=== PATIENT | female | born 1955 ===

== ENCOUNTER 2019-02-25 21:45 | Inpatient (IN) | payer MEDICAID ==
[2019-02-25] MEDS ORDERED: Albuterol-Ipratrop 3 mg / 0.5 (3 ml) UD INH STA ×3 (22:03→22:04)
[2019-02-25] MEDS ORDERED: Albuterol-Ipratrop 3 mg / 0.5 (3 ml) UD ONE (22:11)
[2019-02-25 22:38] LABS: ABG ALLEN TEST YES; ARTERIAL BLOOD GAS HCO3 23.2 mmol/L (21-28); ARTERIAL BLOOD GAS O2 SAT 94.6 % (95-98); ARTERIAL BLOOD GAS PCO2 40 mm/Hg (35-45); ARTERIAL BLOOD GAS PH 7.37 (7.35-7.45); ARTERIAL BLOOD GAS PO2 63 mm/Hg (80-100); ARTERIAL BLOOD GAS TCO2 24.3 mmol/L (22-28)
[2019-02-25 22:59] LABS: BASO % 0.1 % (0.0-2.0); HEMOGLOBIN 12.4 g/dL (12.0-16.0); LYMPH # 0.8 K/uL (1.0-4.3); LYMPH % 8.1 % (20.0-40.0); MEAN CELL VOLUME 88.9 fl (81.0-99.0); MEAN CORPUSCULAR HEMOGLOBIN 29.9 pg (27.0-31.0); MEAN CORPUSCULAR HGB CONC 33.6 g/dL (33.0-37.0); MEAN PLATELET VOLUME 7.6 fl (7.2-11.7); MONO # 0.8 K/uL (0.0-0.8); MONO % 8.3 % (0.0-10.0); NEUT # 8.4 K/uL (1.8-7.0); NEUT % 83.5 % (50.0-75.0); NRBC % 0.1 % (0.0-0.0); PLATELET COUNT 324 K/uL (130-400); RBC 4.14 Mil/uL (3.80-5.20); RED CELL DISTRIBUTION WIDTH 13.7 % (11.5-14.5)
[2019-02-25 23:02] LABS: INR 1.6; PROTHROMBIN TIME 18.1 Seconds (9.8-13.1)
[2019-02-25 23:05] LABS: BLOOD UREA NITROGEN 34 mg/dl (7-17); CALCIUM 8.8 mg/dL (8.4-10.2); GFR NON-AFRICAN AMERICAN > 60; PARTIAL THROMBOPLASTIN TIME 36.6 Seconds (25.6-37.1)
[2019-02-25 23:17] LABS: B-TYPE NATRIURETIC PEPTIDE 756 pg/ml (0-900)
[2019-02-25] MEDS ORDERED: Vancomycin 1 g Inj ONE (23:35)
[2019-02-25] MEDS: Sodium Chloride 0.9% 2,000 ML IV STA (23:41)
--- NOTE | 2019-02-25 23:54 | ED PDOC ---
HPI: CCC, URI, Sore Throat Time Seen by Provider: 02/25/19 21:50 Chief Complaint (Nursing): Shortness Of Breath Chief Complaint (Provider): Cough History Per: Patient History/Exam Limitations: no limitations Onset/Duration Of Symptoms: Days (x 1 month) Current Symptoms Are (Timing): Still Present Associated Symptoms: Fever (subjective), Other (chest pain) Ear Symptoms: Bilateral: None Additional Complaint(s): 63 year old female with a history of CAD and HTN presents to the ED via EMS for evaluation of a cough for month associated with subjective fevers and daily chest pain. Patient reports she expected the cough to improve, but it persisted, prompting ED visit. Patient states that she had pneumonia before and quit smoking five years ago. However, she continues to vape daily. She offers no other medical complaints. PMD: PMD in [place] Past Medical History Reviewed: Historical Data, Nursing Documentation, Vital Signs Vital Signs: Last Vital Signs Temp 98.4 F 02/25/19 21:50 Pulse 116 H 02/25/19 21:50 Resp 21 02/25/19 21:50 BP 110/63 02/25/19 21:50 Pulse Ox 81 L 02/25/19 21:50 - Medical History PMH: CAD, HTN - Surgical History Surgical History: No Surg Hx - Family History Family History: States: Unknown Family Hx - Social History Ex-Smoker (has not smoked in the last 12 months): Yes (Quit 5 years ago; continues to vape daily) - Home Medications Home Medications: Ambulatory Orders Medication Instructions Recorded ALPRAZolam [Xanax] 1 mg PO HS 02/26/19 Aspirin [Adult Low Dose Aspirin EC] 81 mg PO DAILY 02/26/19 - Allergies Allergies/Adverse Reactions: Allergies Allergy/AdvReac Type Severity Reaction Status Date / Time iodine Allergy Intermediate swelling Verified 02/25/19 22:44 and SOB latex Allergy RASH Verified 02/25/19 21:50 Penicillins Allergy RASH Verified 02/25/19 21:50 Review of Systems ROS Statement: Except As Marked, All Systems Reviewed And Found Negative Constitutional: Positive for: Fever (subjective). Negative for: Chills, Sweats Respiratory: Positive for: Cough Physical Exam - Reviewed Nursing Documentation Reviewed: Yes Vital Signs Reviewed: Yes - Physical Exam Appears: Positive for: No Acute Distress (appears older than stated age) Head Exam: Positive for: ATRAUMATIC, NORMAL INSPECTION, NORMOCEPHALIC Skin: Positive for: Warm, Dry, Pallor Eye Exam: Positive for: EOMI, Normal appearance, PERRL Neck: Positive for: Normal, Painless ROM, Supple Cardiovascular/Chest: Positive for: Tachycardia (regular rhythm). Negative for: Murmur Respiratory: Positive for: Rhonchi (right lung field), Wheezing (right lung field), Respiratory Distress (mild), Other (tachypnea) Gastrointestinal/Abdominal: Positive for: Normal Exam, Soft. Negative for: Tenderness Back: Positive for: Normal Inspection. Negative for: L CVA Tenderness, R CVA Tenderness Extremity: Positive for: Normal ROM (x 4). Negative for: Deformity Neurological/Psych: Positive for: Awake, Alert, Normal Tone, Oriented (x 3). Negative for: Motor/Sensory Deficits - Laboratory Results Result Diagrams: 02/25/19 22:51 02/25/19 22:51 Lab Results: pCO2 40 mm/Hg (35-45) 02/25/19 22:19 pO2 63 mm/Hg (80-100) L 02/25/19 22:19 HCO3 23.2 mmol/L (21-28) 02/25/19 22:19 ABG pH 7.37 (7.35-7.45) 02/25/19 22:19 ABG Total CO2 24.3 mmol/L (22-28) 02/25/19 22:19 ABG O2 Saturation 94.6 % (95-98) L 02/25/19 22:19 ABG Base Excess -2.0 mmol/L (-2.0-3.0) 02/25/19 22:19 Ricardo Test Yes 02/25/19 22:19 ABG Potassium 3.3 mmol/L (3.6-5.2) L 02/25/19 22:19 A-a O2 Difference 37.0 mm/Hg 02/25/19 22:19 Sodium 136.0 mmol/L (132-148) 02/25/19 22:19 Chloride 102.0 mmol/L (98-107) 02/25/19 22:19 Glucose 125 mg/dL (65-105) H 02/25/19 22:19 Lactate 2.8 mmol/L (0.7-2.1) H 02/25/19 22:19 FiO2 21.0 % 02/25/19 22:19 PT 18.1 Seconds (9.8-13.1) H 02/25/19 22:51 INR 1.6 02/25/19 22:51 APTT 36.6 Seconds (25.6-37.1) 02/25/19 22:51 D-Dimer, Quantitative 1023 ng/mlDDU (0-230) H 02/25/19 22:51 Troponin I < 0.0120 ng/mL (0.00-0.120) 02/25/19 22:51 NT-Pro-B Natriuret Pep 756 pg/ml (0-900) 02/25/19 22:51 - ECG O2 Sat by Pulse Oximetry: 81 Pulse Ox Interpretation: Abnormal - Critical Care Total Time (In Min): 60 Documented Critical Care: Time excludes all time spent performint seperately billable procedures Medical Decision Making Medical Decision Makin:04 Impression: 63 year old ill-appearing female with a cough for one month Differential diagnoses include but are not limited to: pneumonia vs URI vs COPD vs ACS Plan: --EKG --ABG Shock Panel --Alcohol serum --BNP --BMP --CBC --Troponin --D Dimer --PTT --PT --CXR --Duoneb 3 ml INH --Duoneb 3 ml INH --Duoneb 3 ml INH --Peak flow pre/post --Peak flow pre/post --NS IV 2,000 mls --Solu-medrol 125 mg IVP --Toradol 30 mg IV --Vancomycin 1 gm in NS 250 ml IVPB 23:47 On re-evaluation, patient shows significant improvement and is speaking full sentences. Her pulse ox is now 94 on a nasal cannula. Chest x-ray shows large right upper lobe pneumonia. CT chest will be obtained to further evaluate. Unable to obtain a CT angio due to patient's iodine allergy. Condition is unlikely related to pulmonary embolism 1:00 Patient became further hypoxic during CT, likely because O2 fell off Patient feeling much improved after another duoneb Despite hypoxia, likely this is semi-chronic given compensated ABG results. 01:22 CT Chest FINDINGS: Severe emphysema. Bilateral peribronchial interstitial thickening suggestive of bronchitis. Right upper lobe pulmonary consolidation suggestive of pneumonia. Normal unenhanced main pulmonary artery and right and left pulmonary arteries. Normal bilateral peripheral pulmonary arteries. Normal thoracic aorta and visualized great vessels. There is no demonstrated aortic aneurysm. Normal heart and pericardium. Normal mediastinum. Normal hilar regions. Normal visualized trachea and bronchi. Normal pleura. Normal chest wall structures. Normal osseous structures. Normal visualized upper abdomen. IMPRESSION: Severe emphysema. Bilateral peribronchial interstitial thickening suggestive of bronchitis. Right upper lobe pulmonary consolidation suggestive of pneumonia. 2:00 --Patient desaturated while trying to urinate to 65%. --Patient placed on BIPAP with good response: O2 saturation increased to 90s and patient verbally reports that she is feeling better Scribe Attestation: Documented by Christiana Velazquez, acting as a scribe Teri Chaudhry MD Provider Scribe Attestation: All medical record entries made by the Scribe were at my direction and personally dictated by me. I have reviewed the chart and agree that the record accurately reflects my personal performance of the history, physical exam, medical decision making, and the department course for this patient. I have also personally directed, reviewed, and agree with the discharge instructions and disposition. Disposition - Clinical Impression Clinical Impression: Pneumonia, Hypoxia - Patient ED Disposition Is Patient to be Admitted: Yes - Disposition Disposition Time: 02:00 Condition: FAIR
[2019-02-26] MEDS ORDERED: Albuterol-Ipratrop 3 mg / 0.5 (3 ml) UD ONE (00:28)
[2019-02-26 00:38] LABS: TOTAL CELLS COUNTED 100
[2019-02-26 00:39] LABS: BANDS 10 % (0-2); LYMPHOCYTE 9 % (20-50); MONOCYTE 9 % (0-10); NEUTROPHIL 72 % (42-75)
[2019-02-26 00:40] LABS: PLATELET ESTIMATE NORMAL (NORMAL)
[2019-02-26] MEDS ORDERED: Albuterol-Ipratrop 3 mg / 0.5 (3 ml) UD INH STA (01:03)
[2019-02-26] MEDS: Sodium Chloride 0.9% 2,000 ML IV STA (01:14)
[2019-02-26] MEDS ORDERED: levoFLOXacin 750 mg in D5W 750 MG/150 ML BAG IVPB STA (01:32)
[2019-02-26 02:54] LABS: ABG ALLEN TEST YES; ARTERIAL BLOOD GAS O2 SAT 95.4 % (95-98); ARTERIAL BLOOD GAS PCO2 48 mm/Hg (35-45); ARTERIAL BLOOD GAS PH 7.21 (7.35-7.45); ARTERIAL BLOOD GAS PO2 73 mm/Hg (80-100); ARTERIAL BLOOD GAS TCO2 20.7 mmol/L (22-28)
[2019-02-26] MEDS ORDERED: Chlorhexidine Gluconate 1 APPL/PKT TP ONE (04:59)
[2019-02-26] MEDS ORDERED: Sodium Chloride 0.9% 1,000 ML IV SCH ×2 (05:30→07:00)
--- NOTE | 2019-02-26 06:31 | CP.PCM.CON ---
History of Present Illness - History of Present Illness History of Present Illness: Attending: Rekha Bedoya MD PMD: In [place] Reason for consult: critical care Management Chief Complaint: Coughing with purulent phlegm/SOB HPI: The hx is obtained from the patient and after review of the radiological, laboratory and medical records. This is a 63 years old female with hx of ACS with 2 coronary stents, Anxiety and Pneumonia who comes referring worsening of a 4 weeks of coughing with greenish brown sputum and associate Chest pain, subjective fevers; SOB on minimal exertion. She quit smoking five years ago but has continued to vape daily. PMH: HTN; CAD with heart attack; Pneumonia; Anxiety; PSH: Hysterectomy; Tonsillectomy SH: Former Smoker of cigarette, FH: Stated no known family hx Allergies: Iodine; PCN; Lates Medication: Reviewed Review of Systems - Constitutional Constitutional: Fatigue, Fever, Headache, Weakness. absent: Chills - EENT Eyes: Requires Corrective Lenses. absent: Blurred Vision, Diplopia Ears: absent: Decreased Hearing, Ear Discharge, Tinnitus Nose/Mouth/Throat: absent: Epistaxis, Nasal Congestion, Sinus Pain, Sinus Pressure, Dysphagia - Cardiovascular Cardiovascular: Chest Pain, Dyspnea, Palpitations. absent: Edema, Leg Edema, Orthopnea - Respiratory Respiratory: Cough, Dyspnea, Chest Congestion. absent: Wheezing, Stridor, Ex cessive Mucous Production - Gastrointestinal Gastrointestinal: Nausea, Vomiting. absent: Abdominal Pain, Constipation, Diarrhea - Genitourinary Genitourinary: absent: Dysuria, Flank Pain, Urinary Frequency - Musculoskeletal Musculoskeletal: Myalgias. absent: Joint Swelling - Integumentary Integumentary: absent: Pruritus, Rash, Skin Ulcer, Sores, Striae, Swelling - Neurological Neurological: Headaches, Tingling, Weakness. absent: Dizziness, Numbness, Focal Weakness - Psychiatric Psychiatric: Anxiety. absent: Depression, Panic Attacks - Endocrine Endocrine: absent: Palpitations, Polydipsia, Polyphagia, Polyuria - Hematologic/Lymphatic Hematologic: absent: Easy Bleeding, Easy Bruising Past Patient History - Past Medical History & Family History Past Medical History?: Yes - Past Social History Smoking Status: Former Smoker Chewing Tobacco Use: No Cigar Use: No Alcohol: None Drugs: Denies, Inhalants Home Situation {Lives}: Alone - CARDIAC Hx Cardiac Disorders: Yes Hx Heart Attack: Yes (5 years ago, as stated.) Hx Hypertension: Yes - PULMONARY Hx Respiratory Disorders: Yes Hx Pneumonia: Yes - NEUROLOGICAL Hx Neurological Disorder: No - HEENT Hx HEENT Problems: No - RENAL Hx Chronic Kidney Disease: No - ENDOCRINE/METABOLIC Hx Endocrine Disorders: No - HEMATOLOGICAL/ONCOLOGICAL Hx Blood Disorders: No Hx AIDS: No Hx Human Immunodeficiency Virus (HIV): No - INTEGUMENTARY Hx Dermatological Problems: No - MUSCULOSKELETAL/RHEUMATOLOGICAL Hx Musculoskeletal Disorders: No Hx Falls: No - GENITOURINARY/GYNECOLOGICAL Hx Genitourinary Disorders: No - PSYCHIATRIC Hx Psychophysiologic Disorder: Yes Hx Anxiety: Yes Hx Substance Use: No - SURGICAL HISTORY Hx Surgeries: Yes Hx Cardiac Catheterization: Yes Hx Hysterectomy: Yes Hx Tonsillectomy: Yes - ANESTHESIA Hx Anesthesia: Yes Hx Anesthesia Reactions: No Meds Allergies/Adverse Reactions: Allergies Allergy/AdvReac Type Severity Reaction Status Date / Time iodine Allergy Intermediate swelling Verified 02/25/19 22:44 and SOB latex Allergy RASH Verified 02/25/19 21:50 Penicillins Allergy RASH Verified 02/25/19 21:50 - Medications Medications: Current Medications Sodium Chloride (Sodium Chloride 0.9%) 1,000 mls @ 1,000 mls/hr IV .Q1H DANY Stop: 02/27/19 05:26 Physical Exam - Constitutional Appears: Toxic, No Acute Distress - Head Exam Head Exam: ATRAUMATIC - Eye Exam Eye Exam: EOMI, Normal appearance Pupil Exam: NORMAL ACCOMODATION, PERRL - ENT Exam ENT Exam: Mucous Membranes Dry, Normal Exam, Normal External Ear Exam, Normal Oropharynx - Neck Exam Neck exam: Positive for: Full Rom, Normal Inspection. Negative for: Lymphad enopathy, Tenderness - Respiratory Exam Respiratory Exam: Rales - Cardiovascular Exam Cardiovascular Exam: Tachycardia, REGULAR RHYTHM, Rubs, +S1, +S2, Systolic Murmur - GI/Abdominal Exam GI & Abdominal Exam: Normal Bowel Sounds, Pulsatile Mass, Soft. absent: Organomegaly, Tenderness - Rectal Exam Rectal Exam: Deferred - Extremities Exam Extremities exam: Negative for: full ROM, joint swelling, normal inspection - Back Exam Back exam: NORMAL INSPECTION. absent: CVA tenderness (L), CVA tenderness (R) - Neurological Exam Neurological exam: Alert, CN II-XII Intact, Oriented x3, Reflexes Normal - Psychiatric Exam Psychiatric exam: Flat Affect - Skin Skin Exam: Dry, Normal Color, Warm Results - Vital Signs Recent Vital Signs: Last Vital Signs Temp 97.6 F 02/26/19 02:41 Pulse 105 H 02/26/19 05:24 Resp 27 H 02/26/19 05:24 BP 94/53 L 02/26/19 02:41 Pulse Ox 100 02/26/19 05:24 - Labs Result Diagrams: 02/26/19 06:38 02/26/19 09:22 Labs: Laboratory Results - last 24 hr 02/25/19 02/25/19 02/25/19 22:19 22:51 22:51 WBC 10.0 RBC 4.14 Hgb 12.4 Hct 36.8 MCV 88.9 MCH 29.9 MCHC 33.6 RDW 13.7 Plt Count 324 MPV 7.6 Neut % (Auto) 83.5 H Lymph % (Auto) 8.1 L Grayson % (Auto) 8.3 Eos % (Auto) 0.0 Baso % (Auto) 0.1 Neut # (Auto) 8.4 H Lymph # (Auto) 0.8 L Grayson # (Auto) 0.8 Eos # (Auto) 0.0 Baso # (Auto) 0.0 Neutrophils % (Manual) 72 Band Neutrophils % 10 H Lymphocytes % (Manual) 9 L Monocytes % (Manual) 9 Platelet Estimate Normal RBC Morphology Normal PT INR APTT D-Dimer, Quantitative pCO2 40 pO2 63 L HCO3 23.2 ABG pH 7.37 ABG Total CO2 24.3 ABG O2 Saturation 94.6 L ABG Base Excess -2.0 Ricardo Test Yes ABG Potassium 3.3 L A-a O2 Difference 37.0 Sodium 136.0 136 Chloride 102.0 101 Glucose 125 H Lactate 2.8 H Vent Mode Mechanical Rate FiO2 21.0 Inspiratory BiPAP Expiratory BiPAP Crit Value Called To Crit Value Called By Crit Value Read Back Blood Gas Notified Time Potassium 4.0 Carbon Dioxide 22 Anion Gap 17 BUN 34 H Creatinine 0.9 Est GFR ( Amer) > 60 Est GFR (Non-Af Amer) > 60 Random Glucose 126 H Calcium 8.8 Troponin I < 0.0120 NT-Pro-B Natriuret Pep 756 Arterial Blood Potassium 3.3 L Alcohol, Quantitative < 10 02/25/19 02/26/19 22:51 02:49 WBC RBC Hgb Hct MCV MCH MCHC RDW Plt Count MPV Neut % (Auto) Lymph % (Auto) Grayson % (Auto) Eos % (Auto) Baso % (Auto) Neut # (Auto) Lymph # (Auto) Grayson # (Auto) Eos # (Auto) Baso # (Auto) Neutrophils % (Manual) Band Neutrophils % Lymphocytes % (Manual) Monocytes % (Manual) Platelet Estimate RBC Morphology PT 18.1 H INR 1.6 APTT 36.6 D-Dimer, Quantitative 1023 H pCO2 48 H pO2 73 L HCO3 18.0 L ABG pH 7.21 L ABG Total CO2 20.7 L ABG O2 Saturation 95.4 ABG Base Excess -8.7 L Ricardo Test Yes ABG Potassium 2.9 L A-a O2 Difference 295.0 Sodium 138.0 Chloride 104.0 Glucose 203 H Lactate 4.8 H* Vent Mode Bipap Mechanical Rate 16 FiO2 60.0 Inspiratory BiPAP 12 Expiratory BiPAP 6 Crit Value Called To Richa swan md Crit Value Called By 333 Crit Value Read Back Y Blood Gas Notified Time 253 Potassium Carbon Dioxide Anion Gap BUN Creatinine Est GFR ( Amer) Est GFR (Non-Af Amer) Random Glucose Calcium Troponin I NT-Pro-B Natriuret Pep Arterial Blood Potassium 2.9 L Alcohol, Quantitative - EKG Data EKG comments: Sinus [id number]/min - Imaging and Cardiology Chest x-ray Status: Image reviewed by me Additional comment: Right upper lobe infiltrate CT scan - chest Status: Image reviewed by me, Report reviewed by me Additional comment: Severe Emphysema Right upper lobe infiltrate No signs of PE Assessment & Plan - Assessment and Plan (Free Text) Assessment: #. Community acquired Pneumonia #. Septic Shock #. Hypoxic respiratory failure #. LIZANDRO #. Elevated D dimer Plan: 63 years old female with hx of ACS with 2 coronary stents, Anxiety and Pneumonia who comes referring worsening of a 4 weeks of coughing with greenish brown sputum and associate Chest pain, subjective fevers; SOB on minimal exertion. She quit smoking five years ago but has continued to vape daily. #. Right upper lung infiltrate most likely due to Community acquired Pneumonia, r/o TB, the patient was coughing for 4 weeks, r/o Nocardiaiasis, even fungal infection. - Will need pulmonary consult - Follow Sputum C&S - AFB - Quantiferon - Vancomycin - Levofloxacin - Aztreonam #. Septic Shock with elevated lactic acid, hypotension resistant to IV fluid boluses, Tachypnea, Bancs of 10 and a Pneumonia - Consult ID - Antibiotics - IV fluid to normalize Lactic Acid - Follow Blood Culture - Sputum culture - Follow CBC #. Hypoxic respiratory failure with severe Emphysemia(COPD) - Patient placed on BIPAP - Duonbs - Solumedrol - Follow ABG #. LIZANDRO - IV fluids - Follow renal labs #. Elevated D dimer. most likely due to th lung lesion - CT lung was negative for PE - May need Duplex US of the lower extremities #. DVT Prophylaxis with SDC and Lovenox #. Code Status Full Stan Burt MD - Date & Time Date: 02/26/19 Time: 06:30
[2019-02-26 06:38] LABS: ABG ALLEN TEST YES; ARTERIAL BLOOD GAS HCO3 20.1 mmol/L (21-28); ARTERIAL BLOOD GAS O2 SAT 99.3 % (95-98); ARTERIAL BLOOD GAS PCO2 36 mm/Hg (35-45); ARTERIAL BLOOD GAS PH 7.33 (7.35-7.45); ARTERIAL BLOOD GAS PO2 98 mm/Hg (80-100); ARTERIAL BLOOD GAS TCO2 20.1 mmol/L (22-28)
[2019-02-26 06:41] LABS: BASO % 0.2 % (0.0-2.0); EOS # 0.1 K/uL (0.0-0.7); EOS % 2.8 % (0.0-4.0); HEMOGLOBIN 11.1 g/dL (12.0-16.0); LYMPH # 0.2 K/uL (1.0-4.3); LYMPH % 8.2 % (20.0-40.0); MEAN CORPUSCULAR HEMOGLOBIN 29.7 pg (27.0-31.0); MEAN CORPUSCULAR HGB CONC 33.4 g/dL (33.0-37.0); MEAN PLATELET VOLUME 8.1 fl (7.2-11.7); MONO # 0.2 K/uL (0.0-0.8); MONO % 6.9 % (0.0-10.0); NEUT # 1.8 K/uL (1.8-7.0); NEUT % 81.9 % (50.0-75.0); NRBC % 0.1 % (0.0-0.0); RBC 3.75 Mil/uL (3.80-5.20); RED CELL DISTRIBUTION WIDTH 14.2 % (11.5-14.5); WHITE BLOOD COUNT 2.2 K/uL (4.8-10.8)
[2019-02-26] MEDS ORDERED: MethylPREDNISolone 40 mg Vial IVP ONE (07:00)
--- NOTE | 2019-02-26 07:04 | PCM.SEPTIC ---
Sepsis Progress Note - Reassessment Type Date of Evaluation: 02/26/19 Time of Evaluation: 06:00 (The patient is still considering the placement of a central line.) Reassessment Type: Non-invasive reassessment - Non Invasive Reassessment Were the most recent vital sign reviewed: Yes Vital Sign (Latest): Temp Pulse Resp BP Pulse Ox 97.6 F 101 H 27 H 94/53 L 100 02/26/19 02:41 02/26/19 06:52 02/26/19 05:24 02/26/19 02:41 02/26/19 05:24 Cardiovascular: Yes: Regular Rate, Rhythm, Chest Non Tender, Tachycardia. No: Edema, Gallop, JVD, Murmur, Bradycardia, Ectopy, Friction Rub, Irregularly Irregular Respiratory: Yes: Accessory Muscle Use, Rales, Respiratory Distress. No: Decreased Breath Sounds, Crackles, Rhonchi, Stridor, Wheezing, Plerual Rub Capillary Refill: Delayed Pulses: Normal Radial, Normal Dorsalis Pedis, Normal Posterior Tibialis Skin: Normal Color, Warm, Dry - Invasive Reassessment (complete 2 of 4) Was a Central Venous Pressure Measurement obtained within 6 Hours after the presentation of septic shock: No Was a central venous oxygen measurement obtained within 6 hours after the presentation of septic shock: No Was a bedside cardiovascular ultrasound performed within 6 hours after the presentation of septic shock: No Was a passive leg raise performed or was a fluid challenge performed within 6 hrs of the initial fluid bolus: Yes Fluid Challenge performed: Yes
[2019-02-26] MEDS: MethylPREDNISolone 40 mg Vial IVP SCH ×3 (07:08→22:00)
[2019-02-26] MEDS: Albuterol-Ipratrop 3 mg / 0.5 (3 ml) UD INH SCH ×4 (07:14→19:20)
--- NOTE | 2019-02-26 08:18 | CARD ---
APPROVED REPORT Date of service: 02/25/2019 EKG Measurement Heart [id number] <Conclusion> Sinus tachycardia Left atrial enlargement Abnormal ECG
[2019-02-26] MEDS: Lactated Ringer's 1,000 ML IV SCH ×2 (08:45→18:00)
[2019-02-26] MEDS ORDERED: Enoxaparin 30 mg Syringe SC SCH (09:00)
[2019-02-26] MEDS ORDERED: Tuberculin 5 Units/0.1 ml Inj ID ONE (09:09)
[2019-02-26] MEDS: Aztreonam 1 GM in Sodium Chloride 0.9% 100 ML IVPB SCH ×3 (09:39→22:00)
[2019-02-26 10:10] LABS: ALBUMIN 2.9 g/dL (3.5-5.0); ALT/SGPT 42 U/L (9-52); AST/SGOT 33 U/L (14-36); BLOOD UREA NITROGEN 27 mg/dl (7-17); GFR NON-AFRICAN AMERICAN > 60
--- NOTE | 2019-02-26 13:40 | CT ---
Date of service: 02/25/2019 PROCEDURE: CT Chest without contrast HISTORY: RUL PNA on CXR COMPARISON: Frontal chest radiograph 02/25/2019. TECHNIQUE: Contiguous axial images were obtained through the chest without intravenous contrast enhancement. Sagittal and coronal reconstructions were performed. Radiation dose: Total exam DLP = 154.21 mGy-cm. This CT exam was performed using one or more of the following dose reduction techniques: Automated exposure control, adjustment of the mA and/or kV according to patient size, and/or use of iterative reconstruction technique. FINDINGS: LUNGS: Extensive centrilobular emphysematous changes are identified affecting the apices greater than bases. Diffuse hyperinflation noted as well. There is dense opacification of the right upper lobe with likely on the basis of pneumonia. No definitive abdomen luminal or constricting mass appreciable related to the central right airways. Contrast CT is advised for better characterization of the mediastinum and perihilar anatomy nevertheless. No definitive mass appreciable in well aerated remaining lungs at the right and the entire left lung. Limited linear atelectasis or fibrosis is seen at the bilateral lung bases. A punctate calcified granuloma is identified at right apex posteriorly. MEDIASTINUM: The thoracic inlet appears unremarkable grossly. Unremarkable thoracic aorta. No aneurysm. Normal sized heart. Occasional coronary artery calcifications identified. Main pulmonary artery unremarkable. No vascular congestion. Lack images contrast limits definition of the mediastinal anatomy, however, there is an enlarged precarinal lymph node measuring 2.3 x 1.8 cm. Calcific atherosclerotic changes are seen related to the thoracic aorta. PLEURA: No pleural fluid. No pneumothorax. BONES: No fracture. No destructive lesion. UPPER ABDOMEN: There are multiple small lucencies scattered at the left greater than right lobe liver, poorly characterized in this unenhanced CT exam. The dome, 1.7 cm lucency measures 6 Hounsfield units. At the left lobe, a 2.9 cm lucency measures 10 Hounsfield units and at the left lobe superiorly, there is a 2.2 cm lucency measuring 0.4 Hounsfield units. These low density measurements suggest cysts. Nevertheless contrast CT is advised for added characterization or ultrasound. A left renal cyst is identified at the upper midpole measure 1.9 cm and 11 Hounsfield units with a 10.8 mm cyst at the upper pole right kidney 7.3 Hounsfield units. OTHER FINDINGS: None. IMPRESSION: Extensive right upper lobe pneumonia with mild mediastinal and potential right hilar lymphadenopathy. Lack images contrast limits evaluation of the mediastinum. Prominent emphysema/COPD. Multiple hepatic lucencies are identified with many too small to characterize. Based on Hounsfield unit analysis as well as statistics, these are likely cysts with few at the visualized kidneys as well. Consider follow-up ultrasound for added characterization. Discordant with [facility] preliminary report 02/26/2019, 1:25 a.m. in terms of hepatic and renal lucencies. Findings discussed with ICU nurse Juliette with written down and read back verification, 03/28/2019 1:30 p.m..
--- NOTE | 2019-02-26 14:24 | RAD ---
Date of service: 02/25/2019 PROCEDURE: CHEST RADIOGRAPH, 1 VIEW HISTORY: cp, sob COMPARISON: None available. FINDINGS: LUNGS: Dense consolidation of the right upper lobe consistent with pneumonia PLEURA: No pneumothorax or pleural fluid seen. CARDIOVASCULAR: No aortic atherosclerotic calcification present. Normal. OSSEOUS STRUCTURES: No significant abnormalities. VISUALIZED UPPER ABDOMEN: Normal. OTHER FINDINGS: None. IMPRESSION: Dense consolidation of the right upper lobe consistent with pneumonia
[2019-02-26] MEDS: Enoxaparin 40 mg Syringe SC SCH (15:41)
--- NOTE | 2019-02-26 17:35 | CP.CCUPN ---
CCU Subjective - Physician Review Subjective (Free Text): Admission notes, labs, and CXR / CT Chest results reviewed: 63F shoulder boner with PMH: CAD/ DC / PCI -RCA 5 years ago, Smoker with 20+ pack yr history, using vapes now, admitted with essentially 1 week h/o cough, night sweats and night fevers, denies any weight loss, no recent travel history, gets sick yearly during the summer after exposure to air conditioner, has productive cough with greenish-brown phlegm, denies any sick contacts, no h/o of Tb disease, admitted to Tele unit, then upgraded to ICU due to persistent hypoxemia and hypotension. Given fluid challenge and placed on BiPAP support, later refused BiPAP support, and place onto HFNC at 30 LPM with 100% oxygen, given additional fluid challenges and stabilized with SBP 100, HR 88, sinus, SPO2 93% 9best observed), denies any chest discomfort, n/v, palpitations, dizziness, nor other pain. ROS: No other pertinent negs or positive on 10+ system review Other PMSFH: All other Nursing and physician documentation reviewed to date; no new pertinent info noted relevant to current medical problems. EXAM- HEENT: no icterus, pupils equal, 3 mm and reactive, no gaze preference, no nystagmus NECK: no visible JVD, supple, carotids equal upstroke bilat/no bruits CHEST: decreased BS L base, diffuse crackles R lung, no wheezes audible HEART: regular, distant, S1S2, no murmur audible, no rubs. ABD: soft, minimal distention, BS not heard, drains intact EXT: no edema; no calf tenderness, no palpable cords, distal pulses intact and symmetrical, SCDs on bilat, no cyanosis, no clubbing. NEURO: No focal motor deficits SKIN: no rashes LABS: WBC= 10.0 to 2.2 HGB= 11.1 PLTs = 268K Coags: INR =1.6, PTT normal. DDimer = 1023 7.33/36/98 on BIPAP 16/6, 60%, rate 16., TV approx. 600ml. Na= 141 K= 3.4 Cl= 113 HCO3= 16 BUN/Cr= 27/0.5 BS= 126 Trop negative x1. CXR: (my interp) extensive RUL infiltrate., bilat bleb disease, hyperinflation bilat. IMPRESSION / MAJOR PROBLEMS NOW: 1. Acute Resp Insuff 2 RUL Pneumonia; r/o CAP versus Atypical organisms: Legionella, Pulm Tb, Aspergillus, Nocardia, other fungal, versus post- obstructive pneumonitis with underlying CA. 2. Azotemia / Dehydration / Hypokalemia 3. Leukopenia / Anemia of chronic Disease 4. R/o HIV disease 5. h/o CAD PLAN: 1. Sputum for routine C&S, AFB Smear & Culture, fungal cx. Induce of necessary. 2. Quantiferon testing, Legionella urinary Ag, Aspergillus serology /Galactomannan, Pulm to consider FOB/BAL. 3. Empiric abx coverage in Pen allergic patient: started empirically already on Levaquin, Vanco, Aztreonam. Discussed possibility of anti-Tb regimen if all AFB sputum samples can be obtained today. 4. Prelim CT Chest results show multiple hepatic cysts and renal cysts, will get US study to further eval. 5. Watch for need for MV support.
[2019-02-26] MEDS ORDERED: Potassium Chloride 20 mEq ER Tab PO ONE (19:04)
--- NOTE | 2019-02-26 19:10 | CP.PCM.PN ---
Subjective - Date & Time of Evaluation Date of Evaluation: 02/26/19 Time of Evaluation: 19:11 - Subjective Subjective: I D NOTE HAVE EXAMINED PATIENT.REVIEWED FMR DISCUSSED IN DETAIL c DR.CHU WEST c PLAN FOR TREATMENT BUT PER WILL START ANTI TB RX AFTER 3 AFB CULTURES ARE OBTAINED Objective - Vital Signs/Intake and Output Vital Signs (last 24 hours): Temp Pulse Resp BP Pulse Ox 99.1 F 119 H 40 H 106/72 100 02/26/19 16:00 02/26/19 18:00 02/26/19 18:00 02/26/19 18:00 02/26/19 18:00 Intake and Output: 02/26/19 02/27/19 18:59 06:59 Intake Total 2230 Output Total 951 Balance 1279 - Medications Medications: Current Medications Acetaminophen (Tylenol 325mg Tab) 650 mg PO Q4 PRN PRN Reason: Fever >100.4 F Albuterol/Ipratropium (Duoneb 3 Mg/0.5 Mg (3 Ml) Ud) 3 ml INH RQ4 DANY Last Admin: 02/26/19 15:36 Dose: 3 ml Enoxaparin Sodium (Lovenox) 40 mg SC DAILY DANY; Protocol Last Admin: 02/26/19 15:41 Dose: 40 mg Sodium Chloride (Sodium Chloride 0.9%) 1,000 mls @ 1,000 mls/hr IV .Q1H DANY Stop: 02/27/19 05:26 Last Admin: 02/26/19 05:30 Dose: 1,000 mls/hr Aztreonam 1 gm/ Sodium (Chloride) 100 mls @ 100 mls/hr IVPB Q8H DANY; Protocol Last Admin: 02/26/19 15:42 Dose: 100 mls/hr Vancomycin HCl 1 gm/ Sodium (Chloride) 250 mls @ 166.667 mls/hr IVPB Q12 DANY; Protocol Last Admin: 02/26/19 10:45 Dose: 166.667 mls/hr Levofloxacin/Dextrose (Levaquin 750mg) 750 mg in 150 mls @ 100 mls/hr IVPB DAILY@0100 DANY; Protocol Sodium Chloride (Sodium Chloride 0.9%) 1,000 mls @ 1,000 mls/hr IV .Q1H DANY Stop: 02/27/19 06:53 Last Admin: 02/26/19 07:06 Dose: 1,000 mls/hr Lactated Ringer's (Lactated Ringer's) 1,000 mls @ 150 mls/hr IV .Q6H40M [facility] Last Admin: 02/26/19 18:00 Dose: 150 mls/hr Ketorolac Tromethamine (Toradol) 15 mg IVP Q6 PRN PRN Reason: Pain, moderate (4-7) Ketorolac Tromethamine (Toradol) 30 mg IVP Q6 PRN PRN Reason: Pain, severe (8-10) Methylprednisolone (Solu-Medrol) 40 mg IVP Q8H [facility] Last Admin: 02/26/19 15:41 Dose: 40 mg Ondansetron HCl (Zofran Inj) 4 mg IVP Q4 PRN PRN Reason: Nausea/Vomiting Potassium Chloride (K-Dur 20 Meq Er Tab) 40 meq PO ONCE ONE Stop: 02/26/19 19:05 - Labs Labs: 02/26/19 06:38 02/26/19 09:22 PT 18.1 Seconds (9.8-13.1) H 02/25/19 22:51 INR 1.6 02/25/19 22:51 APTT 36.6 Seconds (25.6-37.1) 02/25/19 22:51
--- NOTE | 2019-02-26 20:43 | CON ---
DATE: 02/26/2019 HISTORY OF PRESENT ILLNESS: Ms. Farooq is a 63-year-old female who is referred for pulmonary evaluation by Dr. Dillard following admission from the emergency room with cough, shortness of breath, exercise intolerance, blood-tinged sputum, fever, chills, night sweats for the past several weeks, worse on the day of admission. She indicates that she lives in [place] but works in [place].S developed a coughseveral weeks ago which she thought she just had a cold, but she also has developed nausea and vomiting over the past several days. She was seen in the emergency room and admitted with what appeared to be pneumonia in right upper lobe. She continues to feel weak and frail and has difficulty breathing. O2 saturation was noted to be in the 90s in the emergency room. PAST MEDICAL HISTORY: She has a past medical history of double pneumonia and acute myocardial infarction five years ago. FAMILY HISTORY: Noncontributory. SOCIAL HISTORY: She quit smoking five years ago when she had acute myocardial infarction. 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 She does not use drugs. REVIEW OF SYSTEMS: Essentially remarkable for shortness of breath, exercise intolerance, cough, chest tightness, blood-tinged sputum, fever, night sweats and chills. PHYSICAL EXAMINATION: GENERAL: The patient is skinny, alert, oriented. Appears to be in mild distress because of shortness of breath. VITAL SIGNS: Blood pressure 99/64 with a pulse of 120, respiratory rate is 27 to 37 per minute, O2 saturation 90% of present O2 Ventimask but switched to high-flow oxygen. HEENT: Mouth shows fair hygiene. NECK: JVP flat. LUNGS: Coarse bilateral rales with dullness to right apex, rales more pronounced on the right upper lobe area. BREASTS: Normal. HEART: Regular, tachycardic. ABDOMEN: Soft, nontender. No organomegaly. EXTREMITIES: Show no edema or cyanosis. CENTRAL NERVOUS SYSTEM: Grossly intact. LABORATORY DATA: Remarkable for WBC of 2.2, hemoglobin 11.1, platelet count 268,000, bands of 10, neutrophils 81%, lymphocytes 8. Sodium 136, potassium 4, BUN is 34, creatinine 0.9. Arterial blood gas: The pH of 7.37, pCO2 of 40, pO2 of 63, O2 sat 94%, it is on room air. Chest x-ray and CT scan of the chest done, official report pending, but read by me shows a cavitary infiltrate in right upper lobe with what appears to be a density of consolidation in the right upper lobe area, bullous disease diffusely in both lungs. IMPRESSION: Acute respiratory failure, pneumonic infiltrates with questionable density in right lung. One has to rule out tuberculosis. One also has to rule out pneumonia, rule out lung mass. 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 PLAN: Monitor the patient in intensive care unit. O2 supplementation. IV antibiotics. Would obtain sputum for Gram stain and cultures and sputum for AFB x3. Infectious Disease consultation will be in order. If the patient produces sputum and AFB is negative, she will need bronchoscopy with lavage and possible biopsy. If AFB is positive, she will be begin antitubercular medication once sputum is collected. Case was discussed with Dr. Dillard. Consultation with Infectious Disease already called. Eliud Hernandez MD MTDTana
[2019-02-26] MEDS ORDERED: Potassium Chloride 20 mEq/15 ml LIQ UD PO ONE (21:04)
[2019-02-27] MEDS: Albuterol-Ipratrop 3 mg / 0.5 (3 ml) UD INH SCH ×7 (00:09→23:25)
[2019-02-27] MEDS: levoFLOXacin 750 mg in D5W 750 MG/150 ML BAG IVPB SCH (00:42)
[2019-02-27 04:47] LABS: BASO % 0.1 % (0.0-2.0); EOS % 0.1 % (0.0-4.0); HEMOGLOBIN 9.8 g/dL (12.0-16.0); LYMPH # 0.2 K/uL (1.0-4.3); LYMPH % 5.3 % (20.0-40.0); MEAN CELL VOLUME 88.5 fl (81.0-99.0); MEAN CORPUSCULAR HEMOGLOBIN 30.1 pg (27.0-31.0); MEAN PLATELET VOLUME 7.7 fl (7.2-11.7); MONO % 1.1 % (0.0-10.0); NEUT # 3.1 K/uL (1.8-7.0); NEUT % 93.4 % (50.0-75.0); PLATELET COUNT 254 K/uL (130-400); RBC 3.25 Mil/uL (3.80-5.20); WHITE BLOOD COUNT 3.4 K/uL (4.8-10.8)
--- NOTE | 2019-02-27 04:48 | CON ---
DATE: 02/26/2019 INFECTIOUS DISEASE CONSULTATION. The patient of Dr. Bedoya. HISTORY OF PRESENT ILLNESS: The patient is a 63-year-old female who came with a history of CAD and HTN came to the emergency room, initially evaluation of cough for one month associated with fever and chest pain. She noted no improvement of the cough. She said she had pneumonia in the past and has quit smoking five years ago. There are no other complaints. PHYSICAL EXAMINATION: GENERAL: She is alert and cooperative and oriented to time and place. HEENT: Within normal limits. NECK: Supple. HEART: Tachycardic. No murmur, rub, or gallop. RESPIRATORY: She has rhonchi on the right lung field, and there is wheezing on the right lung field, respiratory distress when she was in the ER. GASTROINTESTINAL: Positive bowel sounds. EXTREMITIES: No C, C, E. DIAGNOSTIC STUDIES: CT of the chest shows extensive right upper lobe pneumonia with mild mediastinal and right hilar lymphadenopathy, prominent emphysema and COPD, multiple hepatic lucencies are identified with many too small to characterize, likely cyst with few visualized as well. LABORATORY DATA: White count was 10 on 02/25/2019 and today is 2.2 with a left shift. She had 10 bands yesterday and her sedimentation rate is 113. Creatinine is 0.5, GFR is greater than 60. Her procalcitonin is 7.76. Her liver function tests are essentially within normal limits and will need to be followed if she is being placed on antituberculosis regimen. She has negative influenza A and B. ASSESSMENT AND PLAN: At the present time, considering right upper lobe pneumonia and dyspepsia, we will consider that this might be tuberculosis. She is started empirically on Levaquin, vancomycin, and aztreonam. Agree with the possibility of treatment in this lady for tuberculosis. Also, agree to the need of ultrasound of the abdomen for diagnosis of the cyst. We will order also stool for ova and parasites. Renzo Soriano MD
[2019-02-27] MEDS: Lactated Ringer's 1,000 ML IV SCH (04:58)
--- NOTE | 2019-02-27 06:13 | HP ---
HISTORY OF PRESENT ILLNESS: This is a 63-year-old female with a history of coronary artery disease, status post stent placement, presented to emergency room with symptoms of progressive shortness of breath and cough with expectoration over the last four to five weeks. The patient was evaluated in the emergency room and found to be hypoxic with pO2 of 63 and pCO2 of 40. The patient was admitted to the intensive care unit as lactic acid also was elevated, and the patient was hypotensive. Other review of system is negative. ALLERGIES: POSITIVE FOR IODINE, PENICILLIN, MUSHROOM, PINEAPPLE, AVOCADO. SOCIAL HISTORY: Ex-smoker. No EtOH or substance abuse. FAMILY HISTORY: Noncontributory. PAST MEDICAL HISTORY: Coronary artery disease, status post PCI. PHYSICAL EXAMINATION: GENERAL: The patient is on high-flow oxygen. She is started on IV antibiotics. VITAL SIGNS: At the time of examination, blood pressure 101/65, temperature 99.1, respiratory rate 30, and pulse 118. HEENT: Pupils equal and reactive to light. Normal-appearing mucosa of the conjunctivae, oropharynx and nasal membrane mucosa. NECK: Supple. No JVD. No carotid bruit. No lymph node. No thyromegaly. CHEST AND LUNGS: Bilateral symmetrical expansion. Good air exchange. Scattered rhonchi and rales. CARDIOVASCULAR SYSTEM: PMI not localized. S1 and S2. No additional sounds. ABDOMEN: Normoactive bowel sounds. No tenderness. No organomegaly. No masses. EXTREMITIES: No cyanosis, no clubbing, no edema. CENTRAL NERVOUS SYSTEM: Alert, awake, oriented x3. Moves all extremities equally. LABORATORY DATA: Blood count showed WBC 2.2. Procalcitonin is elevated at 7.76. Chest x-ray was done and a CAT scan of the chest also was done that showed extensive right upper lobe pneumonia with mild mediastinal and potential right hilar lymphadenopathy, prominent emphysema, COPD. Multiple hepatic lucencies are identified with many too small to characterize. Based on Hounsfield unit analysis as well as statistics, these are likely cysts with few at the visualized kidneys as well. ASSESSMENT: Sepsis, right upper lobe pneumonia, history of coronary artery disease. PLAN: Pulmonary consult. ID consult. Sputum for Gram stain culture and sensitivity. Getting current IV antibiotic that was started by ID and follow both ID and Pulmonary recommendations. [facility] MD Aureliano [facility] # [id number]
[2019-02-27 06:22] LABS: ALB/GLOB RATIO 0.9 (1.0-2.1); ALBUMIN 2.4 g/dL (3.5-5.0); ALT/SGPT 39 U/L (9-52); AST/SGOT 29 U/L (14-36); BLOOD UREA NITROGEN 15 mg/dl (7-17); CALCIUM 8.6 mg/dL (8.4-10.2); GFR NON-AFRICAN AMERICAN > 60
[2019-02-27] MEDS: Aztreonam 1 GM in Sodium Chloride 0.9% 100 ML IVPB SCH ×3 (06:23→22:15)
[2019-02-27] MEDS: MethylPREDNISolone 40 mg Vial IVP SCH ×3 (06:27→23:45)
[2019-02-27 08:21] LABS: BANDS 3 % (0-2); LYMPHOCYTE 5 % (20-50); MONOCYTE 3 % (0-10); NEUTROPHIL 89 % (42-75); TOTAL CELLS COUNTED 100
[2019-02-27 08:22] LABS: HYPOCHROMIC SLIGHT; LARGE PLATELETS PRESENT; PLATELET ESTIMATE NORMAL (NORMAL)
[2019-02-27] MEDS: Enoxaparin 40 mg Syringe SC SCH (09:03)
--- NOTE | 2019-02-27 10:37 | CP.PCM.PN ---
Subjective - Date & Time of Evaluation Date of Evaluation: 02/27/19 Time of Evaluation: 10:37 - Subjective Subjective: SOB IMPROVING STILL COUGHING LESS TACHCARDIC BP STILL LOW Objective - Vital Signs/Intake and Output Vital Signs (last 24 hours): Temp Pulse Resp BP Pulse Ox 98.3 F 113 H 17 89/61 L 100 02/27/19 08:00 02/27/19 10:00 02/27/19 10:00 02/27/19 10:00 02/27/19 10:00 Intake and Output: 02/27/19 02/27/19 06:59 18:59 Intake Total 2095 700 Output Total 800 200 Balance 1295 500 - Medications Medications: Current Medications Acetaminophen (Tylenol 325mg Tab) 650 mg PO Q4 PRN PRN Reason: Fever >100.4 F Albuterol/Ipratropium (Duoneb 3 Mg/0.5 Mg (3 Ml) Ud) 3 ml INH RQ4 DANY Last Admin: 02/27/19 07:43 Dose: 3 ml Enoxaparin Sodium (Lovenox) 40 mg SC DAILY DANY; Protocol Last Admin: 02/27/19 09:03 Dose: 40 mg Ethambutol HCl (Myambutol) 800 mg PO DAILY DANY; Protocol Last Admin: 02/27/19 09:04 Dose: 800 mg Aztreonam 1 gm/ Sodium (Chloride) 100 mls @ 100 mls/hr IVPB Q8H DANY; Protocol Last Admin: 02/27/19 06:23 Dose: 100 mls/hr Vancomycin HCl 1 gm/ Sodium (Chloride) 250 mls @ 166.667 mls/hr IVPB Q12 DANY; Protocol Last Admin: 02/27/19 09:05 Dose: 166.667 mls/hr Levofloxacin/Dextrose (Levaquin 750mg) 750 mg in 150 mls @ 100 mls/hr IVPB DAILY@0100 DANY; Protocol Last Admin: 02/27/19 00:42 Dose: 100 mls/hr Lactated Ringer's (Lactated Ringer's) 1,000 mls @ 150 mls/hr IV .Q6H40M DANY Last Admin: 02/27/19 04:58 Dose: 150 mls/hr Isoniazid (Niazid) 300 mg PO DAILY DANY; Protocol Last Admin: 02/27/19 09:03 Dose: 300 mg Ketorolac Tromethamine (Toradol) 15 mg IVP Q6 PRN PRN Reason: Pain, moderate (4-7) Ketorolac Tromethamine (Toradol) 30 mg IVP Q6 PRN PRN Reason: Pain, severe (8-10) Methylprednisolone (Solu-Medrol) 40 mg IVP Q8H DANY Last Admin: 02/27/19 06:27 Dose: 40 mg Ondansetron HCl (Zofran Inj) 4 mg IVP Q4 PRN PRN Reason: Nausea/Vomiting Pyrazinamide (Pyrazinamide) 1,000 mg PO DAILY [facility]; Protocol Last Admin: 02/27/19 09:03 Dose: 1,000 mg Rifampin (Rifampin Cap) 600 mg PO DAILY [facility]; Protocol Last Admin: 02/27/19 09:04 Dose: 600 mg - Labs Labs: 02/27/19 04:05 02/27/19 04:05 PT 18.1 Seconds (9.8-13.1) H 02/25/19 22:51 INR 1.6 02/25/19 22:51 APTT 36.6 Seconds (25.6-37.1) 02/25/19 22:51 - Constitutional Appears: Chronically Ill - Head Exam Head Exam: ATRAUMATIC, NORMAL INSPECTION, NORMOCEPHALIC - Eye Exam Eye Exam: EOMI, Normal appearance, PERRL Pupil Exam: NORMAL ACCOMODATION, PERRL - ENT Exam ENT Exam: Mucous Membranes Moist, Normal Exam - Neck Exam Neck Exam: Full ROM, Normal Inspection. absent: Lymphadenopathy - Respiratory Exam Respiratory Exam: Decreased Breath Sounds, Prolonged Expiratory Phase, Rales Additional comments: ON HIGH FLOW O2 - Cardiovascular Exam Cardiovascular Exam: REGULAR RHYTHM, +S1, +S2. absent: Murmur - GI/Abdominal Exam GI & Abdominal Exam: Soft, Normal Bowel Sounds. absent: Tenderness - Rectal Exam Rectal Exam: NORMAL INSPECTION - Extremities Exam Extremities Exam: Full ROM, Normal Capillary Refill, Normal Inspection. absent: Joint Swelling, Pedal Edema - Back Exam Back Exam: NORMAL INSPECTION - Neurological Exam Neurological Exam: Alert, Awake, CN II-XII Intact, Normal Gait, Oriented x3 - Psychiatric Exam Psychiatric exam: Normal Affect, Normal Mood - Skin Skin Exam: Dry, Intact, Normal Color, Warm Assessment and Plan - Assessment and Plan (Free Text) Assessment: RESPIRATORY FAILURE PNEUMONIA R/O TB Plan: AFB RESULTS PENDING WILL NEED BRONCHOSCOPIC EVAL OF AIRWAYS IF SPUTUM STUDIES ARE NON-REVEALING AND CXR DOES NOT IMPROVE--CASE DISCUSSED WITH PT
--- NOTE | 2019-02-27 12:00 | CP.CCUPN ---
<Krystyna Ruggiero - Last Filed: 02/27/19 12:00> CCU Subjective - Physician Review Subjective (Free Text): No acute overnight events. Patient seen and examined by bedside this AM Patient was previously on CPAP yesterday but was not tolerating well, high flow was started Patient has tolerated high flow well, maintaining O2 saturation 97-99% BP and heart rate remains stable. Blood work, and imaging reviewed Patient states that she is feeling better, denies dyspnea and chest pain 1. Acute Resp Insufficiency -likely 2/2 to RUL Pneumonia, with COPD vs ?TB vs questionable underlying malignancy? -currently on high flow, will wean off as tolerated -Pulmonary and ID on consult -CT chest with emphysema, RUL pneumonia with questionable cavitations? -Pulmonary: bronchoscopy if dyspnea persists -c/w Levofloxacin and Vancomycin -Per pulmo and ID patient on TB meds given high suspicion -pending quant TB and AFB x 3 -on steroids consider weaning off tomorrow 2. Leukopenia -likely 2/2 to infection load -proclacitonin elevated at 7.76 -sputum cx normal kenyetta -Bcx no growth 24 hrs -on abx and OV fluids 3. Anemia, acute vs chronic -stable h/h -no acute source of bleeding -follow up and replace as needed 4. CAD -hx of [place] 5 yrs ago -c/w asa and statin 5. hx of anxiety -Xanax at home -continue xanax HS 6. DVT -Lovenox SC CCU Objective - Vital Signs / Intake & Output Vital Signs (Last 4 hours): Vital Signs Temp Pulse Resp BP Pulse Ox 02/27/19 11:31 20 02/27/19 10:00 113 H 17 89/61 L 100 02/27/19 08:00 98.3 F 107 H 28 H 86/59 L 100 Intake and Output (Last 8hrs): Intake & Output 02/26/19 02/27/19 02/27/19 22:59 06:59 14:59 Intake Total 1695 1220 700 Output Total 900 400 200 Balance 795 820 500 Weight 44.633 kg Intake: IV 975 900 450 Intake, Piggyback 350 200 250 Oral 370 120 Output: Urine 900 400 200 Urine, Voided 900 400 200 Other: # Voids Urine, Voided 1 - Physical Exam Head: Positive for: Atraumatic Mouth: Positive for: Moist Mucous Membranes Nose (External): Positive for: Atraumatic, Other (On High flow FIO2 100) Respiratory/Chest: Positive for: Good Air Exchange, Rhonchi, Other (crackles in the R side more in the upper area but noted throughout ) Cardiovascular: Positive for: Regular Rate and Rhythm, Normal S1, S2 Abdomen: Positive for: Normal Bowel Sounds. Negative for: Tenderness, Distention Upper Extremity: Positive for: Normal Inspection Lower Extremity: Positive for: Normal Inspection - Medications Active Medications: Active Medications Generic Name Dose Route Start Last Admin Trade Name Freq PRN Reason Stop Dose Admin Acetaminophen 650 mg 02/26/19 07:00 Tylenol 325mg Tab PO Q4 PRN Fever >100.4 F Albuterol/Ipratropium 3 ml 02/26/19 08:00 02/27/19 11:30 Duoneb 3 Mg/0.5 Mg (3 Ml) Ud INH 3 ml RQ4 DANY Administration Enoxaparin Sodium 40 mg 02/26/19 12:45 02/27/19 09:03 Lovenox SC 40 mg DAILY DANY Administration Protocol Ethambutol HCl 800 mg 02/27/19 09:00 02/27/19 09:04 Myambutol PO 800 mg DAILY DANY Administration Protocol Aztreonam 1 gm/ Sodium 100 mls @ 100 mls/hr 02/26/19 07:00 02/27/19 06:23 Chloride IVPB 100 mls/hr Q8H DANY Administration Protocol Vancomycin HCl 1 gm/ Sodium 250 mls @ 166.667 mls/hr 02/26/19 09:00 02/27/19 09:05 Chloride IVPB 166.667 mls/hr Q12 DANY Administration Protocol Levofloxacin/Dextrose 750 mg in 150 mls @ 100 mls/hr 02/27/19 01:00 02/27/19 00:42 Levaquin 750mg IVPB 100 mls/hr DAILY@0100 DANY Administration Protocol Lactated Ringer's 1,000 mls @ 150 mls/hr 02/26/19 09:30 02/27/19 04:58 Lactated Ringer's IV 150 mls/hr .Q6H40M DANY Administration Isoniazid 300 mg 02/27/19 09:00 02/27/19 09:03 Niazid PO 300 mg DAILY DANY Administration Protocol Ketorolac Tromethamine 15 mg 04/25/19 06:48 Toradol IVP Q6 PRN Pain, moderate (4-7) Ketorolac Tromethamine 30 mg 02/26/19 06:49 Toradol IVP Q6 PRN Pain, severe (8-10) Methylprednisolone 40 mg 02/26/19 07:00 02/27/19 06:27 Solu-Medrol IVP 40 mg Q8H DANY Administration Ondansetron HCl 4 mg 02/26/19 07:01 Zofran Inj IVP Q4 PRN Nausea/Vomiting Pyrazinamide 1,000 mg 02/27/19 09:00 02/27/19 09:03 Pyrazinamide PO 1,000 mg DAILY DANY Administration Protocol Rifampin 600 mg 02/27/19 09:00 02/27/19 09:04 Rifampin Cap PO 600 mg DAILY DANY Administration Protocol - Patient Studies Lab Studies: Microbiology Studies 02/26/19 06:00 Gram Stain - Preliminary Sputum Sputum Culture - Preliminary NORMAL ORAL KENYETTA 02/26/19 06:00 MRSA Culture (Admit) - Final Naris MRSA NOT DETECTED 02/25/19 00:50 Blood Culture - Preliminary Blood-Venous NO GROWTH AFTER 24 HOURS 02/25/19 23:40 Blood Culture - Preliminary Blood-Venous NO GROWTH AFTER 24 HOURS Lab Studies 02/27/19 02/27/19 02/26/19 Range/Units 04:05 04:05 20:30 WBC 3.4 L D (4.8-10.8) K/uL RBC 3.25 L (3.80-5.20) Mil/uL Hgb 9.8 L (12.0-16.0) g/dL Hct 28.8 L (34.0-47.0) % MCV 88.5 (81.0-99.0) fl MCH 30.1 (27.0-31.0) pg MCHC 34.0 (33.0-37.0) g/dL RDW 14.0 (11.5-14.5) % Plt Count 254 (130-400) K/uL MPV 7.7 (7.2-11.7) fl Neut % (Auto) 93.4 H (50.0-75.0) % Lymph % (Auto) 5.3 L (20.0-40.0) % [place] % (Auto) 1.1 (0.0-10.0) % Eos % (Auto) 0.1 (0.0-4.0) % Baso % (Auto) 0.1 (0.0-2.0) % Neut # (Auto) 3.1 (1.8-7.0) K/uL Lymph # (Auto) 0.2 L (1.0-4.3) K/uL [place] # (Auto) 0.0 (0.0-0.8) K/uL Eos # (Auto) 0.0 (0.0-0.7) K/uL Baso # (Auto) 0.0 (0.0-0.2) K/uL Neutrophils % (Manual) 89 H (42-75) % Band Neutrophils % 3 H (0-2) % Lymphocytes % (Manual) 5 L (20-50) % Monocytes % (Manual) 3 (0-10) % Platelet Estimate Normal (NORMAL) Large Platelets Present Hypochromasia (manual) Slight Sodium 141 (132-148) mmol/l Potassium 3.7 (3.6-5.0) MMOL/L Chloride 112 H (98-107) mmol/L Carbon Dioxide 22 (22-30) mmol/L Anion Gap 11 (10-20) BUN 15 (7-17) mg/dl Creatinine 0.4 L (0.7-1.2) mg/dl Est GFR ( Amer) > 60 Est GFR (Non-Af Amer) > 60 Random Glucose 129 H (65-105) mg/dL Calcium 8.6 (8.4-10.2) mg/dL Total Bilirubin 0.5 (0.2-1.3) mg/dl AST 29 (14-36) U/L ALT 39 (9-52) U/L Alkaline Phosphatase 66 (38-126) U/L Total Protein 5.0 L (6.3-8.2) G/DL Albumin 2.4 L (3.5-5.0) g/dL Globulin 2.6 (2.2-3.9) gm/dL Albumin/Globulin Ratio 0.9 L (1.0-2.1) Procalcitonin (0.19-0.49) NG/ML HIV-1 Ab Rapid Screen Non reactive (NON REAC) 02/26/19 Range/Units 07:39 WBC (4.8-10.8) K/uL RBC (3.80-5.20) Mil/uL Hgb (12.0-16.0) g/dL Hct (34.0-47.0) % MCV (81.0-99.0) fl MCH (27.0-31.0) pg MCHC (33.0-37.0) g/dL RDW (11.5-14.5) % Plt Count (130-400) K/uL MPV (7.2-11.7) fl Neut % (Auto) (50.0-75.0) % Lymph % (Auto) (20.0-40.0) % [place] % (Auto) (0.0-10.0) % Eos % (Auto) (0.0-4.0) % Baso % (Auto) (0.0-2.0) % Neut # (Auto) (1.8-7.0) K/uL Lymph # (Auto) (1.0-4.3) K/uL [place] # (Auto) (0.0-0.8) K/uL Eos # (Auto) (0.0-0.7) K/uL Baso # (Auto) (0.0-0.2) K/uL Neutrophils % (Manual) (42-75) % Band Neutrophils % (0-2) % Lymphocytes % (Manual) (20-50) % Monocytes % (Manual) (0-10) % Platelet Estimate (NORMAL) Large Platelets Hypochromasia (manual) Sodium (132-148) mmol/l Potassium (3.6-5.0) MMOL/L Chloride (98-107) mmol/L Carbon Dioxide (22-30) mmol/L Anion Gap (10-20) BUN (7-17) mg/dl Creatinine (0.7-1.2) mg/dl Est GFR ( Amer) Est GFR (Non-Af Amer) Random Glucose (65-105) mg/dL Calcium (8.4-10.2) mg/dL Total Bilirubin (0.2-1.3) mg/dl AST (14-36) U/L ALT (9-52) U/L Alkaline Phosphatase (38-126) U/L Total Protein (6.3-8.2) G/DL Albumin (3.5-5.0) g/dL Globulin (2.2-3.9) gm/dL Albumin/Globulin Ratio (1.0-2.1) Procalcitonin 7.76 H (0.19-0.49) NG/ML HIV-1 Ab Rapid Screen (NON REAC) Laboratory Results - last 24 hr 02/26/19 02/26/19 02/27/19 07:39 20:30 04:05 WBC 3.4 L D RBC 3.25 L Hgb 9.8 L Hct 28.8 L MCV 88.5 MCH 30.1 MCHC 34.0 RDW 14.0 Plt Count 254 MPV 7.7 Neut % (Auto) 93.4 H Lymph % (Auto) 5.3 L [place] % (Auto) 1.1 Eos % (Auto) 0.1 Baso % (Auto) 0.1 Neut # (Auto) 3.1 Lymph # (Auto) 0.2 L [place] # (Auto) 0.0 Eos # (Auto) 0.0 Baso # (Auto) 0.0 Neutrophils % (Manual) 89 H Band Neutrophils % 3 H Lymphocytes % (Manual) 5 L Monocytes % (Manual) 3 Platelet Estimate Normal Large Platelets Present Hypochromasia (manual) Slight Sodium Potassium Chloride Carbon Dioxide Anion Gap BUN Creatinine Est GFR ( Amer) Est GFR (Non-Af Amer) Random Glucose Calcium Total Bilirubin AST ALT Alkaline Phosphatase Total Protein Albumin Globulin Albumin/Globulin Ratio Procalcitonin 7.76 H HIV-1 Ab Rapid Screen Non reactive 02/27/19 04:05 WBC RBC Hgb Hct MCV MCH MCHC RDW Plt Count MPV Neut % (Auto) Lymph % (Auto) [place] % (Auto) Eos % (Auto) Baso % (Auto) Neut # (Auto) Lymph # (Auto) [place] # (Auto) Eos # (Auto) Baso # (Auto) Neutrophils % (Manual) Band Neutrophils % Lymphocytes % (Manual) Monocytes % (Manual) Platelet Estimate Large Platelets Hypochromasia (manual) Sodium 141 Potassium 3.7 Chloride 112 H Carbon Dioxide 22 Anion Gap 11 BUN 15 Creatinine 0.4 L Est GFR ( Amer) > 60 Est GFR (Non-Af Amer) > 60 Random Glucose 129 H Calcium 8.6 Total Bilirubin 0.5 AST 29 ALT 39 Alkaline Phosphatase 66 Total Protein 5.0 L Albumin 2.4 L Globulin 2.6 Albumin/Globulin Ratio 0.9 L Procalcitonin HIV-1 Ab Rapid Screen Radiology Impressions: Radiology Impressions Chest X-Ray 02/25/19 22:03 IMPRESSION: Dense consolidation of the right upper lobe consistent with pneumonia Chest CT 02/25/19 23:44 IMPRESSION: Extensive right upper lobe pneumonia with mild mediastinal and potential right hilar lymphadenopathy. Lack images contrast limits evaluation of the mediastinum. Prominent emphysema/COPD. Multiple hepatic lucencies are identified with many too small to characterize. Based on Hounsfield unit analysis as well as statistics, these are likely cysts with few at the visualized kidneys as well. Consider follow-up ultrasound for added characterization. Discordant with [facility] preliminary report 02/26/2019, 1:25 a.m. in terms of hepatic and renal lucencies. Findings discussed with ICU nurse Juliette with written down and read back verification, 03/28/2019 1:30 p.m.. Critical Care Progress Note - Nutrition Nutrition: Nutrition Category Date Time Status Liquid Diet [DIET] Diets 02/26/19 Breakfast Active <Scott Dillard - Last Filed: 02/27/19 16:07> Assessment/Plan - Assessment and Plan (Free Text) Assessment: Attestation: Patient seen and examined at the bedside with Resident Dr. Shira Ruggiero; and I agree with her outline of plans and management documented above as discussed on AM rounds; reflecting my review of all applicable clinical data, and participation in the care of the patient throughout the day in ICU; today, February 27, 2019.
--- NOTE | 2019-02-27 15:46 | PN ---
DATE: 02/27/2019 SUBJECTIVE: The patient is seen today, 02/27/2019. She is feeling overall better and less short of breath and less cough. PHYSICAL EXAMINATION: VITAL SIGNS: Blood pressure 99/62, temperature 98.2, respiratory rate 26, and pulse 110. HEENT: Pupils equal, reactive to light. Normal-appearing mucosa of the conjunctivae, oropharynx and nasal membrane mucosa. NECK: Supple. No JVD. No carotid bruit. No lymph node. No thyromegaly. CHEST AND LUNGS: Bilateral symmetrical expansion. Decreased air entry in both lower lung boone. CARDIOVASCULAR SYSTEM: PMI not localized. S1 and S2. No additional sounds. ABDOMEN: Normoactive bowel sounds. No tenderness. No organomegaly. No masses. EXTREMITIES: No cyanosis. No clubbing. No edema. BACK TACKER: Alert, awake, oriented x2. No neurological deficit could be appreciated. ASSESSMENT: Pneumonia, hypoxic respiratory failure, history of coronary artery disease. 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 We will advance diet. Monitor the patient in intensive care unit. Follow recommendations of consultants. Rekha Bedoya MD
[2019-02-28] MEDS: levoFLOXacin 750 mg in D5W 750 MG/150 ML BAG IVPB SCH
[2019-02-28] MEDS: Lactated Ringer's 1,000 ML IV SCH ×3 (01:30→17:17)
[2019-02-28] MEDS ORDERED: Sodium Chloride 0.9% 1,000 ML IV SCH (03:15)
[2019-02-28] MEDS: Albuterol-Ipratrop 3 mg / 0.5 (3 ml) UD INH SCH ×5 (04:36→23:32)
[2019-02-28 05:23] LABS: BASO % 0.1 % (0.0-2.0); HEMOGLOBIN 8.9 g/dL (12.0-16.0); LYMPH # 0.2 K/uL (1.0-4.3); LYMPH % 4.6 % (20.0-40.0); MEAN CELL VOLUME 86.6 fl (81.0-99.0); MEAN CORPUSCULAR HEMOGLOBIN 29.6 pg (27.0-31.0); MEAN CORPUSCULAR HGB CONC 34.1 g/dL (33.0-37.0); MEAN PLATELET VOLUME 8.1 fl (7.2-11.7); MONO # 0.1 K/uL (0.0-0.8); NEUT # 4.5 K/uL (1.8-7.0); NEUT % 93.3 % (50.0-75.0); NRBC % 0.1 % (0.0-0.0); PLATELET COUNT 246 K/uL (130-400); RBC 3.02 Mil/uL (3.80-5.20); WHITE BLOOD COUNT 4.8 K/uL (4.8-10.8)
[2019-02-28 05:32] LABS: BLOOD UREA NITROGEN 23 mg/dl (7-17); CALCIUM 8.1 mg/dL (8.4-10.2); GFR NON-AFRICAN AMERICAN > 60
[2019-02-28] MEDS ORDERED: Potassium Chloride 20 mEq/15 ml LIQ UD PO ONE (06:07)
[2019-02-28] MEDS: Aztreonam 1 GM in Sodium Chloride 0.9% 100 ML IVPB SCH ×3 (06:30→22:24)
[2019-02-28] MEDS: MethylPREDNISolone 40 mg Vial IVP SCH ×3 (06:32→22:27)
[2019-02-28] MEDS: Enoxaparin 40 mg Syringe SC SCH (08:08)
[2019-02-28 08:32] LABS: BANDS 3 % (0-2); LYMPHOCYTE 5 % (20-50); MONOCYTE 1 % (0-10); NEUTROPHIL 91 % (42-75); TOTAL CELLS COUNTED 100
[2019-02-28 08:33] LABS: ANISOCYTOSIS SLIGHT; PLATELET ESTIMATE NORMAL (NORMAL)
[2019-02-28 08:34] LABS: POIKILOCYTOSIS SLIGHT
--- NOTE | 2019-02-28 10:38 | CP.PCM.PN ---
Subjective - Date & Time of Evaluation Date of Evaluation: 02/28/19 Time of Evaluation: 10:42 - Subjective Subjective: SOB IMPROVING AFEBRILE BP STILL LOW COUGH LESS NO CHEST PAINS Objective - Vital Signs/Intake and Output Vital Signs (last 24 hours): Temp Pulse Resp BP Pulse Ox 97.4 F L 106 H 21 88/58 L 96 02/28/19 08:00 02/28/19 10:00 02/28/19 10:00 02/28/19 10:00 02/28/19 10:00 Intake and Output: 02/28/19 02/28/19 06:59 18:59 Intake Total 3000 670 Output Total 300 250 Balance 2700 420 - Medications Medications: Current Medications Acetaminophen (Tylenol 325mg Tab) 650 mg PO Q4 PRN PRN Reason: Fever >100.4 F Albuterol/Ipratropium (Duoneb 3 Mg/0.5 Mg (3 Ml) Ud) 3 ml INH RQ4 DANY Last Admin: 02/28/19 08:23 Dose: 3 ml Alprazolam (Xanax) 1 mg PO HS [facility] Last Admin: 02/27/19 21:22 Dose: 1 mg Aspirin (Ecotrin) 81 mg PO DAILY DANY Last Admin: 02/28/19 08:08 Dose: 81 mg Atorvastatin Calcium (Lipitor) 10 mg PO HS [facility] Last Admin: 02/27/19 21:13 Dose: 10 mg Enoxaparin Sodium (Lovenox) 40 mg SC DAILY DANY; Protocol Last Admin: 02/28/19 08:08 Dose: 40 mg Ethambutol HCl (Myambutol) 800 mg PO DAILY [facility]; Protocol Last Admin: 02/28/19 08:09 Dose: 800 mg Aztreonam 1 gm/ Sodium (Chloride) 100 mls @ 100 mls/hr IVPB Q8H DANY; Protocol Last Admin: 02/28/19 06:30 Dose: 100 mls/hr Vancomycin HCl 1 gm/ Sodium (Chloride) 250 mls @ 166.667 mls/hr IVPB Q12 DANY; Protocol Last Admin: 02/27/19 21:15 Dose: 166.667 mls/hr Levofloxacin/Dextrose (Levaquin 750mg) 750 mg in 150 mls @ 100 mls/hr IVPB DAILY@0100 DANY; Protocol Last Admin: 02/28/19 00:00 Dose: 100 mls/hr Lactated Ringer's (Lactated Ringer's) 1,000 mls @ 150 mls/hr IV .Q6H40M DANY Last Admin: 02/28/19 08:08 Dose: 150 mls/hr Sodium Chloride (Sodium Chloride 0.9%) 1,000 mls @ 1,000 mls/hr IV .Q1H DANY Stop: 03/01/19 03:14 Last Admin: 02/28/19 03:24 Dose: 1,000 mls/hr Isoniazid (Niazid) 300 mg PO DAILY DANY; Protocol Last Admin: 02/28/19 08:09 Dose: 300 mg Ketorolac Tromethamine (Toradol) 15 mg IVP Q6 PRN PRN Reason: Pain, moderate (4-7) Ketorolac Tromethamine (Toradol) 30 mg IVP Q6 PRN PRN Reason: Pain, severe (8-10) Methylprednisolone (Solu-Medrol) 40 mg IVP Q8H [facility] Last Admin: 02/28/19 06:32 Dose: 40 mg Ondansetron HCl (Zofran Inj) 4 mg IVP Q4 PRN PRN Reason: Nausea/Vomiting Pyrazinamide (Pyrazinamide) 1,000 mg PO DAILY [facility]; Protocol Last Admin: 02/28/19 08:09 Dose: 1,000 mg Rifampin (Rifampin Cap) 600 mg PO DAILY DANY; Protocol Last Admin: 02/28/19 08:10 Dose: 600 mg - Labs Labs: 02/28/19 04:12 02/28/19 04:12 PT 18.1 Seconds (9.8-13.1) H 02/25/19 22:51 INR 1.6 02/25/19 22:51 APTT 36.6 Seconds (25.6-37.1) 02/25/19 22:51 - Constitutional Appears: Chronically Ill - Head Exam Head Exam: ATRAUMATIC, NORMAL INSPECTION, NORMOCEPHALIC - Eye Exam Eye Exam: EOMI, Normal appearance, PERRL Pupil Exam: NORMAL ACCOMODATION, PERRL - ENT Exam ENT Exam: Mucous Membranes Moist, Normal Exam - Neck Exam Neck Exam: Full ROM, Normal Inspection. absent: Lymphadenopathy - Respiratory Exam Respiratory Exam: Decreased Breath Sounds, Prolonged Expiratory Phase, Rales Additional comments: ON HIGH FLOW O2 - Cardiovascular Exam Cardiovascular Exam: REGULAR RHYTHM, +S1, +S2. absent: Murmur - GI/Abdominal Exam GI & Abdominal Exam: Soft, Normal Bowel Sounds. absent: Tenderness - Rectal Exam Rectal Exam: NORMAL INSPECTION - Extremities Exam Extremities Exam: Full ROM, Normal Capillary Refill, Normal Inspection. absent: Joint Swelling - Back Exam Back Exam: NORMAL INSPECTION - Neurological Exam Neurological Exam: Alert, Awake, CN II-XII Intact, Normal Gait, Oriented x3 - Psychiatric Exam Psychiatric exam: Normal Affect, Normal Mood - Skin Skin Exam: Dry, Intact, Normal Color, Warm Assessment and Plan - Assessment and Plan (Free Text) Assessment: ACUTE RESPIRATORY FAILURE--NECROTIZING PNEUMONIA R/O TB/MALIGNANCY COPD EXAC ASHD Plan: CONTINUE CURRENT RX WILL PROBABLY NEED BRONCHOSCOPY WITH BX IF CXR DOES NOT SHOW IMPROVEMENT SPUTUM FOR AFB X 3 NEGATIVE--MORE STUDIES ORDERED CASE EXPLAINED TO PT AND SHE UNDERSTANDS PLANS
--- NOTE | 2019-02-28 14:40 | PN ---
DATE: 02/28/2019 SUBJECTIVE: The patient is seen today 02/28/2019. She is generally feeling less short of breath and less cough. PHYSICAL EXAMINATION: VITAL SIGNS: Blood pressure 96/63, temperature 97.5, respiratory rate 27, and pulse 106. HEENT: Pupils equal and reactive to light. Normal-appearing mucosa of the conjunctivae, oropharyngeal and nasal membrane mucosa. NECK: Supple. No JVD. No carotid bruits. No lymph node. No thyromegaly. CHEST AND LUNGS: Bilateral symmetrical expansion. Good air exchange and no rales, no rhonchi. CARDIOVASCULAR: PMI not localized. S1, S2. No additional sounds. ABDOMEN: Normoactive bowel sounds. No tenderness. No organomegaly. No masses. EXTREMITIES: No cyanosis, no clubbing, no edema. CENTRAL NERVOUS SYSTEM: Alert, awake, oriented x3. No neurological deficit could be appreciated. ASSESSMENT: 1. Pneumonia. 2. Anemia of multifactorial. 3. Hypokalemia. PLAN: Supplement potassium. Anemia workup. Follow recommendations of ID and then restaurant hourly team member and continue current IV antibiotics. Rekha Bedoya MD
--- NOTE | 2019-02-28 17:03 | RAD ---
Date of service: 02/28/2019 HISTORY: PNEUMONIA COMPARISON: Comparison chest and CT scan chest both dated 02/25/2019. TECHNIQUE: 1 view obtained. FINDINGS: LUNGS: Interval progression of right upper lobe infiltrate with new areas of atelectasis and/or infiltrate in the right mid and lower lung field.. Suspect small right-sided effusion. Mild left basilar atelectasis with and or infiltrate with small left effusion. PLEURA: As above. No pneumothorax apparent. CARDIOVASCULAR: No aortic atherosclerotic calcification present. Normal cardiac size. No pulmonary vascular congestion. OSSEOUS STRUCTURES: No significant abnormalities. VISUALIZED UPPER ABDOMEN: Normal. OTHER FINDINGS: None. IMPRESSION: Interval progression of right upper lobe infiltrate with new areas of atelectasis and/or infiltrate in the right mid and lower lung field. Suspect small right-sided effusion. Mild left basilar atelectasis with and or infiltrate with small left effusion
[2019-02-28] MEDS ORDERED: Lactated Ringer's 1,000 ML IV SCH (21:02)
--- NOTE | 2019-02-28 23:37 | PN ---
DATE: 02/28/2019 LOCATION: The patient in ICU, bed 433. TIME SPENT: 35 minutes. The patient is seen and evaluated at the bedside. Past medical, surgical, family and social history reviewed. A 63-year-old female, reformed smoker with history significant for chronic obstructive pulmonary disease/emphysema, coronary artery disease, status post stent placement, admitted with 2 to 3 weeks of cough with expectoration of brownish sputum. Overnight being treated for community-acquired pneumonia versus pulmonary tuberculosis, remains afebrile, normotensive, saturation over 94%. PHYSICAL EXAMINATION: GENERAL: This morning, alert, awake, follows commands appropriate. VITAL SIGNS: Temperature 97.4, heart rate of 101 to 106 regular, blood pressure 164/92 to 88/58 with a mean arterial pressure of 68, respiratory rate 18 to 21 thoracoabdominal, saturation 96% on high-flow nasal oxygen, flow rate 30 liters, FIO2 90%. Intake 4450, output 600, positive balance 3850. Weight 98 pounds. HEAD, EYES, EARS, NOSE AND THROAT: Pupils are reactive. Conjunctivae pink. Sclerae are white. NECK: Supple. Trachea mild shifting to the right. CHEST: Diminished breath sounds on the right infraclavicular area. HEART: Rhythm regular. S1, S2 normal. No audible murmur. ABDOMEN: Bowel sounds present. Liver and spleen not palpable. Bladder not distended. EXTREMITIES: No clubbing, cyanosis or edema. NEUROLOGIC: Nonfocal. CURRENT MEDICATIONS: Tylenol 650 every 4 hours p.r.n. albuterol/Atrovent inhalation 3 mL every 4 hours, Xanax 1 mg h.s., Ecotrin 81 mg daily, Lipitor 10 mg daily, aztreonam 1 g IV every 8 hours, isoniazid 300 mg daily, 800 mg daily, Toradol 50 mg IV every 6 hours p.r.n. for pain, Lovenox 40 mg subcu daily, Ringer's lactate at 150 mL per hour, levofloxacin 750 mg IV daily, Solu-Medrol 40 mg IV every 8 hours, Zofran 4 mL IV every 4 hours p.r.n. for nausea, pyrazinamide 1000 mg p.o. daily, rifampin 600 mg p.o. daily, vancomycin 1 g IV every 12 hours. LABORATORY DATA: WBC 4.8, hemoglobin 8.9, hematocrit 26.2, platelet count 246, neutrophils 93.3, lymphocytes 4.6. ESR 113. PT 18.1, INR 1.6, D-dimer of 1023. ABG, pH 7.33, pCO2 of 36, pO2 of 98, saturation 99.3 on FIO2 of 60%. SMA-7: Sodium 143, potassium 3.2, chloride 114, CO2 of 25, blood urea nitrogen 23, creatinine 0.4, random glucose 99, calcium 8.1. Alcohol level less than 10. Serology, HIV nonreactive, influenza A and B negative. Microbiology, sputum AFB negative x3. Sputum culture normal kenyetta. Nasal smear MRSA negative. Blood culture no growth reported. Chest x-ray done this morning shows haziness involving right upper lobe with a mild shift of the trachea to the right. CT chest done on 02/25/2019 shows dense opacification of the right upper lobe likely on the basis of pneumonia. No definite luminal or constricting mass appreciable related to the central right airway. No definitive mass appreciated and well aerated remaining lungs at the right and the entire left lung, mediastinum appears unremarkable. No pleural effusion, pneumothorax, multiple small lucencies scattered at the left greater than the right lobe liver, left renal cyst. IMPRESSION: 1. Neurologic: Alert and awake. Follows commands appropriate. 2. Pulmonary: Hypoxic respiratory insufficiency, chronic obstructive pulmonary disease/emphysema, on bronchodilator, systemic steroid. 3. Cardiac: History of coronary artery disease, status post stent, on aspirin. Continue Lovenox. 4. Hematology: Leukopenia improved on steroid. Hemoglobin and hematocrit remains stable. Right upper lobe density. The patient with chronic obstructive pulmonary disease/emphysema. Consider superimposed malignancy. 5. Infection: Right upper lobar density secondary to community-acquired pneumonia versus obstructive pneumonia, on vancomycin and levofloxacin. Maintain trough level less than 15, empirically on anti-TB medications with INH, rifampicin, and ethambutol. Sputum AFB negative. Discussed with Pulmonary, possible bronchoscopy next week. 6. Renal: Electrolyte imbalance, hypokalemia being supplemented. 7. Gastrointestinal: Normal liver enzymes. 8. Endocrinology: No history of thyroid disease and/or diabetes mellitus type 2. 9. Keep head of bed 30 degrees up, avoid aspiration, monitor for hemoptysis. Continue diet as tolerated. Moses Herrera MD
[2019-03-01] MEDS: levoFLOXacin 750 mg in D5W 750 MG/150 ML BAG IVPB SCH (02:00)
[2019-03-01] MEDS: Albuterol-Ipratrop 3 mg / 0.5 (3 ml) UD INH SCH ×5 (04:59→19:42)
[2019-03-01 05:20] LABS: HEMOGLOBIN 10.5 g/dL (12.0-16.0); MEAN CELL VOLUME 87.1 fl (81.0-99.0); MEAN CORPUSCULAR HEMOGLOBIN 29.6 pg (27.0-31.0); RBC 3.54 Mil/uL (3.80-5.20); RED CELL DISTRIBUTION WIDTH 14.9 % (11.5-14.5); WHITE BLOOD COUNT 11.9 K/uL (4.8-10.8)
[2019-03-01 05:23] LABS: BLOOD UREA NITROGEN 19 mg/dl (7-17); GFR NON-AFRICAN AMERICAN > 60
[2019-03-01] MEDS: Aztreonam 1 GM in Sodium Chloride 0.9% 100 ML IVPB SCH ×3 (09:29→22:14)
[2019-03-01] MEDS: Enoxaparin 40 mg Syringe SC SCH (09:30)
[2019-03-01] MEDS: MethylPREDNISolone 40 mg Vial IVP SCH ×3 (09:31→22:15)
--- NOTE | 2019-03-01 10:18 | RAD ---
Date of service: 03/01/2019 HISTORY: Re-evaluation COMPARISON: Comparison chest 02/28/2019. TECHNIQUE: 1 view obtained. FINDINGS: LUNGS: Redemonstrated is a relatively dense opacification right upper lung field with slight improvement in aeration. Patchy infiltrates seen in the right mid to lower lung field with atelectasis and/or infiltrate left lower lobe. The interstitial markings are also increased and coarsened throughout the left lung as well as right lower lung field PLEURA: As above. No pneumothorax apparent. CARDIOVASCULAR: No aortic atherosclerotic calcification present. Heart size unchanged OSSEOUS STRUCTURES: No significant abnormalities. VISUALIZED UPPER ABDOMEN: Normal. OTHER FINDINGS: None. IMPRESSION: Redemonstrated is a relatively dense opacification right upper lung field with slight improvement in aeration. Patchy infiltrates seen in the right mid to lower lung field with atelectasis and/or infiltrate left lower lobe. The interstitial markings are also increased and coarsened throughout the left lung as well as right lower lung field
--- NOTE | 2019-03-01 10:26 | CP.PCM.PN ---
Subjective - Date & Time of Evaluation Date of Evaluation: 03/01/19 Time of Evaluation: 10:29 - Subjective Subjective: CLINICALLY IMPROVING SOB IMPROVING O2 SAT-92% CXR CONTINUES TO SHOW PNEUMONIA WITH OPACIFICATION RUL PT ADVISED BRONCHOSCOPIC EVALUATION OF AIRWAYS BUT DECLINED Objective - Vital Signs/Intake and Output Vital Signs (last 24 hours): Temp Pulse Resp BP Pulse Ox 98.2 F 100 H 18 118/80 96 03/01/19 08:00 03/01/19 08:00 03/01/19 09:43 03/01/19 08:00 03/01/19 08:00 Intake and Output: 03/01/19 03/01/19 06:59 18:59 Intake Total 1550 100 Output Total 800 Balance 750 100 - Medications Medications: Current Medications Acetaminophen (Tylenol 325mg Tab) 650 mg PO Q4 PRN PRN Reason: Fever >100.4 F Albuterol/Ipratropium (Duoneb 3 Mg/0.5 Mg (3 Ml) Ud) 3 ml INH RQ4 [facility] Last Admin: 03/01/19 08:12 Dose: 3 ml Alprazolam (Xanax) 1 mg PO HS [facility] Last Admin: 02/28/19 22:23 Dose: 1 mg Aspirin (Ecotrin) 81 mg PO DAILY [facility] Last Admin: 03/01/19 09:30 Dose: 81 mg Atorvastatin Calcium (Lipitor) 10 mg PO HS [facility] Last Admin: 02/28/19 22:23 Dose: 10 mg Enoxaparin Sodium (Lovenox) 40 mg SC DAILY [facility]; Protocol Last Admin: 03/01/19 09:30 Dose: 40 mg Ethambutol HCl (Myambutol) 800 mg PO DAILY [facility]; Protocol Last Admin: 03/01/19 09:31 Dose: 800 mg Aztreonam 1 gm/ Sodium (Chloride) 100 mls @ 100 mls/hr IVPB Q8H [facility]; Protocol Last Admin: 03/01/19 09:29 Dose: 100 mls/hr Vancomycin HCl 1 gm/ Sodium (Chloride) 250 mls @ 166.667 mls/hr IVPB Q12 [facility]; Protocol Last Admin: 03/01/19 09:32 Dose: 166.667 mls/hr Levofloxacin/Dextrose (Levaquin 750mg) 750 mg in 150 mls @ 100 mls/hr IVPB DAILY@0100 [facility]; Protocol Last Admin: 03/01/19 02:00 Dose: 100 mls/hr Lactated Ringer's (Lactated Ringer's) 1,000 mls @ 100 mls/hr IV .Q10H [facility] Last Admin: 02/28/19 21:30 Dose: 100 mls/hr Isoniazid (Niazid) 300 mg PO DAILY [facility]; Protocol Last Admin: 03/01/19 09:31 Dose: 300 mg Ketorolac Tromethamine (Toradol) 15 mg IVP Q6 PRN PRN Reason: Pain, moderate (4-7) Ketorolac Tromethamine (Toradol) 30 mg IVP Q6 PRN PRN Reason: Pain, severe (8-10) Methylprednisolone (Solu-Medrol) 40 mg IVP Q8H [facility] Last Admin: 03/01/19 09:31 Dose: 40 mg Ondansetron HCl (Zofran Inj) 4 mg IVP Q4 PRN PRN Reason: Nausea/Vomiting Pyrazinamide (Pyrazinamide) 1,000 mg PO DAILY [facility]; Protocol Last Admin: 03/01/19 09:31 Dose: 1,000 mg Rifampin (Rifampin Cap) 600 mg PO DAILY [facility]; Protocol Last Admin: 03/01/19 09:31 Dose: 600 mg - Labs Labs: 03/01/19 04:45 03/01/19 04:45 PT 18.1 Seconds (9.8-13.1) H 02/25/19 22:51 INR 1.6 02/25/19 22:51 APTT 36.6 Seconds (25.6-37.1) 02/25/19 22:51 - Constitutional Appears: Chronically Ill - Head Exam Head Exam: ATRAUMATIC, NORMAL INSPECTION, NORMOCEPHALIC - Eye Exam Eye Exam: EOMI, Normal appearance, PERRL Pupil Exam: NORMAL ACCOMODATION, PERRL - ENT Exam ENT Exam: Mucous Membranes Moist, Normal Exam - Neck Exam Neck Exam: Full ROM, Normal Inspection. absent: Lymphadenopathy - Respiratory Exam Respiratory Exam: Decreased Breath Sounds, Prolonged Expiratory Phase, Rales Additional comments: ON HIGH FLOW O2 - Cardiovascular Exam Cardiovascular Exam: REGULAR RHYTHM, +S1, +S2. absent: Murmur - GI/Abdominal Exam GI & Abdominal Exam: Soft, Normal Bowel Sounds. absent: Tenderness - Rectal Exam Rectal Exam: NORMAL INSPECTION - Extremities Exam Extremities Exam: Full ROM, Normal Capillary Refill, Normal Inspection. absent: Joint Swelling, Pedal Edema - Back Exam Back Exam: NORMAL INSPECTION - Neurological Exam Neurological Exam: Alert, Awake, CN II-XII Intact, Normal Gait, Oriented x3 - Psychiatric Exam Psychiatric exam: Normal Affect, Normal Mood - Skin Skin Exam: Dry, Intact, Normal Color, Warm Assessment and Plan - Assessment and Plan (Free Text) Assessment: ACUTE RESP FAILURE NECROTIZING PNEUMONIA R LUNG ?MALIGNANCY/TB COPD EXAC[BULLOUS DZ] Plan: CONTINUE CURRENT ANTIBIOTIC AND O2 RX WILL CONTINUE TO FOLLOW WITH SERIAL CXRS TO EVALUATE PROGRESS OF PNEUMONIA
[2019-03-01] MEDS: Potassium Chloride 20 mEq ER Tab PO SCH (12:20)
--- NOTE | 2019-03-01 17:23 | CP.PCM.PN ---
Subjective - Date & Time of Evaluation Date of Evaluation: 03/01/19 Time of Evaluation: 17:19 - Subjective Subjective: I D NOTE ON ANTI TB RX AGREE c PULMONARY THAT PATIENT SHOULD HAVE BRONCHOSCOPY CXR REVIEWED AWAIT QUANTIFERON GOLD RESULTS ORDERED ON02/26/19 WILL REORDER ALSO HAVE DISCONTINUED VANCOMYCIN STARTED CLINDAMYCIN Objective - Vital Signs/Intake and Output Vital Signs (last 24 hours): Temp Pulse Resp BP Pulse Ox 97.5 F L 102 H 26 H 112/70 95 03/01/19 16:07 03/01/19 16:07 03/01/19 16:07 03/01/19 16:07 03/01/19 16:07 Intake and Output: 03/01/19 03/01/19 06:59 18:59 Intake Total 1550 2250 Output Total 800 Balance 750 2250 - Medications Medications: Current Medications Acetaminophen (Tylenol 325mg Tab) 650 mg PO Q4 PRN PRN Reason: Fever >100.4 F Albuterol/Ipratropium (Duoneb 3 Mg/0.5 Mg (3 Ml) Ud) 3 ml INH RQ4 [facility] Last Admin: 03/01/19 15:18 Dose: 3 ml Alprazolam (Xanax) 1 mg PO HS [facility] Last Admin: 02/28/19 22:23 Dose: 1 mg Aspirin (Ecotrin) 81 mg PO DAILY [facility] Last Admin: 03/01/19 09:30 Dose: 81 mg Atorvastatin Calcium (Lipitor) 10 mg PO HS [facility] Last Admin: 02/28/19 22:23 Dose: 10 mg Ethambutol HCl (Myambutol) 800 mg PO DAILY [facility]; Protocol Last Admin: 03/01/19 09:31 Dose: 800 mg Aztreonam 1 gm/ Sodium (Chloride) 100 mls @ 100 mls/hr IVPB Q8H [facility]; Protocol Last Admin: 03/01/19 16:54 Dose: 100 mls/hr Vancomycin HCl 1 gm/ Sodium (Chloride) 250 mls @ 166.667 mls/hr IVPB Q12 [facility]; Protocol Last Admin: 03/01/19 09:32 Dose: 166.667 mls/hr Levofloxacin/Dextrose (Levaquin 750mg) 750 mg in 150 mls @ 100 mls/hr IVPB DAILY@0100 [facility]; Protocol Last Admin: 03/01/19 02:00 Dose: 100 mls/hr Lactated Ringer's (Lactated Ringer's) 1,000 mls @ 100 mls/hr IV .Q10H [facility] Last Admin: 02/28/19 21:30 Dose: 100 mls/hr Isoniazid (Niazid) 300 mg PO DAILY [facility]; Protocol Last Admin: 03/01/19 09:31 Dose: 300 mg Ketorolac Tromethamine (Toradol) 15 mg IVP Q6 PRN PRN Reason: Pain, moderate (4-7) Ketorolac Tromethamine (Toradol) 30 mg IVP Q6 PRN PRN Reason: Pain, severe (8-10) Methylprednisolone (Solu-Medrol) 40 mg IVP Q8H [facility] Last Admin: 03/01/19 16:55 Dose: 40 mg Ondansetron HCl (Zofran Inj) 4 mg IVP Q4 PRN PRN Reason: Nausea/Vomiting Potassium Chloride (K-Dur 20 Meq Er Tab) 40 meq PO DAILY [facility] Last Admin: 03/01/19 12:20 Dose: 40 meq Pyrazinamide (Pyrazinamide) 1,000 mg PO DAILY [facility]; Protocol Last Admin: 03/01/19 09:31 Dose: 1,000 mg Rifampin (Rifampin Cap) 600 mg PO DAILY [facility]; Protocol Last Admin: 03/01/19 09:31 Dose: 600 mg - Labs Labs: 03/01/19 04:45 03/01/19 04:45 PT 18.1 Seconds (9.8-13.1) H 02/25/19 22:51 INR 1.6 02/25/19 22:51 APTT 36.6 Seconds (25.6-37.1) 02/25/19 22:51
[2019-03-01] MEDS ORDERED: Lactated Ringer's 1,000 ML IV SCH (20:04)
--- NOTE | 2019-03-01 20:15 | PN ---
DATE: 03/01/2019 DAILY PROGRESS NOTE SUBJECTIVE: The patient is seen today, 03/01/2019. She is already started on anti-TB medications. PHYSICAL EXAMINATION: VITAL SIGNS: The patient is afebrile with blood pressure 106/78, temperature 98.3, respiratory rate 16 and pulse 99. HEENT: Pupils equal, reactive to light. Normal-appearing mucosa of the conjunctivae, oropharynx and nasal membrane mucosa. NECK: Supple. No JVD. No carotid bruits. CHEST AND LUNGS: Bilateral symmetrical expansion. Good air exchange. No rales. No rhonchi. CARDIOVASCULAR SYSTEM: PMI not localized. S1, S2. No additional sounds. ABDOMEN: Normoactive bowel sounds. No tenderness. No organomegaly. No masses. EXTREMITIES: No cyanosis, no clubbing, no edema. CENTRAL NERVOUS SYSTEM: Alert, awake, oriented x3. No neurological deficit could be appreciated. Chest x-ray: Right upper lobe infiltration with mediastinal lymph nodes. ASSESSMENT: Right upper lobe pneumonia. PLAN: The patient is offered bronchoscopy by accounts supervisor but she declined. Continue current antibiotics as per accounts supervisor and Infectious Disease. Rekha Bedoya MD
--- NOTE | 2019-03-01 23:23 | PN ---
DATE: 03/01/2019 CRITICAL CARE PROGRESS NOTE LOCATION: The patient in ICU, bed 433. Time spent 35 minutes. The patient is seen and evaluated at the bedside. Past medical, surgical, family and social history reviewed. SUBJECTIVE: A 63-year-old female, reformed smoker with a history significant for chronic obstructive pulmonary disease/emphysema, coronary artery disease, status post stent placement. Admitted with two to three weeks of cough with expectoration of brownish sputum. Overnight being treated for community-acquired pneumonia versus pulmonary tuberculosis. Remains afebrile, normotensive. On high-flow nasal oxygen 30 L on 90%, saturating 94%. This morning, alert, awake, follows commands appropriate. No further expectoration or hemoptysis noted. PHYSICAL EXAMINATION: VITAL SIGNS: Temperature 98.2, heart rate 100, blood pressure 118/80, respiratory rate 18, oxygen saturation 96%. Intake 4600, output 1300, positive balance of 3299. HEAD, EYES, EARS, NOSE AND THROAT: Pupils are reactive. Conjunctivae pink. Sclerae white. NECK: Supple. Trachea with mild shifting to right. CHEST: Bilateral breath sounds, diminished in intensity. HEART: Rhythm regular. S1 and S2 normal. No audible murmur. ABDOMEN: Bowel sounds present. Soft. Liver and spleen not palpable. Bladder not distended. EXTREMITIES: No clubbing, cyanosis or edema. NEUROLOGIC: Nonfocal. CURRENT MEDICATIONS: Tylenol 650 mg every 4 hours p.r.n., albuterol/Atrovent inhalation 3 mL via nebulizer every 4 hours, Xanax 1 mg at bedtime, Ecotrin 81 mg daily, Lipitor 10 mg daily, aztreonam 1 g IV daily every 8 hours, isoniazid 300 mg daily, Myambutol 800 mg daily, Toradol 50 mg every 6 hours p.r.n. for pain, Lovenox 40 mg subcu daily, Ringer's lactate at 150 mL per hour, levofloxacin 750 mg IV daily, Solu-Medrol 40 mg IV every 8 hours, Zofran 4 mg every 4 hours for nausea, PZA 1000 mg p.o. daily, thiamine 600 mg p.o. daily, vancomycin 1 g IV every 12 hours. LABORATORY DATA: WBC 11.9, hemoglobin 10.5, hematocrit 30.8, platelet count of 281. PT 18.1, INR 1.6, PTT 36.6. ABG, pending. SMA-7: Sodium 140, potassium 3.4, chloride 109, CO2 of 29, blood urea nitrogen 19, creatinine 0.5, random glucose 103, calcium 8. Toxicology: Alcohol level less than 10. Serology: HIV antibody rapid screen nonreactive. Microbiology: Sputum x3 negative for AFB. Nasal smear MRSA negative. Sputum culture, normal respiratory kenyetta. Blood culture, no growth reported. Chest x-ray repeated this morning shows relatively dense opacification in right upper lung field with slight improvement in aeration, patchy infiltrate in right mid to lower lung field, atelectasis and/or infiltrate, left lower lobe interstitial markings also increased. IMPRESSION AND PLAN: 1. Neurologic: Alert, awake, follows commands appropriate. 2. Pulmonary: Hypoxic respiratory insufficiency, chronic obstructive pulmonary disease/emphysema, on bronchodilator, systemic steroids being reduced. 3. Infectious Disease: Right upper lobe dense consolidation. Differentials include community-acquired pneumonia versus coexisting malignancy. Being followed by Pulmonary. Recommended bronchoscopy. Not decided by the patient. 4. Cardiac: History of coronary artery disease, status post stent, on aspirin. Continue Lovenox. 5. Hematology: Mild leukocytosis secondary to steroid. Hemoglobin and hematocrit remain stable. 6. Renal: Hypokalemia, being supplemented. No other electrolyte abnormalities. 7. Gastrointestinal: Normal liver enzymes. Continue feeding as tolerated. 8. Endocrinology: No history of thyroid disease and/or diabetes mellitus type 2. 9. Keep head of bed at 30 degrees up. Avoid aspiration. Monitor for hemoptysis. Continue diet as tolerated. May be transferred to regular floor and follow up for resolution of right upper lobe consolidation. Moses Herrera MD
[2019-03-02] MEDS: Clindamycin 600mg/50ml NS 600 MG/50 ML BAG IVPB SCH ×3 (01:00→17:43)
[2019-03-02] MEDS: levoFLOXacin 750 mg in D5W 750 MG/150 ML BAG IVPB SCH (02:00)
[2019-03-02] MEDS: Albuterol-Ipratrop 3 mg / 0.5 (3 ml) UD INH SCH ×7 (05:14→23:37)
[2019-03-02] MEDS: MethylPREDNISolone 40 mg Vial IVP SCH ×3 (06:00→20:21)
[2019-03-02] MEDS: Aztreonam 1 GM in Sodium Chloride 0.9% 100 ML IVPB SCH ×3 (06:02→22:11)
[2019-03-02 06:23] LABS: HEMOGLOBIN 10.1 g/dL (12.0-16.0); MEAN CELL VOLUME 88.6 fl (81.0-99.0); MEAN CORPUSCULAR HEMOGLOBIN 28.6 pg (27.0-31.0); MEAN CORPUSCULAR HGB CONC 32.3 g/dL (33.0-37.0); RBC 3.53 Mil/uL (3.80-5.20); RED CELL DISTRIBUTION WIDTH 15.1 % (11.5-14.5); WHITE BLOOD COUNT 15.4 K/uL (4.8-10.8)
[2019-03-02 06:49] LABS: ALB/GLOB RATIO 0.9 (1.0-2.1); ALBUMIN 2.2 g/dL (3.5-5.0); ALT/SGPT 40 U/L (9-52); AST/SGOT 28 U/L (14-36); BLOOD UREA NITROGEN 15 mg/dl (7-17); CALCIUM 7.2 mg/dL (8.4-10.2); GFR NON-AFRICAN AMERICAN > 60
--- NOTE | 2019-03-02 07:35 | CP.CCUPN ---
CCU Subjective - Physician Review Events Since Last Encounter (Free Text): 03/02/19 18:52 The patient was Seen/interviewed and examined by me at the bedside during ICU round, Medical records reviewed and Management issues were discussed and formulated with the house staff. Events reviewed Patient is 63 years old female with past medical history of hypertension and coronary artery disease status post stent x2 Who presented to emergency room on February 25 with complaint of productive cough with greenish brown sputum and on/off fever and chest pain She had chest x-ray and chest CT scan revealed extensive right upper lung zone consolidation/infiltrate, severe emphysema and no evidence of PE Patient admitted to the ICU with diagnosis community acquired pneumonia, rule out pulmonary tuberculosis Also evidence of septic shock on admission with tachycardia, hypotension and elevated lactic acid level Patient is started on broad-spectrum antibiotic coverage She also started on anti-TB medication but discontinue it now after sputum x3 negative AFB smear Patient doing better today, comfortable in no apparent distress Hemodynamically improved, no vasopressor requirements Afebrile Out of bed to chair with no dyspnea on exertion CCU Objective - Vital Signs / Intake & Output Vital Signs (Last 4 hours): Vital Signs Temp Pulse Resp BP Pulse Ox 03/02/19 07:12 19 03/02/19 05:57 98.9 F 94 H 25 H 97/62 L 96 03/02/19 05:24 25 H 03/02/19 04:00 95 H 22 103/64 92 L Intake and Output (Last 8hrs): Intake & Output 03/01/19 03/02/19 03/02/19 22:59 06:59 14:59 Intake Total 1470 660 Output Total 125 600 140 Balance 1345 60 -140 Weight 115 lb 14.4 oz Intake: IV 560 300 Intake, Piggyback 350 300 Oral 560 60 Output: Urine 125 600 140 Urine, Voided 125 600 140 Other: # Voids Urine, Voided 1 - Physical Exam Physical Exam Limitations: Positive for: Clinical Condition Head: Positive for: Atraumatic Pupils: Positive for: PERRL Extroacular Muscles: Positive for: EOMI Conjunctiva: Positive for: Normal. Negative for: Injected Mouth: Positive for: Moist Mucous Membranes Nose (External): Positive for: Atraumatic, Other (On High flow FIO2 100) Respiratory/Chest: Positive for: Good Air Exchange, Rhonchi, Other (crackles in the R side more in the upper area but noted throughout ) Cardiovascular: Positive for: Regular Rate and Rhythm, Normal S1, S2 Abdomen: Positive for: Normal Bowel Sounds. Negative for: Tenderness, Disten tion Upper Extremity: Positive for: Normal Inspection Lower Extremity: Positive for: Normal Inspection Psychiatric: Positive for: Alert, Oriented x 3, Normal Insight - Medications Active Medications: Active Medications Generic Name Dose Route Start Last Admin Trade Name Freq PRN Reason Stop Dose Admin Acetaminophen 650 mg 02/26/19 07:00 Tylenol 325mg Tab PO Q4 PRN Fever >100.4 F Albuterol/Ipratropium 3 ml 02/26/19 08:00 03/02/19 07:14 Duoneb 3 Mg/0.5 Mg (3 Ml) Ud INH 3 ml RQ4 DANY Administration Alprazolam 1 mg 02/27/19 22:00 03/01/19 22:15 Xanax PO 1 mg HS DANY Administration Aspirin 81 mg 02/28/19 09:00 03/01/19 09:30 Ecotrin PO 81 mg DAILY [facility] Administration Atorvastatin Calcium 10 mg 02/27/19 22:00 03/01/19 21:01 Lipitor PO 10 mg HS DANY Administration Ethambutol HCl 800 mg 02/27/19 09:00 03/01/19 09:31 Myambutol PO 800 mg DAILY [facility] Administration Protocol Aztreonam 1 gm/ Sodium 100 mls @ 100 mls/hr 02/26/19 07:00 03/02/19 06:02 Chloride IVPB 100 mls/hr Q8H [facility] Administration Protocol Vancomycin HCl 1 gm/ Sodium 250 mls @ 166.667 mls/hr 02/26/19 09:00 03/01/19 21:01 Chloride IVPB 166.667 mls/hr Q12 [facility] Administration Protocol Levofloxacin/Dextrose 750 mg in 150 mls @ 100 mls/hr 02/27/19 01:00 03/02/19 02:00 Levaquin 750mg IVPB 100 mls/hr DAILY@0100 [facility] Administration Protocol Clindamycin Phosphate 600 mg in 50 mls @ 50 mls/hr 03/02/19 01:00 03/02/19 01:00 Cleocin 600mg/50ml Ns IVPB 50 mls/hr Q8 [facility] Administration Protocol Lactated Ringer's 1,000 mls @ 60 mls/hr 03/01/19 20:04 03/01/19 20:00 Lactated Ringer's IV 60 mls/hr .[id number] [facility] Administration Isoniazid 300 mg 02/27/19 09:00 03/01/19 09:31 Niazid PO 300 mg DAILY [facility] Administration Protocol Ketorolac Tromethamine 15 mg 02/26/19 06:48 Toradol IVP Q6 PRN Pain, moderate (4-7) Ketorolac Tromethamine 30 mg 02/26/19 06:49 Toradol IVP Q6 PRN Pain, severe (8-10) Methylprednisolone 40 mg 02/26/19 07:00 03/02/19 06:00 Solu-Medrol IVP 40 mg Q8H [facility] Administration Ondansetron HCl 4 mg 02/26/19 07:01 Zofran Inj IVP Q4 PRN Nausea/Vomiting Potassium Chloride 40 meq 03/01/19 10:45 03/01/19 12:20 K-Dur 20 Meq Er Tab PO 40 meq DAILY [facility] Administration Pyrazinamide 1,000 mg 02/27/19 09:00 03/01/19 09:31 Pyrazinamide PO 1,000 mg DAILY [facility] Administration Protocol Rifampin 600 mg 02/27/19 09:00 03/01/19 09:31 Rifampin Cap PO 600 mg DAILY [facility] Administration Protocol - Patient Studies Lab Studies: Microbiology Studies 02/25/19 00:50 Blood Culture - Preliminary Blood-Venous NO GROWTH AFTER 4 DAYS 02/25/19 23:40 Blood Culture - Preliminary Blood-Venous NO GROWTH AFTER 4 DAYS Lab Studies 03/02/19 03/02/19 Range/Units 06:05 06:05 WBC 15.4 H (4.8-10.8) K/uL RBC 3.53 L (3.80-5.20) Mil/uL Hgb 10.1 L (12.0-16.0) g/dL Hct 31.3 L (34.0-47.0) % MCV 88.6 (81.0-99.0) fl MCH 28.6 (27.0-31.0) pg MCHC 32.3 L (33.0-37.0) g/dL RDW 15.1 H (11.5-14.5) % Plt Count 242 (130-400) K/uL Sodium 138 (132-148) mmol/l Potassium 3.6 (3.6-5.0) MMOL/L Chloride 105 (98-107) mmol/L Carbon Dioxide 28 (22-30) mmol/L Anion Gap 9 L (10-20) BUN 15 (7-17) mg/dl Creatinine 0.3 L (0.7-1.2) mg/dl Est GFR ( Amer) > 60 Est GFR (Non-Af Amer) > 60 Random Glucose 92 (65-105) mg/dL Calcium 7.2 L (8.4-10.2) mg/dL Total Bilirubin 0.4 (0.2-1.3) mg/dl AST 28 (14-36) U/L ALT 40 (9-52) U/L Alkaline Phosphatase 112 (38-126) U/L Total Protein 4.8 L (6.3-8.2) G/DL Albumin 2.2 L (3.5-5.0) g/dL Globulin 2.6 (2.2-3.9) gm/dL Albumin/Globulin Ratio 0.9 L (1.0-2.1) Laboratory Results - last 24 hr 03/02/19 03/02/19 06:05 06:05 WBC 15.4 H RBC 3.53 L Hgb 10.1 L Hct 31.3 L MCV 88.6 MCH 28.6 MCHC 32.3 L RDW 15.1 H Plt Count 242 Sodium 138 Potassium 3.6 Chloride 105 Carbon Dioxide 28 Anion Gap 9 L BUN 15 Creatinine 0.3 L Est GFR ( Amer) > 60 Est GFR (Non-Af Amer) > 60 Random Glucose 92 Calcium 7.2 L Total Bilirubin 0.4 AST 28 ALT 40 Alkaline Phosphatase 112 Total Protein 4.8 L Albumin 2.2 L Globulin 2.6 Albumin/Globulin Ratio 0.9 L Radiology Impressions: Radiology Impressions Chest X-Ray 03/01/19 20:12 IMPRESSION: Redemonstrated is a relatively dense opacification right upper lung field with slight improvement in aeration. Patchy infiltrates seen in the right mid to lower lung field with atelectasis and/or infiltrate left lower lobe. The interstitial markings are also increased and coarsened throughout the left lung as well as right lower lung field Review of Systems - Constitutional Constitutional: absent: Fever, Chills, Sweats, Weakness, Malaise - Cardiovascular Cardiovascular: absent: Acrocyanosis, Chest Pain, Chest Pain at Rest, Chest Pain with Activity, Claudication, Diaphoresis - Respiratory Respiratory: absent: Cough, Dyspnea, Hemoptysis, Dyspnea on Exertion, Wheezing, Snoring, Stridor Critical Care Progress Note - Extremities/Vascular Does the Patient have a Central Venous Catheter?: No Does the Patient need a Central Venous Catheter?: No Does the Patient have a Shaikh Catheter?: No Does the Patient need a Shaikh Catheter?: No - Nutrition Nutrition: Nutrition Category Date Time Status Heart Healthy Diet [DIET] Diets 02/27/19 Lunch Active Assessment/Plan (1) Hypoxia Current Visit: Yes Status: Acute Priority: High Comment: (2) Pneumonia Current Visit: Yes Status: Acute Priority: High (3) CAD (coronary artery disease) Current Visit: Yes Status: Acute Priority: High - Assessment and Plan (Free Text) Assessment: Continue with broad-spectrum antibiotic coverage as per ID and pulmonary Wean off FiO2 Out of bed to chair Patient refused bronchoscopy Will check with ID to discontinue airborne precautions since 3 sputum's AFB smear negative QuantiFERON gold test pending
--- NOTE | 2019-03-02 08:03 | CP.PCM.PN ---
Subjective - Date & Time of Evaluation Date of Evaluation: 03/02/19 Time of Evaluation: 08:03 - Subjective Subjective: SOB IMPROVING COUGH LESS NO CHEST PAINS Objective - Vital Signs/Intake and Output Vital Signs (last 24 hours): Temp Pulse Resp BP Pulse Ox 98.9 F 94 H 19 97/62 L 96 03/02/19 05:57 03/02/19 05:57 03/02/19 07:12 03/02/19 05:57 03/02/19 05:57 Intake and Output: 03/02/19 03/02/19 06:59 18:59 Intake Total 1130 Output Total 725 140 Balance 405 -140 - Medications Medications: Current Medications Acetaminophen (Tylenol 325mg Tab) 650 mg PO Q4 PRN PRN Reason: Fever >100.4 F Albuterol/Ipratropium (Duoneb 3 Mg/0.5 Mg (3 Ml) Ud) 3 ml INH RQ4 [facility] Last Admin: 03/02/19 07:14 Dose: 3 ml Alprazolam (Xanax) 1 mg PO HS [facility] Last Admin: 03/01/19 22:15 Dose: 1 mg Aspirin (Ecotrin) 81 mg PO DAILY [facility] Last Admin: 03/01/19 09:30 Dose: 81 mg Atorvastatin Calcium (Lipitor) 10 mg PO HS [facility] Last Admin: 03/01/19 21:01 Dose: 10 mg Ethambutol HCl (Myambutol) 800 mg PO DAILY [facility]; Protocol Last Admin: 03/01/19 09:31 Dose: 800 mg Aztreonam 1 gm/ Sodium (Chloride) 100 mls @ 100 mls/hr IVPB Q8H [facility]; Protocol Last Admin: 03/02/19 06:02 Dose: 100 mls/hr Vancomycin HCl 1 gm/ Sodium (Chloride) 250 mls @ 166.667 mls/hr IVPB Q12 [facility]; Protocol Last Admin: 03/01/19 21:01 Dose: 166.667 mls/hr Levofloxacin/Dextrose (Levaquin 750mg) 750 mg in 150 mls @ 100 mls/hr IVPB DAILY@0100 [facility]; Protocol Last Admin: 03/02/19 02:00 Dose: 100 mls/hr Clindamycin Phosphate (Cleocin 600mg/50ml Ns) 600 mg in 50 mls @ 50 mls/hr IVPB Q8 [facility]; Protocol Last Admin: 03/02/19 01:00 Dose: 50 mls/hr Lactated Ringer's (Lactated Ringer's) 1,000 mls @ 60 mls/hr IV .[id number] [facility] Last Admin: 03/01/19 20:00 Dose: 60 mls/hr Isoniazid (Niazid) 300 mg PO DAILY [facility]; Protocol Last Admin: 03/01/19 09:31 Dose: 300 mg Ketorolac Tromethamine (Toradol) 15 mg IVP Q6 PRN PRN Reason: Pain, moderate (4-7) Ketorolac Tromethamine (Toradol) 30 mg IVP Q6 PRN PRN Reason: Pain, severe (8-10) Methylprednisolone (Solu-Medrol) 40 mg IVP Q8H [facility] Last Admin: 03/02/19 06:00 Dose: 40 mg Ondansetron HCl (Zofran Inj) 4 mg IVP Q4 PRN PRN Reason: Nausea/Vomiting Potassium Chloride (K-Dur 20 Meq Er Tab) 40 meq PO DAILY [facility] Last Admin: 03/01/19 12:20 Dose: 40 meq Pyrazinamide (Pyrazinamide) 1,000 mg PO DAILY [facility]; Protocol Last Admin: 03/01/19 09:31 Dose: 1,000 mg Rifampin (Rifampin Cap) 600 mg PO DAILY [facility]; Protocol Last Admin: 03/01/19 09:31 Dose: 600 mg - Labs Labs: 03/02/19 06:05 03/02/19 06:05 PT 18.1 Seconds (9.8-13.1) H 02/25/19 22:51 INR 1.6 02/25/19 22:51 APTT 36.6 Seconds (25.6-37.1) 02/25/19 22:51 - Constitutional Appears: No Acute Distress - Head Exam Head Exam: ATRAUMATIC, NORMAL INSPECTION, NORMOCEPHALIC - Eye Exam Eye Exam: EOMI, Normal appearance, PERRL Pupil Exam: NORMAL ACCOMODATION, PERRL - ENT Exam ENT Exam: Mucous Membranes Moist, Normal Exam - Neck Exam Neck Exam: Full ROM, Normal Inspection. absent: Lymphadenopathy - Respiratory Exam Respiratory Exam: Decreased Breath Sounds, Prolonged Expiratory Phase, Rales, NORMAL BREATHING PATTERN Additional comments: ON HIGH FLOW O2 - Cardiovascular Exam Cardiovascular Exam: REGULAR RHYTHM, +S1, +S2. absent: Murmur - GI/Abdominal Exam GI & Abdominal Exam: Soft, Normal Bowel Sounds. absent: Tenderness - Rectal Exam Rectal Exam: NORMAL INSPECTION - Extremities Exam Extremities Exam: Full ROM, Normal Capillary Refill, Normal Inspection. absent: Joint Swelling, Pedal Edema - Back Exam Back Exam: NORMAL INSPECTION - Neurological Exam Neurological Exam: Alert, Awake, CN II-XII Intact, Normal Gait, Oriented x3 - Psychiatric Exam Psychiatric exam: Normal Affect, Normal Mood - Skin Skin Exam: Dry, Intact, Normal Color, Warm Assessment and Plan - Assessment and Plan (Free Text) Assessment: RESP FAILURE IMPROVING PNEUMONIA IMPROVING COPD EXAC Plan: AWAIT RESULTS OF AFB SMEARS REPEAT CXR AND ABGS CONSIDER D/C ANTITB MEDS 9IF REMAINING AFB SMEARS ARE NEGATIVE PT REFUSED BRONCHOSCOPY
[2019-03-02] MEDS: Potassium Chloride 20 mEq ER Tab PO SCH (09:24)
[2019-03-02 09:58] LABS: ABG ALLEN TEST YES; ARTERIAL BLOOD GAS HCO3 30.8 mmol/L (21-28); ARTERIAL BLOOD GAS HEMOGLOBIN 10.7 g/dL (11.7-17.4); ARTERIAL BLOOD GAS O2 CAPACITY 14.7 mL/dL (16-24); ARTERIAL BLOOD GAS O2 CONTENT 14.2 ML/dL (15-23); ARTERIAL BLOOD GAS O2 SAT 96.8 % (95-98); ARTERIAL BLOOD GAS PCO2 38 mm/Hg (35-45); ARTERIAL BLOOD GAS PH 7.52 (7.35-7.45); ARTERIAL BLOOD GAS PO2 69 mm/Hg (80-100); ARTERIAL BLOOD GAS TCO2 32.2 mmol/L (22-28)
--- NOTE | 2019-03-02 13:07 | RAD ---
Date of service: 03/02/2019 PROCEDURE: CHEST RADIOGRAPH, 1 VIEW HISTORY: PNEUMONIA COMPARISON: 03/01/2019. Single-view chest. 02/25/2019. CT thorax. FINDINGS: LUNGS: Stable right upper lobe infiltrate/mass. Persistent infiltrates both lower lobes. PLEURA: No pneumothorax or pleural fluid seen. CARDIOVASCULAR: No aortic atherosclerotic calcification present. Normal. OSSEOUS STRUCTURES: No significant abnormalities. VISUALIZED UPPER ABDOMEN: Normal. OTHER FINDINGS: None. IMPRESSION: Right upper lobe infiltrate unchanged. Persistent lower lobe infiltrates. Accounting for differences in technique (suboptimal inspiratory effort on the current study) no interval change.
[2019-03-02] MEDS ORDERED: methylPREDNISolone 20 MG in Sodium Chloride 0.9% 50 ML IV SCH (18:45)
--- NOTE | 2019-03-02 22:53 | PN ---
DATE: 03/02/2019 DAILY PROGRESS NOTE SUBJECTIVE: The patient is seen today 03/02/2019. She is having less shortness of breath and cough. PHYSICAL EXAMINATION: VITAL SIGNS: Blood pressure 105/69, temperature 97.9, respiratory rate 20, and pulse 97. HEENT: Pupils equal and reactive to light. Normal-appearing mucosa of the conjunctivae, oropharynx, and nasal membrane mucosa. NECK: Supple. No JVD. No carotid bruits. No lymph node. No thyromegaly. CHEST AND LUNGS: Bilateral symmetrical expansion. Good air exchange. Bilateral rhonchi less than before. CARDIOVASCULAR SYSTEM: PMI not localized. S1, S2. No additional sounds. ABDOMEN: Normoactive bowel sounds. No tenderness. No organomegaly. No masses. EXTREMITIES: No cyanosis, no clubbing, no edema. CENTRAL NERVOUS SYSTEM: Alert, awake, oriented x3. No neurological deficit could be appreciated. ASSESSMENT: 1. Right upper lobe pneumonia. 2. Hypoxic respiratory failure. PLAN: The anti-TB medications were stopped based on Pulmonary and Infectious Disease recommendation due to negative sputum for AFB x3. Continue current antibiotics and bronchodilators, and we will decrease steroid to 20 mg every 8 hours. Follow gold QuantiFERON test. Follow recommendations of water purification chemist and Infectious Disease. Rekha Bedoya MD
[2019-03-03] MEDS: Clindamycin 600mg/50ml NS 600 MG/50 ML BAG IVPB SCH ×3 (00:17→17:26)
[2019-03-03] MEDS: levoFLOXacin 750 mg in D5W 750 MG/150 ML BAG IVPB SCH (00:18)
[2019-03-03] MEDS: MethylPREDNISolone 40 mg Vial IVP SCH ×3 (03:00→18:23)
[2019-03-03] MEDS: Albuterol-Ipratrop 3 mg / 0.5 (3 ml) UD INH SCH ×6 (04:57→23:50)
[2019-03-03 05:21] LABS: HEMOGLOBIN 9.9 g/dL (12.0-16.0); MEAN CELL VOLUME 87.7 fl (81.0-99.0); MEAN CORPUSCULAR HEMOGLOBIN 29.2 pg (27.0-31.0); MEAN CORPUSCULAR HGB CONC 33.3 g/dL (33.0-37.0); RBC 3.4 Mil/uL (3.80-5.20); RED CELL DISTRIBUTION WIDTH 14.4 % (11.5-14.5); WHITE BLOOD COUNT 15.4 K/uL (4.8-10.8)
[2019-03-03 05:54] LABS: BLOOD UREA NITROGEN 11 mg/dl (7-17); CALCIUM 7.4 mg/dL (8.4-10.2); GFR NON-AFRICAN AMERICAN > 60
[2019-03-03] MEDS: Aztreonam 1 GM in Sodium Chloride 0.9% 100 ML IVPB SCH (08:16)
[2019-03-03] MEDS: Potassium Chloride 20 mEq ER Tab PO SCH (08:23)
[2019-03-03] MEDS ORDERED: Potassium Chloride 20 mEq ER Tab PO ONE (08:39)
--- NOTE | 2019-03-03 08:42 | CP.PCM.PN ---
Subjective - Date & Time of Evaluation Date of Evaluation: 03/03/19 Time of Evaluation: 08:43 - Subjective Subjective: CLINICALLY IMPROVING SOB LESS LESS SPUTUM PRODUCTION AFEBRILE ALL SPUTUM AFB-NEGATIVE Objective - Vital Signs/Intake and Output Vital Signs (last 24 hours): Temp Pulse Resp BP Pulse Ox 99.1 F 107 H 24 118/68 94 L 03/03/19 08:00 03/03/19 08:00 03/03/19 08:00 03/03/19 08:00 03/03/19 08:00 Intake and Output: 03/03/19 03/03/19 06:59 18:59 Intake Total 770 Output Total 1075 Balance -305 - Medications Medications: Current Medications Acetaminophen (Tylenol 325mg Tab) 650 mg PO Q4 PRN PRN Reason: Fever >100.4 F Albuterol/Ipratropium (Duoneb 3 Mg/0.5 Mg (3 Ml) Ud) 3 ml INH RQ4 [facility] Last Admin: 03/03/19 07:47 Dose: 3 ml Alprazolam (Xanax) 1 mg PO HS [facility] Last Admin: 03/02/19 22:11 Dose: 1 mg Aspirin (Ecotrin) 81 mg PO DAILY [facility] Last Admin: 03/03/19 08:23 Dose: 81 mg Atorvastatin Calcium (Lipitor) 10 mg PO HS [facility] Last Admin: 03/02/19 22:11 Dose: 10 mg Vancomycin HCl 1 gm/ Sodium (Chloride) 250 mls @ 166.667 mls/hr IVPB Q12 [facility]; Protocol Last Admin: 03/02/19 20:21 Dose: 166.667 mls/hr Levofloxacin/Dextrose (Levaquin 750mg) 750 mg in 150 mls @ 100 mls/hr IVPB DAILY@0100 [facility]; Protocol Last Admin: 03/03/19 00:18 Dose: 100 mls/hr Clindamycin Phosphate (Cleocin 600mg/50ml Ns) 600 mg in 50 mls @ 50 mls/hr IVPB Q8 [facility]; Protocol Last Admin: 03/03/19 08:24 Dose: 50 mls/hr Methylprednisolone (Solu-Medrol) 20 mg IVP Q8H [facility] Last Admin: 03/02/19 20:21 Dose: 20 mg Ondansetron HCl (Zofran Inj) 4 mg IVP Q4 PRN PRN Reason: Nausea/Vomiting Potassium Chloride (K-Dur 20 Meq Er Tab) 40 meq PO DAILY [facility] Last Admin: 03/03/19 08:23 Dose: 40 meq - Labs Labs: 03/03/19 04:31 03/03/19 04:31 PT 18.1 Seconds (9.8-13.1) H 02/25/19 22:51 INR 1.6 02/25/19 22:51 APTT 36.6 Seconds (25.6-37.1) 02/25/19 22:51 - Constitutional Appears: Chronically Ill - Head Exam Head Exam: ATRAUMATIC, NORMAL INSPECTION, NORMOCEPHALIC - Eye Exam Eye Exam: EOMI, Normal appearance, PERRL Pupil Exam: NORMAL ACCOMODATION, PERRL - ENT Exam ENT Exam: Mucous Membranes Moist, Normal Exam - Neck Exam Neck Exam: Full ROM, Normal Inspection. absent: Lymphadenopathy - Respiratory Exam Respiratory Exam: Prolonged Expiratory Phase, Rales Additional comments: ON HIGH FLOW O2 - Cardiovascular Exam Cardiovascular Exam: REGULAR RHYTHM, +S1, +S2. absent: Murmur - GI/Abdominal Exam GI & Abdominal Exam: Soft, Normal Bowel Sounds. absent: Tenderness - Rectal Exam Rectal Exam: NORMAL INSPECTION - Extremities Exam Extremities Exam: Full ROM, Normal Capillary Refill, Normal Inspection. absent: Joint Swelling, Pedal Edema - Back Exam Back Exam: NORMAL INSPECTION - Neurological Exam Neurological Exam: Alert, Awake, CN II-XII Intact, Normal Gait, Oriented x3 - Psychiatric Exam Psychiatric exam: Normal Affect, Normal Mood - Skin Skin Exam: Dry, Intact, Normal Color, Warm Assessment and Plan - Assessment and Plan (Free Text) Assessment: NECROTIZING PNEUMONIA BULLOUS EMPHYSEMA Plan: D/C RESPIRATORY ISOLATION DECREASE FI02 SERIAL CXRS CONTINUE IV ANTIBIOTIC RX WILL PROBABLY NEED OUT PT BRONCHOSCOPY FOR EVALUATION OF AIRWAYS IF CXR FINDINGS PERSIST--PT WAS OFFERRED BRONCHOSCOPY SEVERAL TIMES BUT REFUSED
--- NOTE | 2019-03-03 08:48 | CP.CCUPN ---
CCU Subjective - Physician Review Subjective (Free Text): No acute overnight events. Patient seen and examined by bedside this AM Patient continues to be on high flow, currently at FiO2 of 90%, wean down as tolerated Patient has tolerated high flow well, maintaining O2 saturation 93-97% Sputum culture remains neg thus far, AFB x 3 neg for acid fast bascilli TB meds were discontinued on 03/02, isolation discontinued Patient states that she is feeling better, low appetite this AM but overall feeling better. States that cough has improved since admission and less sputum production. Denies dyspnea and chest pain Imaging, blood work and findings reviewed 1. Acute Resp Insufficiency -likely 2/2 to RUL Pneumonia, with COPD vs ?TB vs questionable underlying malignancy? -AFB x 3 neg, TB meds d/carlos yesterday -currently on high flow, will wean off as tolerated -Pulmonary and ID on consult -Pulmonary: patient refused bronchoscopy, recs outpatient bronchoscopy -c/w Levofloxacin + clinda, vancomycin d/carlos as per by ID -on steroids weaning off 2. Leukopenia -resolved, currently leukocytosis -proclacitonin elevated at 7.76 -Bcx no growth -on abx 3. Anemia, acute vs chronic -stable h/h -no acute source of bleeding -follow up and replace as needed 4. CAD -hx of CT 5 yrs ago -c/w asa and statin 5. hx of anxiety -Xanax at home -continue xanax HS 6. DVT -Lovenox SC CCU Objective - Vital Signs / Intake & Output Vital Signs (Last 4 hours): Vital Signs Temp Pulse Resp BP Pulse Ox 03/03/19 08:00 99.1 F 107 H 24 118/68 94 L 03/03/19 06:00 98 H 22 108/69 96 03/03/19 04:57 21 Intake and Output (Last 8hrs): Intake & Output 03/02/19 03/03/19 03/03/19 22:59 06:59 14:59 Intake Total 510 410 Output Total 525 700 Balance -15 -290 Weight 51.71 kg Intake: IV 260 360 Intake, Piggyback 150 Oral 100 50 Output: Urine 525 700 Urine, Voided 525 700 Other: # Voids Urine, Voided 2 1 # Bowel Movements 1 - Physical Exam Physical Exam Limitations: Positive for: Other (cacaxia, pallor noted ) Head: Positive for: Atraumatic Pupils: Positive for: PERRL Extroacular Muscles: Positive for: EOMI Conjunctiva: Positive for: Normal. Negative for: Injected Mouth: Positive for: Moist Mucous Membranes Nose (External): Positive for: Atraumatic, Other (On High flow FIO2 100) Respiratory/Chest: Positive for: Good Air Exchange, Rhonchi, Other (crackles in the R side more in the upper area but noted throughout, mild expiratory wheezing in the R side ) Cardiovascular: Positive for: Regular Rate and Rhythm, Normal S1, S2 Abdomen: Positive for: Normal Bowel Sounds. Negative for: Tenderness, Distenti on Upper Extremity: Positive for: Normal Inspection Lower Extremity: Positive for: Normal Inspection Skin: Positive for: Warm, Dry, Pale Psychiatric: Positive for: Alert, Oriented x 3, Normal Insight - Medications Active Medications: Active Medications Generic Name Dose Route Start Last Admin Trade Name Freq PRN Reason Stop Dose Admin Acetaminophen 650 mg 02/26/19 07:00 Tylenol 325mg Tab PO Q4 PRN Fever >100.4 F Albuterol/Ipratropium 3 ml 02/26/19 08:00 03/03/19 07:47 Duoneb 3 Mg/0.5 Mg (3 Ml) Ud INH 3 ml RQ4 [facility] Administration Alprazolam 1 mg 02/27/19 22:00 03/02/19 22:11 Xanax PO 1 mg HS [facility] Administration Aspirin 81 mg 02/28/19 09:00 03/03/19 08:23 Ecotrin PO 81 mg DAILY [facility] Administration Atorvastatin Calcium 10 mg 02/27/19 22:00 03/02/19 22:11 Lipitor PO 10 mg HS [facility] Administration Vancomycin HCl 1 gm/ Sodium 250 mls @ 166.667 mls/hr 02/26/19 09:00 03/02/19 20:21 Chloride IVPB 166.667 mls/hr Q12 [facility] Administration Protocol Levofloxacin/Dextrose 750 mg in 150 mls @ 100 mls/hr 02/27/19 01:00 03/03/19 00:18 Levaquin 750mg IVPB 100 mls/hr DAILY@0100 [facility] Administration Protocol Clindamycin Phosphate 600 mg in 50 mls @ 50 mls/hr 03/02/19 01:00 03/03/19 08:24 Cleocin 600mg/50ml Ns IVPB 50 mls/hr Q8 [facility] Administration Protocol Methylprednisolone 20 mg 03/02/19 19:00 03/02/19 20:21 Solu-Medrol IVP 20 mg Q8H [facility] Administration Ondansetron HCl 4 mg 02/26/19 07:01 Zofran Inj IVP Q4 PRN Nausea/Vomiting Potassium Chloride 40 meq 03/01/19 10:45 03/03/19 08:23 K-Dur 20 Meq Er Tab PO 40 meq DAILY [facility] Administration Potassium Chloride 20 meq 03/03/19 08:39 K-Dur 20 Meq Er Tab PO 03/03/19 08:40 ONCE ONE - Patient Studies Lab Studies: Microbiology Studies 02/25/19 00:50 Blood Culture - Final Blood-Venous NO GROWTH AFTER 5 DAYS Gram Stain - Final TEST NOT PERFORMED 02/25/19 23:40 Blood Culture - Final Blood-Venous NO GROWTH AFTER 5 DAYS Gram Stain - Final TEST NOT PERFORMED 02/28/19 16:35 Ova and Parasite Concentrate Exam - Final Stool Lab Studies 03/03/19 03/03/19 03/02/19 Range/Units 04:31 04:31 09:00 WBC 15.4 H (4.8-10.8) K/uL RBC 3.40 L (3.80-5.20) Mil/uL Hgb 9.9 L (12.0-16.0) g/dL Hct 29.8 L (34.0-47.0) % MCV 87.7 (81.0-99.0) fl MCH 29.2 (27.0-31.0) pg MCHC 33.3 (33.0-37.0) g/dL RDW 14.4 (11.5-14.5) % Plt Count 256 (130-400) K/uL pCO2 38 (35-45) mm/Hg pO2 69 L (80-100) mm/Hg HCO3 30.8 H (21-28) mmol/L ABG pH 7.52 H (7.35-7.45) ABG Total CO2 32.2 H (22-28) mmol/L ABG O2 Saturation 96.8 (95-98) % ABG O2 Content 14.2 L (15-23) ML/dL ABG Base Excess 7.6 H (-2.0-3.0) mmol/L ABG Hemoglobin 10.7 L (11.7-17.4) g/dL ABG Carboxyhemoglobin 1.7 H (0.5-1.5) % POC ABG HHb (Measured) 3.1 (0.0-5.0) % ABG Methemoglobin 1.1 (0.0-3.0) % ABG O2 Capacity 14.7 L (16-24) mL/dL Ricardo Test Yes A-a O2 Difference 525.0 mm/Hg Hgb O2 Saturation 94.1 L (95.0-98.0) % FiO2 90.0 % Blood Gas Comments High flow 30l/m.90% Crit Value Read Back N Sodium 138 (132-148) mmol/l Potassium 3.2 L (3.6-5.0) MMOL/L Chloride 103 (98-107) mmol/L Carbon Dioxide 30 (22-30) mmol/L Anion Gap 8 L (10-20) BUN 11 (7-17) mg/dl Creatinine 0.4 L (0.7-1.2) mg/dl Est GFR ( Amer) > 60 Est GFR (Non-Af Amer) > 60 Random Glucose 84 (65-105) mg/dL Calcium 7.4 L (8.4-10.2) mg/dL Procalcitonin (0.19-0.49) NG/ML Ur L.pneumophila Ag (NEGATIVE) TB Test (QFT) Nil IU/mL TB Test Mitogen - Nil IU/mL TB Test Antigen - Nil IU/mL TB Test TB - Nil IU/mL TB Test (QFT) (Negative) 03/01/19 03/01/19 02/26/19 Range/Units 18:57 17:06 09:52 WBC (4.8-10.8) K/uL RBC (3.80-5.20) Mil/uL Hgb (12.0-16.0) g/dL Hct (34.0-47.0) % MCV (81.0-99.0) fl MCH (27.0-31.0) pg MCHC (33.0-37.0) g/dL RDW (11.5-14.5) % Plt Count (130-400) K/uL pCO2 (35-45) mm/Hg pO2 (80-100) mm/Hg HCO3 (21-28) mmol/L ABG pH (7.35-7.45) ABG Total CO2 (22-28) mmol/L ABG O2 Saturation (95-98) % ABG O2 Content (15-23) ML/dL ABG Base Excess (-2.0-3.0) mmol/L ABG Hemoglobin (11.7-17.4) g/dL ABG Carboxyhemoglobin (0.5-1.5) % POC ABG HHb (Measured) (0.0-5.0) % ABG Methemoglobin (0.0-3.0) % ABG O2 Capacity (16-24) mL/dL Ricardo Test A-a O2 Difference mm/Hg Hgb O2 Saturation (95.0-98.0) % FiO2 % Blood Gas Comments Crit Value Read Back Sodium (132-148) mmol/l Potassium (3.6-5.0) MMOL/L Chloride (98-107) mmol/L Carbon Dioxide (22-30) mmol/L Anion Gap (10-20) BUN (7-17) mg/dl Creatinine (0.7-1.2) mg/dl Est GFR ( Amer) Est GFR (Non-Af Amer) Random Glucose (65-105) mg/dL Calcium (8.4-10.2) mg/dL Procalcitonin 1.61 H (0.19-0.49) NG/ML Ur L.pneumophila Ag Negative (NEGATIVE) TB Test (QFT) Nil 0.01 IU/mL TB Test Mitogen - Nil 0.01 IU/mL TB Test Antigen - Nil 0.01 IU/mL TB Test TB - Nil 0.01 IU/mL TB Test (QFT) Indeterminate H (Negative) Laboratory Results - last 24 hr 02/26/19 03/01/19 03/01/19 09:52 17:06 18:57 WBC RBC Hgb Hct MCV MCH MCHC RDW Plt Count pCO2 pO2 HCO3 ABG pH ABG Total CO2 ABG O2 Saturation ABG O2 Content ABG Base Excess ABG Hemoglobin ABG Carboxyhemoglobin POC ABG HHb (Measured) ABG Methemoglobin ABG O2 Capacity Ricardo Test A-a O2 Difference Hgb O2 Saturation FiO2 Blood Gas Comments Crit Value Read Back Sodium Potassium Chloride Carbon Dioxide Anion Gap BUN Creatinine Est GFR ( Amer) Est GFR (Non-Af Amer) Random Glucose Calcium Procalcitonin 1.61 H Ur L.pneumophila Ag Negative TB Test (QFT) Nil 0.01 TB Test Mitogen - Nil 0.01 TB Test Antigen - Nil 0.01 TB Test TB - Nil 0.01 TB Test (QFT) Indeterminate H 03/02/19 03/03/19 03/03/19 09:00 04:31 04:31 WBC 15.4 H RBC 3.40 L Hgb 9.9 L Hct 29.8 L MCV 87.7 MCH 29.2 MCHC 33.3 RDW 14.4 Plt Count 256 pCO2 38 pO2 69 L HCO3 30.8 H ABG pH 7.52 H ABG Total CO2 32.2 H ABG O2 Saturation 96.8 ABG O2 Content 14.2 L ABG Base Excess 7.6 H ABG Hemoglobin 10.7 L ABG Carboxyhemoglobin 1.7 H POC ABG HHb (Measured) 3.1 ABG Methemoglobin 1.1 ABG O2 Capacity 14.7 L Ricardo Test Yes A-a O2 Difference 525.0 Hgb O2 Saturation 94.1 L FiO2 90.0 Blood Gas Comments High flow 30l/m.90% Crit Value Read Back N Sodium 138 Potassium 3.2 L Chloride 103 Carbon Dioxide 30 Anion Gap 8 L BUN 11 Creatinine 0.4 L Est GFR ( Amer) > 60 Est GFR (Non-Af Amer) > 60 Random Glucose 84 Calcium 7.4 L Procalcitonin Ur L.pneumophila Ag TB Test (QFT) Nil TB Test Mitogen - Nil TB Test Antigen - Nil TB Test TB - Nil TB Test (QFT) Radiology Impressions: Radiology Impressions Chest X-Ray 03/02/19 08:04 IMPRESSION: Right upper lobe infiltrate unchanged. Persistent lower lobe infiltrates. Accounting for differences in technique (suboptimal inspiratory effort on the current study) no interval change. Review of Systems - Cardiovascular Cardiovascular: absent: Chest Pain, Dyspnea - Respiratory Respiratory: Cough. absent: Dyspnea - Gastrointestinal Gastrointestinal: absent: Abdominal Pain Critical Care Progress Note - Nutrition Nutrition: Nutrition Category Date Time Status Heart Healthy Diet [DIET] Diets 02/27/19 Lunch Active
[2019-03-03] MEDS: Enoxaparin 40 mg Syringe SC SCH (12:30)
[2019-03-03 13:14] LABS: SQUAMOUS EPITHIAL 2 /hpf (0-5); URINE BILIRUBIN NEGATIVE (NEGATIVE); URINE BLOOD SMALL (NEGATIVE); URINE CLARITY SLIGHTY-CLOUDY (Clear); URINE COLOR YELLOW (YELLOW); URINE GLUCOSE (UA) NEG (NEGATIVE); URINE LEUKOCYTE ESTERASE NEG Leu/uL (Negative); URINE PROTEIN NEGATIVE (NEGATIVE); URINE UROBILINOGEN 0.2-1.0 mg/dL (0.2-1.0)
[2019-03-04] MEDS: Clindamycin 600mg/50ml NS 600 MG/50 ML BAG IVPB SCH ×3 (00:24→16:08)
[2019-03-04] MEDS: levoFLOXacin 750 mg in D5W 750 MG/150 ML BAG IVPB SCH (00:27)
[2019-03-04] MEDS: MethylPREDNISolone 40 mg Vial IVP SCH ×3 (03:12→18:11)
--- NOTE | 2019-03-04 03:47 | PN ---
DATE: 03/03/2019 DAILY PROGRESS NOTE SUBJECTIVE: The patient is seen today, 03/03/2019. She is off high-flow oxygen and so far tolerating. PHYSICAL EXAMINATION: VITAL SIGNS: Blood pressure is 117/70, temperature 98.7, respiratory rate 30, and pulse 115. HEENT: Pupils equal and reactive to light. Normal-appearing mucosa of the conjunctivae, oropharynx, and nasal membrane mucosa. NECK: Supple. No JVD. No carotid bruit. No lymph node. No thyromegaly. CHEST AND LUNGS: Bilateral symmetrical expansion. Good air exchange. Few scattered rhonchi. CARDIOVASCULAR SYSTEM: PMI not localized. S1, S2. No additional sounds. ABDOMEN: Normoactive bowel sounds. No tenderness. No organomegaly. No masses. EXTREMITIES: No cyanosis, no clubbing, no edema. CENTRAL NERVOUS SYSTEM: Alert, awake, oriented x2. No neurological deficit could be appreciated. ASSESSMENT: Necrotizing pneumonia, bullous emphysema. PLAN: Respiratory isolation was discontinued as sputum for AFB is negative. Continue to taper off oxygen and continue current IV antibiotics as per Pulmonary and ID consult. Rekha Bedoya MD
[2019-03-04] MEDS: Albuterol-Ipratrop 3 mg / 0.5 (3 ml) UD INH SCH ×6 (04:56→23:43)
[2019-03-04 05:31] LABS: BASO % 0.2 % (0.0-2.0); EOS # 0.1 K/uL (0.0-0.7); EOS % 0.4 % (0.0-4.0); HEMOGLOBIN 9.3 g/dL (12.0-16.0); LYMPH # 0.6 K/uL (1.0-4.3); LYMPH % 3.3 % (20.0-40.0); MEAN CELL VOLUME 87.7 fl (81.0-99.0); MEAN CORPUSCULAR HEMOGLOBIN 29.3 pg (27.0-31.0); MEAN CORPUSCULAR HGB CONC 33.4 g/dL (33.0-37.0); MEAN PLATELET VOLUME 7.7 fl (7.2-11.7); MONO # 0.5 K/uL (0.0-0.8); MONO % 2.6 % (0.0-10.0); NEUT # 16.8 K/uL (1.8-7.0); NEUT % 93.5 % (50.0-75.0); PLATELET COUNT 239 K/uL (130-400); RBC 3.18 Mil/uL (3.80-5.20); RED CELL DISTRIBUTION WIDTH 14.2 % (11.5-14.5); WHITE BLOOD COUNT 17.9 K/uL (4.8-10.8)
[2019-03-04 05:54] LABS: ALB/GLOB RATIO 0.8 (1.0-2.1); ALBUMIN 2.1 g/dL (3.5-5.0); ALT/SGPT 33 U/L (9-52); AST/SGOT 37 U/L (14-36); BLOOD UREA NITROGEN 6 mg/dl (7-17); CALCIUM 7.6 mg/dL (8.4-10.2); GFR NON-AFRICAN AMERICAN > 60
[2019-03-04 08:05] LABS: LYMPHOCYTE 5 % (20-50); MONOCYTE 4 % (0-10); NEUTROPHIL 91 % (42-75); PLATELET ESTIMATE NORMAL (NORMAL); TOTAL CELLS COUNTED 100
[2019-03-04 08:06] LABS: ANISOCYTOSIS SLIGHT; LARGE PLATELETS PRESENT; OVALOCYTES MODERATE
[2019-03-04] MEDS: Potassium Chloride 20 mEq ER Tab PO SCH (08:11)
[2019-03-04] MEDS: Enoxaparin 40 mg Syringe SC SCH (08:12)
--- NOTE | 2019-03-04 08:27 | CP.PCM.PN ---
Subjective - Date & Time of Evaluation Date of Evaluation: 03/04/19 Time of Evaluation: 08:29 - Subjective Subjective: CLINICALLY IMPROVING SOB OLESS LESS COUGH O2 SAT 90% ON NC O2 Objective - Vital Signs/Intake and Output Vital Signs (last 24 hours): Temp Pulse Resp BP Pulse Ox 98.2 F 101 H 24 97/53 L 94 L 03/04/19 07:51 03/04/19 07:51 03/04/19 07:51 03/04/19 07:51 03/04/19 07:51 Intake and Output: 03/04/19 03/04/19 06:59 18:59 Intake Total 350 Output Total 700 Balance -350 - Medications Medications: Current Medications Acetaminophen (Tylenol 325mg Tab) 650 mg PO Q4 PRN PRN Reason: Fever >100.4 F Albuterol/Ipratropium (Duoneb 3 Mg/0.5 Mg (3 Ml) Ud) 3 ml INH RQ4 [facility] Last Admin: 03/04/19 07:28 Dose: 3 ml Alprazolam (Xanax) 1 mg PO HS [facility] Last Admin: 03/03/19 21:19 Dose: 1 mg Aspirin (Ecotrin) 81 mg PO DAILY [facility] Last Admin: 03/04/19 08:12 Dose: 81 mg Atorvastatin Calcium (Lipitor) 10 mg PO HS [facility] Last Admin: 03/03/19 21:15 Dose: 10 mg Enoxaparin Sodium (Lovenox) 40 mg SC DAILY [facility]; Protocol Last Admin: 03/04/19 08:12 Dose: 40 mg Levofloxacin/Dextrose (Levaquin 750mg) 750 mg in 150 mls @ 100 mls/hr IVPB DAILY@0100 [facility]; Protocol Last Admin: 03/04/19 00:27 Dose: 100 mls/hr Clindamycin Phosphate (Cleocin 600mg/50ml Ns) 600 mg in 50 mls @ 50 mls/hr IVPB Q8 [facility]; Protocol Last Admin: 03/04/19 08:12 Dose: 50 mls/hr Methylprednisolone (Solu-Medrol) 20 mg IVP Q8H [facility] Last Admin: 03/04/19 03:12 Dose: 20 mg Ondansetron HCl (Zofran Inj) 4 mg IVP Q4 PRN PRN Reason: Nausea/Vomiting Potassium Chloride (K-Dur 20 Meq Er Tab) 40 meq PO DAILY [facility] Last Admin: 03/04/19 08:11 Dose: 40 meq - Labs Labs: 03/04/19 04:38 03/04/19 04:38 PT 18.1 Seconds (9.8-13.1) H 02/25/19 22:51 INR 1.6 02/25/19 22:51 APTT 36.6 Seconds (25.6-37.1) 02/25/19 22:51 - Constitutional Appears: Chronically Ill - Head Exam Head Exam: ATRAUMATIC, NORMAL INSPECTION, NORMOCEPHALIC - Eye Exam Eye Exam: EOMI, Normal appearance, PERRL Pupil Exam: NORMAL ACCOMODATION, PERRL - ENT Exam ENT Exam: Mucous Membranes Moist, Normal Exam - Neck Exam Neck Exam: Full ROM, Normal Inspection. absent: Lymphadenopathy - Respiratory Exam Respiratory Exam: Decreased Breath Sounds, Rales, NORMAL BREATHING PATTERN - Cardiovascular Exam Cardiovascular Exam: REGULAR RHYTHM, +S1, +S2. absent: Murmur - GI/Abdominal Exam GI & Abdominal Exam: Soft, Normal Bowel Sounds. absent: Tenderness - Rectal Exam Rectal Exam: NORMAL INSPECTION - Extremities Exam Extremities Exam: Full ROM, Normal Capillary Refill, Normal Inspection. absent: Joint Swelling, Pedal Edema - Back Exam Back Exam: NORMAL INSPECTION - Neurological Exam Neurological Exam: Alert, Awake, CN II-XII Intact, Normal Gait, Oriented x3 - Psychiatric Exam Psychiatric exam: Normal Affect, Normal Mood - Skin Skin Exam: Dry, Intact, Normal Color, Warm Assessment and Plan - Assessment and Plan (Free Text) Assessment: RESPIRATORY FAILURE--IMPROVING PNEUMONIA--CLINICALLY IMPROVING COPD Plan: CONTINUE ANTIBIOTIC THERAPY PT/OT INCENTIVE SPIROMETRY MAY BE TRANSFERRED OUT OF ICU IF OK WITH PMD
--- NOTE | 2019-03-04 10:10 | RAD ---
Date of service: 03/04/2019 PROCEDURE: CHEST RADIOGRAPH, 1 VIEW HISTORY: PNEUMONIA COMPARISON: 03/02/2019 chest x-ray oval chavarria and CT chest noncontrast 02/25/2019 noted. FINDINGS: LUNGS: The extensive mass like opacity filling the right upper lobe is hree noted. Within this mass there are small lucencies. An extensive right upper lobe pneumonia with or without concomitant obscured mass here is a consideration. Cystic/bullous emphysematous changes are present in each upper lobe. Air-fluid levels within the innumerable pneumatocele is also suggested on the right. PLEURA: No pneumothorax appreciated. Small bilateral pleural effusions are noted these appear similar. CARDIOVASCULAR: No aortic atherosclerotic calcification present. Heart size appears normal. Concomitant mild pulmonary venous congestion suspect. OSSEOUS STRUCTURES: Bilateral shoulder arthrosis VISUALIZED UPPER ABDOMEN: Normal. OTHER FINDINGS: None. IMPRESSION: Extensive masslike pneumonia right upper lobe and patient with background COPD/emphysematous bullous disease. Compared to prior exam no significant interval changes seen. Follow-up to complete resolution is recommended. An underlying concomitant neoplastic mass here is a consideration. Small bilateral pleural effusions. Mild pulmonary venous congestion. Normal heart size.
[2019-03-04 13:06] LABS: ABG ALLEN TEST YES; ARTERIAL BLOOD GAS HCO3 34.8 mmol/L (21-28); ARTERIAL BLOOD GAS O2 SAT 91.1 % (95-98); ARTERIAL BLOOD GAS PCO2 37 mm/Hg (35-45); ARTERIAL BLOOD GAS PH 7.59 (7.35-7.45); ARTERIAL BLOOD GAS PO2 53 mm/Hg (80-100); ARTERIAL BLOOD GAS TCO2 36.6 mmol/L (22-28)
[2019-03-05] MEDS: levoFLOXacin 750 mg in D5W 750 MG/150 ML BAG IVPB SCH (00:10)
[2019-03-05] MEDS: Clindamycin 600mg/50ml NS 600 MG/50 ML BAG IVPB SCH ×3 (00:11→16:16)
[2019-03-05] MEDS: MethylPREDNISolone 40 mg Vial IVP SCH ×3 (02:19→20:00)
[2019-03-05] MEDS: Albuterol-Ipratrop 3 mg / 0.5 (3 ml) UD INH SCH ×6 (03:45→23:28)
[2019-03-05 06:20] LABS: HEMOGLOBIN 8.7 g/dL (12.0-16.0); MEAN CELL VOLUME 87.7 fl (81.0-99.0); MEAN CORPUSCULAR HEMOGLOBIN 29.3 pg (27.0-31.0); MEAN CORPUSCULAR HGB CONC 33.4 g/dL (33.0-37.0); RBC 2.98 Mil/uL (3.80-5.20); RED CELL DISTRIBUTION WIDTH 14.3 % (11.5-14.5); WHITE BLOOD COUNT 15.8 K/uL (4.8-10.8)
[2019-03-05 06:24] LABS: BLOOD UREA NITROGEN 5 mg/dl (7-17); CALCIUM 7.4 mg/dL (8.4-10.2); GFR NON-AFRICAN AMERICAN > 60
[2019-03-05] MEDS: Potassium Chloride 20 mEq ER Tab PO SCH (08:17)
[2019-03-05] MEDS: Enoxaparin 40 mg Syringe SC SCH (10:15)
--- NOTE | 2019-03-05 17:34 | PN ---
DATE: 03/05/2019 SUBJECTIVE: The patient is seen today 03/05/2019. She still needs high-flow oxygen. The patient has right upper lobe necrotizing pneumonia/mass. PHYSICAL EXAMINATION: VITAL SIGNS: Blood pressure 96/66, temperature 99.5, respiratory rate 26, and pulse 93. HEENT: Pupils equal, reactive to light. Normal-appearing mucosa of the conjunctivae, oropharynx and nasal membrane mucosa. NECK: Supple. No JVD. No carotid bruit. No lymph node. No thyromegaly. CHEST AND LUNGS: Bilateral symmetrical expansion. Scattered rhonchi. CARDIOVASCULAR SYSTEM: PMI not localized. S1, S2. No additional sounds. ABDOMEN: Normoactive bowel sounds. No tenderness, no organomegaly. No masses. EXTREMITIES: No cyanosis, no clubbing, no edema. CENTRAL NERVOUS SYSTEM: Alert, awake, oriented x2. No neurological deficit could be appreciated. ASSESSMENT: 1. Right upper lobe necrotizing pneumonia/mass. 2. Chronic obstructive pulmonary disease. 3. Coronary artery disease. PLAN: Continue current medications and antibiotics as per ID and drapery supervisor. Discussed with the patient who agrees to have bronchoscopy. We will continue high-flow oxygen and taper down the FIO2 as tolerated. Rekha Bedoya MD
[2019-03-06] MEDS ORDERED: Sodium Chloride 0.45% 1,000 ML IV SCH (00:45)
[2019-03-06] MEDS: Clindamycin 600mg/50ml NS 600 MG/50 ML BAG IVPB SCH ×3 (00:48→17:22)
[2019-03-06] MEDS: levoFLOXacin 750 mg in D5W 750 MG/150 ML BAG IVPB SCH (00:49)
[2019-03-06] MEDS: Albuterol-Ipratrop 3 mg / 0.5 (3 ml) UD INH SCH ×5 (03:07→19:08)
[2019-03-06] MEDS: MethylPREDNISolone 40 mg Vial IVP SCH ×3 (03:41→21:16)
[2019-03-06 05:20] LABS: HEMOGLOBIN 8.5 g/dL (12.0-16.0); MEAN CELL VOLUME 88.7 fl (81.0-99.0); MEAN CORPUSCULAR HEMOGLOBIN 29.5 pg (27.0-31.0); MEAN CORPUSCULAR HGB CONC 33.3 g/dL (33.0-37.0); RBC 2.89 Mil/uL (3.80-5.20); RED CELL DISTRIBUTION WIDTH 14.3 % (11.5-14.5); WHITE BLOOD COUNT 13.8 K/uL (4.8-10.8)
[2019-03-06 05:36] LABS: BLOOD UREA NITROGEN 7 mg/dl (7-17); CALCIUM 7.4 mg/dL (8.4-10.2); GFR NON-AFRICAN AMERICAN > 60
--- NOTE | 2019-03-06 07:33 | RAD ---
Date of service: 03/06/2019 HISTORY: pneumonia, on high flow O2 COMPARISON: Frontal chest radiograph 03/04/2019. TECHNIQUE: 1 view obtained. FINDINGS: LUNGS: New complete opacification of the right upper lobe is reiterated with limited areas of potential cavitation at the right apex laterally. Reticular markings are also increased throughout the bilateral lung boone suggesting underlying chronic interstitial pulmonary disease. Clinically correlate. Interval opacification has increased as well as likely cavitation. PLEURA: Central trace left pleural effusion. None is seen at the right. No pneumothorax bilaterally. CARDIOVASCULAR: No aortic atherosclerotic calcification present. Normal cardiac size. No pulmonary vascular congestion. OSSEOUS STRUCTURES: No significant abnormalities. VISUALIZED UPPER ABDOMEN: Normal. OTHER FINDINGS: None. IMPRESSION: Complete near complete opacification of the right upper lobe is appreciated with increasing cavitation. Chronic interstitial pulmonary changes reader reiterated throughout the remainder bilaterally. Diminished left pleural effusion with limited residual. None at the right.
--- NOTE | 2019-03-06 08:06 | PN ---
DATE: 03/04/2019 SUBJECTIVE: The patient was seen on 03/04/2019. This is a late entry for daily visit. PHYSICAL EXAMINATION: VITAL SIGNS: She was on high-flow oxygen with O2 saturation 100%, blood pressure was 95/58, temperature 100.1, respiratory rate 26, and pulse 106. HEENT: Pupils equal, reactive to light. Normal-appearing mucosa of the conjunctivae, oropharynx, and nasal membrane mucosa. NECK: Supple. No JVD. No carotid bruit. No lymph node. No thyromegaly. CHEST AND LUNGS: Bilateral symmetrical expansion. Few scattered rhonchi. CARDIOVASCULAR SYSTEM: PMI not localized. S1, S2. No additional sounds. ABDOMEN: Normoactive bowel sounds. No tenderness, no organomegaly. No masses. EXTREMITIES: No cyanosis, no clubbing, no edema. CENTRAL NERVOUS SYSTEM: Alert, awake, oriented x3. No neurological deficit could be appreciated. ASSESSMENT: Right upper lobe necrotizing pneumonia, chronic obstructive pulmonary disease, coronary artery disease. PLAN: Continue current medications and antibiotics. Follow recommendations of radiologist diagnostic and Infectious Disease. Rekha Bedoya MD
[2019-03-06] MEDS: Enoxaparin 40 mg Syringe SC SCH ×2 (08:35→13:29)
[2019-03-06] MEDS: Dextrose 5%/0.9% NS 1,000 ML IV SCH ×2 (10:00→21:00)
[2019-03-06 12:57] LABS: INR 1.6; PROTHROMBIN TIME 17.9 Seconds (9.8-13.1)
[2019-03-06 13:00] LABS: PARTIAL THROMBOPLASTIN TIME 35.4 Seconds (25.6-37.1)
[2019-03-06] MEDS: Potassium Chloride 20 mEq ER Tab PO SCH (13:28)
--- NOTE | 2019-03-06 13:32 | CP.PCM.PN ---
Subjective - Date & Time of Evaluation Date of Evaluation: 03/06/19 Time of Evaluation: 13:39 - Subjective Subjective: PT IS APPREHENSIVE ABOUT HAVING BRONCHOSCOPY PERFORMED BUT EVNTUALLY SIGNED THE CONSENT PROCEDURE WAS HOWEVER ABORTED BECAUSE OF PRONOUNCED SHORTNESS OF BREATH AND ANAESTHESIA EXPRESSING RESERVATIONS[INDICATE THAT PT HAS TO BE INTUBATED DURING PROCEDURE AND SHE REFUSES SAME] Objective - Vital Signs/Intake and Output Vital Signs (last 24 hours): Temp Pulse Resp BP Pulse Ox 98.7 F 94 H 18 94/61 L 96 03/06/19 07:36 03/06/19 10:00 03/06/19 11:20 03/06/19 10:00 03/06/19 10:00 Intake and Output: 03/06/19 03/06/19 06:59 18:59 Intake Total 1440 0 Output Total 1200 Balance 240 0 - Medications Medications: Current Medications Acetaminophen (Tylenol 325mg Tab) 650 mg PO Q4 PRN PRN Reason: Fever >100.4 F Albuterol/Ipratropium (Duoneb 3 Mg/0.5 Mg (3 Ml) Ud) 3 ml INH RQ4 [facility] Last Admin: 03/06/19 11:20 Dose: 3 ml Aspirin (Ecotrin) 81 mg PO DAILY [facility] Last Admin: 03/06/19 08:35 Dose: Not Given Atorvastatin Calcium (Lipitor) 10 mg PO HS [facility] Last Admin: 03/05/19 21:16 Dose: 10 mg Levofloxacin/Dextrose (Levaquin 750mg) 750 mg in 150 mls @ 100 mls/hr IVPB DAILY@0100 [facility]; Protocol Last Admin: 03/06/19 00:49 Dose: 100 mls/hr Clindamycin Phosphate (Cleocin 600mg/50ml Ns) 600 mg in 50 mls @ 50 mls/hr IVPB Q8 [facility]; Protocol Last Admin: 03/06/19 08:34 Dose: 50 mls/hr Dextrose/Sodium Chloride (Dextrose 5%/0.9% Ns 1000 Ml) 1,000 mls @ 80 mls/hr IV .[id number] [facility] Stop: 03/07/19 08:47 Last Admin: 03/06/19 10:00 Dose: 80 mls/hr Methylprednisolone (Solu-Medrol) 20 mg IVP Q8H [facility] Last Admin: 05/03/19 11:50 Dose: 20 mg Ondansetron HCl (Zofran Inj) 4 mg IVP Q4 PRN PRN Reason: Nausea/Vomiting Potassium Chloride (K-Dur 20 Meq Er Tab) 40 meq PO DAILY [facility] Last Admin: 03/05/19 08:17 Dose: 40 meq - Labs Labs: 03/06/19 04:25 03/06/19 04:25 PT 17.9 Seconds (9.8-13.1) H 03/06/19 12:37 INR 1.6 03/06/19 12:37 APTT 35.4 Seconds (25.6-37.1) 03/06/19 12:37 - Constitutional Appears: Cachectic, Chronically Ill - Head Exam Head Exam: ATRAUMATIC, NORMAL INSPECTION, NORMOCEPHALIC - Eye Exam Eye Exam: EOMI, Normal appearance, PERRL Pupil Exam: NORMAL ACCOMODATION, PERRL - ENT Exam ENT Exam: Mucous Membranes Moist, Normal Exam - Neck Exam Neck Exam: Full ROM, Normal Inspection. absent: Lymphadenopathy - Respiratory Exam Respiratory Exam: Decreased Breath Sounds, Prolonged Expiratory Phase, Rales, Respiratory Distress - Cardiovascular Exam Cardiovascular Exam: REGULAR RHYTHM, +S1, +S2. absent: Murmur - GI/Abdominal Exam GI & Abdominal Exam: Soft, Normal Bowel Sounds. absent: Tenderness - Rectal Exam Rectal Exam: NORMAL INSPECTION - Extremities Exam Extremities Exam: Full ROM, Normal Capillary Refill, Normal Inspection. absent: Joint Swelling, Pedal Edema - Back Exam Back Exam: NORMAL INSPECTION - Neurological Exam Neurological Exam: Alert, Awake, CN II-XII Intact, Normal Gait, Oriented x3 - Psychiatric Exam Psychiatric exam: Normal Affect, Normal Mood - Skin Skin Exam: Dry, Intact, Normal Color, Warm Assessment and Plan - Assessment and Plan (Free Text) Assessment: RESPIRATORY DISTRESS PNEUMONIA/R/O MALIGNAMCY COPD EXAC ASHD Plan: REPEAT CT SCAN OF CHEST CANCEL BRONCHOSCOPY CONTINUE CURRENT RX MAY NEED TO RESCHEDULE BRONCHOSCOPY IF RESPIRATORY STATUS IMPROVES
[2019-03-06] MEDS ORDERED: Chlorhexidine Gluconate 1 APPL/PKT TP ONE (14:13)
--- NOTE | 2019-03-06 15:56 | CP.CCUPN ---
CCU Subjective - Physician Review Subjective (Free Text): Patient had finally agreed verbally yesterday to FOB today, but not cleared by Anesthesia for the procedure today. No new symptomology, on HFNC 60% 30 LPM. Afebrile, no fever spikes, BP 90-100s, HR sinus 70-90, RR 20. ROS: No other pertinent negs or positive on 10+ system review. Other PMSFH: All other Nursing and physician documentation reviewed to date; no new pertinent info noted relevant to current medical problems. EXAM- HEENT: no icterus, pupils equal, 3 mm and reactive, no gaze preference, no nystagmus NECK: no visible JVD, supple, carotids equal upstroke bilat/no bruits CHEST: decreased BS L base, diffuse crackles R lung, no wheezes audible HEART: regular, distant, S1S2, no murmur audible, no rubs. ABD: soft, minimal distention, BS not heard, drains intact EXT: ++ edema; no calf tenderness, no palpable cords, distal pulses intact and symmetrical, SCDs on bilat, no cyanosis, no clubbing. NEURO: No focal motor deficits SKIN: no rashes LABS: WBC= 13.8 HGB= 8.5 PLTs = 251K Coags: INR =1.6, PTT normal. 7.59/37/53 yesterday Na= 137 K= 3.8 Cl= 103 HCO3= 30 BUN/Cr= 7/0.3 BS= 94 Procalc = 7.76 on 02/26, now 0.55 CXR: (my interp) extensive RUL infiltrate., bilat bleb disease, hyperinflation bilat. IMPRESSION / MAJOR PROBLEMS NOW: 1. Acute Resp Insuff 2 RUL Pneumonia; r/o CAP versus Atypical organisms: Legionella, Pulm Tb, Aspergillus, Nocardia, other fungal, versus post- obstructive pneumonitis with underlying CA. 2. Azotemia / Dehydration / Hypokalemia 3. Leukopenia / Anemia of chronic Disease 4. h/o CAD PLAN: 1. FOB Procedure cancelled today due to patients refusal for need for prophylactic oral intubation to ensure adequate oxygenation. 2. Quantiferon testing repeated and result pending. 3. Ongoing empiric abx coverage in Pen allergic patient: on Levaquin, Clinda. 4. Repeat CT Chest ordered in the interim. IR eval for diagnostic R thoracentesis if feasible. 5. Ongoing watch for need for MV support. Try 50% VM today as tolerated if SPO2 remains at 92% or better.
--- NOTE | 2019-03-06 16:05 | CT ---
Date of service: 03/06/2019 PROCEDURE: CT Chest without contrast HISTORY: pneumonia/lung mass COMPARISON: 02/25/2019. CT thorax TECHNIQUE: Contiguous axial images were obtained through the chest without intravenous contrast enhancement. Sagittal and coronal reconstructions were performed. Radiation dose: Total exam DLP = 144.13 mGy-cm. This CT exam was performed using one or more of the following dose reduction techniques: Automated exposure control, adjustment of the mA and/or kV according to patient size, and/or use of iterative reconstruction technique. FINDINGS: LUNGS: Greater degree of confluence, consolidation and cavitary/cystic changes affecting the entire right upper lobe. There is relative sparing of the right middle lobe. Progressive consolidative changes affecting the right lower lobe. New left lower lobe infiltrate, dense consolidation with volume loss. Relative sparing of the left upper lobe/lingula. Underlying interstitial disease reticulonodular pattern Bullous formation noted as an underlying process as well. There are no peribronchial or endobronchial lesions nor evidence of significant mucous plugging. MEDIASTINUM: Unremarkable thoracic aorta. No aneurysm. Normal sized heart. Main pulmonary artery unremarkable. No vascular congestion. No lymphadenopathy. Atherosclerotic calcifications identified primarily aortic arch. PLEURA: No pleural fluid. No pneumothorax. BONES: No fracture. No destructive lesion. UPPER ABDOMEN: Multiple hepatic cysts the largest reside in the left lobe. OTHER FINDINGS: None. IMPRESSION: Rapid progression of consolidative changes not only affecting the right upper lobe. Significant alveolar consolidative changes are now seen in both lower lobes. Underlying interstitial lung disease/bullous and emphysematous changes.
[2019-03-06] MEDS ORDERED: Albumin Human 25% (12.5 gm/50 ml) IV ONE (18:30)
[2019-03-07] MEDS: Albuterol-Ipratrop 3 mg / 0.5 (3 ml) UD INH SCH ×7 (00:03→23:36)
[2019-03-07] MEDS: Clindamycin 600mg/50ml NS 600 MG/50 ML BAG IVPB SCH ×3 (00:45→16:42)
[2019-03-07] MEDS: levoFLOXacin 750 mg in D5W 750 MG/150 ML BAG IVPB SCH (01:54)
[2019-03-07] MEDS: MethylPREDNISolone 40 mg Vial IVP SCH ×3 (02:13→18:35)
[2019-03-07] MEDS ORDERED: Sodium Chloride 0.9% 500 ML IV ONE (03:01)
--- NOTE | 2019-03-07 03:16 | PN ---
DATE: 03/06/2019 SUBJECTIVE: The patient is seen today on 03/06/2019. She still needs high-flow oxygen. PHYSICAL EXAMINATION: VITAL SIGNS: Blood pressure 86/52, temperature 99, respiratory rate 18, and pulse 96. HEENT: Pupils are equal and reactive to light. Normal-appearing mucosa of the conjunctivae, oropharynx and nasal membrane mucosa. NECK: Supple. No JVD. No carotid bruits. No lymph node. No thyromegaly. CHEST AND LUNGS: Bilateral symmetrical expansion. Good air exchange on the left side. Decreased air entry right side. CARDIOPULMONARY: PMI not localized. S1 and S2. No additional sounds. ABDOMEN: Normoactive bowel sounds. No tenderness. No organomegaly. No masses. EXTREMITIES: No cyanosis. No clubbing. No edema. THREAD SINGER: Alert, awake, oriented x2. No neurological deficits could be appreciated. ASSESSMENT: 1. Right upper lobe pneumonia, rule out neoplastic process. 2. Chronic obstructive pulmonary disease. 3. Coronary artery disease. PLAN: The patient was for bronchoscopy today but it was not done because of anesthesia, considered to be high risk. IR consult was done and the patient is scheduled for a CT-guided biopsy. We will continue current antibiotics for now. Rekha Bedoya MD
[2019-03-07 06:54] LABS: HEMOGLOBIN 8.3 g/dL (12.0-16.0); MEAN CELL VOLUME 89.1 fl (81.0-99.0); MEAN CORPUSCULAR HEMOGLOBIN 29.4 pg (27.0-31.0); RBC 2.81 Mil/uL (3.80-5.20); RED CELL DISTRIBUTION WIDTH 14.6 % (11.5-14.5); WHITE BLOOD COUNT 9.8 K/uL (4.8-10.8)
[2019-03-07 07:10] LABS: BLOOD UREA NITROGEN 8 mg/dl (7-17); CALCIUM 7.4 mg/dL (8.4-10.2); GFR NON-AFRICAN AMERICAN > 60
--- NOTE | 2019-03-07 08:17 | CP.CCUPN ---
CCU Subjective - Physician Review Events Since Last Encounter (Free Text): Patient awake, on O2 supplement, no fever, no vomiting, no pressors, events reviewed CCU Objective - Vital Signs / Intake & Output Vital Signs (Last 4 hours): Vital Signs Pulse Resp BP Pulse Ox 03/07/19 07:18 12 03/07/19 06:00 80 22 92/56 L 96 03/07/19 04:55 18 Intake and Output (Last 8hrs): Intake & Output 03/06/19 03/07/19 03/07/19 22:59 06:59 14:59 Intake Total 520 1300 160 Output Total 575 750 Balance -55 550 160 Weight 94 lb Intake: IV 270 400 160 Intake, Piggyback 700 Oral 200 Tube Feeding 250 Output: Urine 575 750 Urine, Voided 575 750 Other: # Voids Urine, Voided 1 - Physical Exam Head: Positive for: Atraumatic Pupils: Positive for: PERRL Extroacular Muscles: Positive for: EOMI Conjunctiva: Positive for: Normal. Negative for: Injected Mouth: Positive for: Moist Mucous Membranes Nose (External): Positive for: Atraumatic, Other (On High flow FIO2 100) Respiratory/Chest: Positive for: Good Air Exchange, Rhonchi, Other (crackles in the R side more in the upper area but noted throughout, mild expiratory wheezing in the R side ) Cardiovascular: Positive for: Regular Rate and Rhythm, Normal S1, S2 Abdomen: Positive for: Normal Bowel Sounds. Negative for: Tenderness, Distenti on Upper Extremity: Positive for: Normal Inspection Lower Extremity: Positive for: Normal Inspection Skin: Positive for: Warm, Dry, Pale Psychiatric: Positive for: Alert, Oriented x 3, Normal Insight - Medications Active Medications: Active Medications Generic Name Dose Route Start Last Admin Trade Name Freq PRN Reason Stop Dose Admin Acetaminophen 650 mg 02/26/19 07:00 Tylenol 325mg Tab PO Q4 PRN Fever >100.4 F Albuterol/Ipratropium 3 ml 02/26/19 08:00 03/07/19 07:18 Duoneb 3 Mg/0.5 Mg (3 Ml) Ud INH 3 ml RQ4 [facility]ANY Administration Alprazolam 1 mg 03/06/19 21:45 03/06/19 23:33 Xanax PO 1 mg HS PRN Administration Anxiety Atorvastatin Calcium 10 mg 02/27/19 22:00 03/06/19 21:18 Lipitor PO 10 mg HS DANY Administration Enoxaparin Sodium 40 mg 03/07/19 09:00 Lovenox SC DAILY [facility] Protocol Levofloxacin/Dextrose 750 mg in 150 mls @ 100 mls/hr 02/27/19 01:00 03/07/19 01:54 Levaquin 750mg IVPB 100 mls/hr DAILY@0100 DANY Administration Protocol Clindamycin Phosphate 600 mg in 50 mls @ 50 mls/hr 03/02/19 01:00 03/07/19 00:45 Cleocin 600mg/50ml Ns IVPB 50 mls/hr Q8 [facility]ANY Administration Protocol Dextrose/Sodium Chloride 1,000 mls @ 80 mls/hr 03/06/19 09:00 03/06/19 21:00 Dextrose 5%/0.9% Ns 1000 Ml IV 03/07/19 08:47 80 mls/hr .[id number] [facility] Administration Methylprednisolone 20 mg 03/02/19 19:00 03/07/19 02:13 Solu-Medrol IVP 20 mg Q8H [facility]ANY Administration Ondansetron HCl 4 mg 02/26/19 07:01 Zofran Inj IVP Q4 PRN Nausea/Vomiting Potassium Chloride 40 meq 03/01/19 10:45 03/06/19 13:28 K-Dur 20 Meq Er Tab PO 40 meq DAILY [facility]ANY Administration - Patient Studies Lab Studies: Microbiology Studies 02/26/19 13:50 Mycobacterial Culture - Preliminary Unknown - Sputum 02/26/19 17:00 Mycobacterial Culture - Preliminary Unknown - Sputum 02/26/19 13:50 Mycobacterial Culture - Preliminary Unknown - Sputum Lab Studies 03/07/19 03/07/19 03/06/19 Range/Units 04:35 04:35 12:37 WBC 9.8 (4.8-10.8) K/uL RBC 2.81 L (3.80-5.20) Mil/uL Hgb 8.3 L (12.0-16.0) g/dL Hct 25.0 L (34.0-47.0) % MCV 89.1 (81.0-99.0) fl MCH 29.4 (27.0-31.0) pg MCHC 33.0 (33.0-37.0) g/dL RDW 14.6 H (11.5-14.5) % Plt Count 283 (130-400) K/uL PT 17.9 H (9.8-13.1) Seconds INR 1.6 APTT 35.4 (25.6-37.1) Seconds Sodium 139 (132-148) mmol/l Potassium 4.0 (3.6-5.0) MMOL/L Chloride 106 (98-107) mmol/L Carbon Dioxide 28 (22-30) mmol/L Anion Gap 9 L (10-20) BUN 8 (7-17) mg/dl Creatinine 0.3 L (0.7-1.2) mg/dl Est GFR ( Amer) > 60 Est GFR (Non-Af Amer) > 60 Random Glucose 89 (65-105) mg/dL Calcium 7.4 L (8.4-10.2) mg/dL TB Test (QFT) Nil IU/mL TB Test Mitogen - Nil IU/mL TB Test Antigen - Nil IU/mL TB Test TB - Nil IU/mL TB Test (QFT) (Negative) 03/04/19 Range/Units 04:38 WBC (4.8-10.8) K/uL RBC (3.80-5.20) Mil/uL Hgb (12.0-16.0) g/dL Hct (34.0-47.0) % MCV (81.0-99.0) fl MCH (27.0-31.0) pg MCHC (33.0-37.0) g/dL RDW (11.5-14.5) % Plt Count (130-400) K/uL PT (9.8-13.1) Seconds INR APTT (25.6-37.1) Seconds Sodium (132-148) mmol/l Potassium (3.6-5.0) MMOL/L Chloride (98-107) mmol/L Carbon Dioxide (22-30) mmol/L Anion Gap (10-20) BUN (7-17) mg/dl Creatinine (0.7-1.2) mg/dl Est GFR ( Amer) Est GFR (Non-Af Amer) Random Glucose (65-105) mg/dL Calcium (8.4-10.2) mg/dL TB Test (QFT) Nil 0.01 IU/mL TB Test Mitogen - Nil 0.03 IU/mL TB Test Antigen - Nil 0.01 IU/mL TB Test TB - Nil 0.00 IU/mL TB Test (QFT) Indeterminate H (Negative) Laboratory Results - last 24 hr 03/04/19 03/06/19 03/07/19 04:38 12:37 04:35 WBC 9.8 RBC 2.81 L Hgb 8.3 L Hct 25.0 L MCV 89.1 MCH 29.4 MCHC 33.0 RDW 14.6 H Plt Count 283 PT 17.9 H INR 1.6 APTT 35.4 Sodium Potassium Chloride Carbon Dioxide Anion Gap BUN Creatinine Est GFR ( Amer) Est GFR (Non-Af Amer) Random Glucose Calcium TB Test (QFT) Nil 0.01 TB Test Mitogen - Nil 0.03 TB Test Antigen - Nil 0.01 TB Test TB - Nil 0.00 TB Test (QFT) Indeterminate H 03/07/19 04:35 WBC RBC Hgb Hct MCV MCH MCHC RDW Plt Count PT INR APTT Sodium 139 Potassium 4.0 Chloride 106 Carbon Dioxide 28 Anion Gap 9 L BUN 8 Creatinine 0.3 L Est GFR ( Amer) > 60 Est GFR (Non-Af Amer) > 60 Random Glucose 89 Calcium 7.4 L TB Test (QFT) Nil TB Test Mitogen - Nil TB Test Antigen - Nil TB Test TB - Nil TB Test (QFT) Radiology Impressions: Radiology Impressions Chest CT 03/06/19 13:21 IMPRESSION: Rapid progression of consolidative changes not only affecting the right upper lobe. Significant alveolar consolidative changes are now seen in both lower lobes. Underlying interstitial lung disease/bullous and emphysematous changes. Critical Care Progress Note - Nutrition Nutrition: Nutrition Category Date Time Status Heart Healthy Diet [DIET] Diets 03/06/19 Lunch Active Assessment/Plan - Assessment and Plan (Free Text) Assessment: A/P Respiratory insufficiency, ?pneumonia, R/O malignancy, azotemia, anemia, pleural effusion, h/o CAD - Continue meds - O2 supplement - Follow up cultures - Pulmonary, IR follow up
[2019-03-07] MEDS: Enoxaparin 40 mg Syringe SC SCH (08:31)
[2019-03-07] MEDS: Potassium Chloride 20 mEq ER Tab PO SCH (08:31)
--- NOTE | 2019-03-07 09:16 | CP.PCM.PN ---
Subjective - Date & Time of Evaluation Date of Evaluation: 03/07/19 Time of Evaluation: 09:22 - Subjective Subjective: O2 SAT-95% ON HIGH FLOW SOB SLIGHTLY IMPROVED STILL COUGHING CT SCAN OF CHEST RESULTS REVIEWED PT REFUSES INTUBATION FOR PURPOSES OF BRONCHOSCOPY ANAESTHESIA WILL NOT HAVE PROCEDURE PERFORMED WITHOUT INTUBATION AND VENTILATION BECAUSE OF PT'S POOR PULMONARY RESERVE Objective - Vital Signs/Intake and Output Vital Signs (last 24 hours): Temp Pulse Resp BP Pulse Ox 98.4 F 84 18 91/57 L 97 03/07/19 08:00 03/07/19 08:00 03/07/19 08:00 03/07/19 08:00 03/07/19 08:00 Intake and Output: 03/07/19 03/07/19 06:59 18:59 Intake Total 1470 160 Output Total 975 Balance 495 160 - Medications Medications: Current Medications Acetaminophen (Tylenol 325mg Tab) 650 mg PO Q4 PRN PRN Reason: Fever >100.4 F Albuterol/Ipratropium (Duoneb 3 Mg/0.5 Mg (3 Ml) Ud) 3 ml INH RQ4 [facility] Last Admin: 03/07/19 07:18 Dose: 3 ml Alprazolam (Xanax) 1 mg PO HS PRN PRN Reason: Anxiety Last Admin: 03/06/19 23:33 Dose: 1 mg Atorvastatin Calcium (Lipitor) 10 mg PO HS [facility] Last Admin: 03/06/19 21:18 Dose: 10 mg Enoxaparin Sodium (Lovenox) 40 mg SC DAILY [facility]; Protocol Last Admin: 03/07/19 08:31 Dose: 40 mg Levofloxacin/Dextrose (Levaquin 750mg) 750 mg in 150 mls @ 100 mls/hr IVPB DAILY@0100 [facility]; Protocol Last Admin: 03/07/19 01:54 Dose: 100 mls/hr Clindamycin Phosphate (Cleocin 600mg/50ml Ns) 600 mg in 50 mls @ 50 mls/hr IVPB Q8 [facility]; Protocol Last Admin: 03/07/19 08:30 Dose: 50 mls/hr Methylprednisolone (Solu-Medrol) 20 mg IVP Q8H [facility] Last Admin: 03/07/19 02:13 Dose: 20 mg Ondansetron HCl (Zofran Inj) 4 mg IVP Q4 PRN PRN Reason: Nausea/Vomiting Potassium Chloride (K-Dur 20 Meq Er Tab) 40 meq PO DAILY [facility] Last Admin: 03/07/19 08:31 Dose: 40 meq - Labs Labs: 03/07/19 04:35 03/07/19 04:35 PT 17.9 Seconds (9.8-13.1) H 03/06/19 12:37 INR 1.6 03/06/19 12:37 APTT 35.4 Seconds (25.6-37.1) 03/06/19 12:37 - Constitutional Appears: Cachectic, Chronically Ill - Head Exam Head Exam: ATRAUMATIC, NORMAL INSPECTION, NORMOCEPHALIC - Eye Exam Eye Exam: EOMI, Normal appearance, PERRL Pupil Exam: NORMAL ACCOMODATION, PERRL - ENT Exam ENT Exam: Mucous Membranes Moist, Normal Exam - Neck Exam Neck Exam: Full ROM, Normal Inspection. absent: Lymphadenopathy - Respiratory Exam Respiratory Exam: Decreased Breath Sounds, Prolonged Expiratory Phase, Rales, Wheezes Additional comments: ON HIGH FLOW 02 - Cardiovascular Exam Cardiovascular Exam: REGULAR RHYTHM, +S1, +S2. absent: Murmur - GI/Abdominal Exam GI & Abdominal Exam: Soft, Normal Bowel Sounds. absent: Tenderness - Rectal Exam Rectal Exam: NORMAL INSPECTION - Extremities Exam Extremities Exam: Full ROM, Normal Capillary Refill, Normal Inspection. absent: Joint Swelling, Pedal Edema - Back Exam Back Exam: NORMAL INSPECTION - Neurological Exam Neurological Exam: Alert, Awake, CN II-XII Intact, Normal Gait, Oriented x3 - Psychiatric Exam Psychiatric exam: Normal Affect, Normal Mood - Skin Skin Exam: Dry, Intact, Normal Color, Warm Assessment and Plan - Assessment and Plan (Free Text) Assessment: ACUTE RESPIRATORY FAILURE-PRESENT ON ADMISSION PNEUMONIA--R/O MALIGNANCY ACUTE EXAC OF COPD Plan: CONTINUE CURRENT THERAPY WILL OBTAIN SPUTUM FOR CYTOLOGY RECONSIDER BRONCHOSCOPY IF PT AGREES WITH INTUBATION
--- NOTE | 2019-03-07 12:45 | CARD ---
APPROVED REPORT Date of service: 03/07/2019 EXAM: Two-dimensional and M-mode echocardiogram with Doppler and color Doppler. Other Information Quality : GoodRhythm : NSR INDICATION 2D DIMENSIONS IVSd0.68 (0.7-1.1cm)LVDd3.66 (3.9-5.9cm) LVOT Diameter1.80 (1.8-2.4cm)PWd0.99 (0.7-1.1cm) IVSs1.16 (0.8-1.2cm)LVDs2.54 (2.5-4.0cm) FS (%) 30.6 %PWs0.90 (0.8-1.2cm) SV51.80 mlLVEF (%)64.7 (>50%) CO4.27 L/min M-Mode DIMENSIONS Left Atrium (MM)3.55 (2.5-4.0cm)Aortic Root3.27 (2.2-3.7cm) Aortic Cusp Exc.1.90 (1.5-2.0cm) Aortic Valve AoV Peak Izplgudc367.0cm/sAoV VTI24.3cmAO Peak GR.7mmHg LVOT Peak Pjtojapg306.5cm/sLVOT VTI22.29cmAO Mean GR.4mmHg GEORGINA (VMAX)1.54ky5WCC (VTI)1.57cm2 Mitral Valve MV E Kbkytrek37.1cm/sMV E Peak Gr.51mmHgMV DECEL [id number] MV A Sylyxzmw76.0cm/sMV ZCN63hpV/A ratio1.2 MVA (PHT)4.11cm2 TDI Lateral E' Peak V13.93cm/sMedial E' Peak V10.35cm/sE/Lateral E'5.9 E/Medial E'7.9 Pulmonary Valve PV Peak Rjsxocpj92.8cm/s Tricuspid Valve TR Peak Gjaftkpa362ki/sTR Peak Gr.57lzUoDIPU84toSx LEFT VENTRICLE The left ventricle is normal size. There is normal left ventricular wall thickness. The left ventricular systolic function is normal. The estimated ejection fraction is 55-60% No regional wall motion abnormalities noted.. The left ventricular diastolic function is normal. No left ventricle thrombus noted on this study. There is no ventricular septal defect visualized. There is no left ventricular aneurysm. There is no mass noted in the left ventricle. RIGHT VENTRICLE The right ventricle is normal size. There is normal right ventricular wall thickness. The right ventricular systolic function is normal. ATRIA The left atrium size is normal. The right atrium size is normal. The interatrial septum is intact with no evidence for an atrial septal defect. AORTIC VALVE The aortic valve is normal in structure. No aortic regurgitation is present. There is no aortic valvular stenosis. There is no aortic valvular vegetation. MITRAL VALVE The mitral valve is normal in structure. There is no evidence of mitral valve prolapse. There is no mitral valve stenosis. There is mild mitral valve regurgitation noted. TRICUSPID VALVE The tricuspid valve is normal in structure. There is mild tricuspid valve regurgitation noted. RVSP is calculated at 34 mm Hg. There is no tricuspid valve prolapse or vegetation. There is no tricuspid valve stenosis. PULMONIC VALVE The pulmonary valve is normal in structure. There is no pulmonic valvular regurgitation. There is no pulmonic valvular stenosis. GREAT VESSELS The aortic root is normal in size. The ascending aorta is normal in size. The pulmonary artery is normal. The IVC is normal in size and collapses >50% with inspiration. PERICARDIAL EFFUSION There is no pericardial effusion. There is no pleural effusion. <Conclusion> The estimated ejection fraction is 55-60% The left ventricular diastolic function is normal. The left atrium size is normal. There is mild mitral valve regurgitation noted. There is mild tricuspid valve regurgitation noted. RVSP is calculated at 34 mm Hg. The IVC is normal in size and collapses >50% with inspiration.
--- NOTE | 2019-03-07 22:32 | PN ---
DATE: 03/07/2019 DAILY PROGRESS NOTE SUBJECTIVE: The patient is seen today, 03/07/2019. She is certainly in need for high-flow oxygen. Bronchoscopy was not done so far. PHYSICAL EXAMINATION: VITAL SIGNS: Blood pressure 88/57, temperature 99.1, respiratory rate 22, and pulse 88. HEENT: Pupils are equal and reactive to light. Normal-appearing mucosa of the conjunctivae, oropharynx and nasal membrane mucosa. NECK: Supple. No JVD. No carotid bruits. No lymph node. No thyromegaly. CHEST AND LUNGS: Bilateral symmetrical expansion. Good air exchange on the left side but decreased air entry on the right side. CARDIOVASCULAR SYSTEM: PMI not localized. S1 and S2. No additional sounds. ABDOMEN: Normoactive bowel sounds. No tenderness. No organomegaly. No masses. EXTREMITIES: No cyanosis. No clubbing. No edema. CENTRAL NERVOUS SYSTEM: Alert, awake, oriented x2. No neurological deficits could be appreciated. ASSESSMENT: 1. Right upper lobe pneumonia versus mass. 2. History of chronic obstructive pulmonary disease. 3. Coronary artery disease. PLAN: The patient is for possible bronchoscopy at bedside as we discussed with associate doctor today. Continue current antibiotics. Rekha Bedoya MD
[2019-03-08] MEDS: Clindamycin 600mg/50ml NS 600 MG/50 ML BAG IVPB SCH ×3 (01:29→17:57)
[2019-03-08] MEDS: levoFLOXacin 750 mg in D5W 750 MG/150 ML BAG IVPB SCH ×2 (01:30→11:05)
[2019-03-08] MEDS ORDERED: Sodium Chloride 0.9% 500 ML IV ONE (02:33)
[2019-03-08] MEDS ORDERED: MethylPREDNISolone 40 mg Vial IVP ONE (03:00)
[2019-03-08] MEDS: Albuterol-Ipratrop 3 mg / 0.5 (3 ml) UD INH SCH ×6 (04:47→23:08)
[2019-03-08 06:31] LABS: HEMOGLOBIN 8.2 g/dL (12.0-16.0); MEAN CELL VOLUME 89.2 fl (81.0-99.0); MEAN CORPUSCULAR HEMOGLOBIN 29.1 pg (27.0-31.0); MEAN CORPUSCULAR HGB CONC 32.6 g/dL (33.0-37.0); RBC 2.82 Mil/uL (3.80-5.20); RED CELL DISTRIBUTION WIDTH 14.6 % (11.5-14.5); WHITE BLOOD COUNT 12.4 K/uL (4.8-10.8)
[2019-03-08 06:37] LABS: BLOOD UREA NITROGEN 11 mg/dl (7-17); GFR NON-AFRICAN AMERICAN > 60
[2019-03-08] MEDS: Enoxaparin 40 mg Syringe SC SCH (09:54)
[2019-03-08] MEDS: Potassium Chloride 20 mEq ER Tab PO SCH (09:54)
[2019-03-08] MEDS ORDERED: levoFLOXacin 750 mg in D5W 150 ML BAG IVPB SCH (10:00)
--- NOTE | 2019-03-08 11:51 | CP.PCM.PN ---
Subjective - Date & Time of Evaluation Date of Evaluation: 03/08/19 Time of Evaluation: 11:53 - Subjective Subjective: PT AND SISTER INDICATE THAT SHE DID NOT REFUSE TO BE INTUBATED FOR BRONCHOSCOPY BUT THAT ANAESTHESIA WAS RELUCTANT TO HAVE PROCEDURE PERFORMED BECAUSE OF HER POOR PULMONARY RESERVE SHE IS WILLING TO UNDERGO PROCEDURE FOR DEFINITIVE DX Objective - Vital Signs/Intake and Output Vital Signs (last 24 hours): Temp Pulse Resp BP Pulse Ox 98.5 F 88 11 L 91/60 L 97 03/08/19 07:17 03/08/19 10:00 03/08/19 10:00 03/08/19 10:00 03/08/19 10:00 Intake and Output: 03/08/19 03/08/19 06:59 18:59 Intake Total 750 310 Output Total 800 400 Balance -50 -90 - Medications Medications: Current Medications Acetaminophen (Tylenol 325mg Tab) 650 mg PO Q4 PRN PRN Reason: Fever >100.4 F Albuterol/Ipratropium (Duoneb 3 Mg/0.5 Mg (3 Ml) Ud) 3 ml INH RQ4 DANY Last Admin: 03/08/19 11:03 Dose: 3 ml Alprazolam (Xanax) 1 mg PO HS PRN PRN Reason: Anxiety Last Admin: 03/07/19 21:49 Dose: 1 mg Atorvastatin Calcium (Lipitor) 10 mg PO HS DANY Last Admin: 03/07/19 21:49 Dose: 10 mg Enoxaparin Sodium (Lovenox) 40 mg SC DAILY DANY; Protocol Last Admin: 03/08/19 09:54 Dose: 40 mg Clindamycin Phosphate (Cleocin 600mg/50ml Ns) 600 mg in 50 mls @ 50 mls/hr IVPB Q8 DANY; Protocol Last Admin: 03/08/19 09:53 Dose: 50 mls/hr Levofloxacin/Dextrose (Levaquin 750mg) 750 mg in 150 mls @ 100 mls/hr IVPB DAILY DANY Ondansetron HCl (Zofran Inj) 4 mg IVP Q4 PRN PRN Reason: Nausea/Vomiting Potassium Chloride (K-Dur 20 Meq Er Tab) 40 meq PO DAILY DANY Last Admin: 03/08/19 09:54 Dose: 40 meq - Labs Labs: 03/08/19 04:30 03/08/19 04:30 PT 17.9 Seconds (9.8-13.1) H 03/06/19 12:37 INR 1.6 03/06/19 12:37 APTT 35.4 Seconds (25.6-37.1) 03/06/19 12:37 - Constitutional Appears: Cachectic, Chronically Ill - Head Exam Head Exam: ATRAUMATIC, NORMAL INSPECTION, NORMOCEPHALIC - Eye Exam Eye Exam: EOMI, Normal appearance, PERRL Pupil Exam: NORMAL ACCOMODATION, PERRL - ENT Exam ENT Exam: Mucous Membranes Moist, Normal Exam - Neck Exam Neck Exam: Full ROM, Normal Inspection. absent: Lymphadenopathy - Respiratory Exam Respiratory Exam: Decreased Breath Sounds Additional comments: ON HIGH FLOW O2 - Cardiovascular Exam Cardiovascular Exam: REGULAR RHYTHM, +S1, +S2. absent: Murmur - GI/Abdominal Exam GI & Abdominal Exam: Soft, Normal Bowel Sounds. absent: Tenderness - Rectal Exam Rectal Exam: NORMAL INSPECTION - Extremities Exam Extremities Exam: Full ROM, Normal Capillary Refill, Normal Inspection. absent: Joint Swelling, Pedal Edema - Back Exam Back Exam: NORMAL INSPECTION - Neurological Exam Neurological Exam: Alert, Awake, CN II-XII Intact, Normal Gait, Oriented x3 - Psychiatric Exam Psychiatric exam: Normal Affect, Normal Mood - Skin Skin Exam: Dry, Intact, Normal Color, Warm Assessment and Plan - Assessment and Plan (Free Text) Assessment: PNEUMONIA RESPIRATORY FAILURE Plan: FOR IR EVALUATION IN AM CONSIDER RESCHEDULING BRONCHOSCOPY--WILL DISCUS WITH IR AND ANAESTHESIA
--- NOTE | 2019-03-08 23:18 | PN ---
DATE: 03/08/2019 LOCATION: The patient in ICU bed 433. TIME SPENT: 35 minutes. SUBJECTIVE: The patient is seen and evaluated at the bedside. Past medical, surgical, family and social history reviewed. The patient is a 63-year-old female with centrilobular emphysema, admitted with shortness of breath, oxygen desaturation, noted to have right upper lobe consolidation likely post-obstructive pneumonia versus community acquired . Sputum for AFB x3 negative. Initially started on anti-TB medications, subsequently discontinued. Currently, on high-flow oxygen being weaned off. Seen by Dr. Hernandez, rescheduling for a tissue biopsy. Overnight afebrile, normotensive, low to normal systolic blood pressure, off pressors, not needed as pressure has been steady in the range. PHYSICAL EXAMINATION: VITAL SIGNS: Temperature 98.5, heart rate 88, blood pressure 91/60, mean arterial pressure 70, respiratory rate 11-18 thoracoabdominal, saturation 97% on 30 liters with 60% FiO2. INTAKE AND OUTPUT: Intake 1524, output 1400, positive balance of 124. Urine output 1400. Weight 96 pounds. HEAD, EYES, EARS, NOSE AND THROAT: Pupils are reactive. Conjunctivae pink. Sclerae are white. NECK: Supple. Trachea slight deviation to the right. LUNGS: Expiration prolonged, diminished in intensity. HEART: Rhythm regular. S1, S2 normal. ABDOMEN: Bowel sounds present. Soft. Liver and spleen not palpable. Bladder not distended. EXTREMITIES: No clubbing, cyanosis. NEUROLOGIC: Examination nonfocal. CURRENT MEDICATIONS: Levofloxacin 750 mg IV daily, clindamycin 600 mg IV daily, Tylenol 650 every four hours p.r.n., DuoNeb 3 mL via nebulizer every 4 hours, Xanax 1 mg p.o. at bedtime, Lipitor 10 mg daily, Zofran 4 mg IV every 4 hours p.r.n. potassium supplement. LABORATORY DATA: WBC 12.4, hemoglobin 8.2, hematocrit 25.2, platelet count of 356. PT 17.9, INR 1.6, PTT 35.4. ABG; pH 7.59, pCO2 of 37, pO2 of 53, saturation 91.1 on 60% on 30 liters high-flow nasal oxygen. SMA-7; sodium 139, potassium 3.8 chloride 103, CO2 of 28, blood urea nitrogen 11, creatinine 0.3, random glucose 154, calcium 8. Urinalysis negative. Alcohol level less than 10. Serology; HIV nonreactive. Legionella pneumonia antigen negative. QuantiFERON-TB test indeterminate. Urine culture positive for yeast. Sputum AFB X3 negative. Nasal smear MRSA negative. CT chest done on 03/06/2019 shows rapid progression of consolidative changes affecting the right upper lobe, also alveolar consolidation in both lower lobes, underlying interstitial lung disease/bolus and emphysematous changes. IMPRESSION AND PLAN: Neurologic: Alert and awake. Follows commands appropriate. Reports to willingness to undergo bronchoscopy under general endotracheal tube anesthesia. We will discuss with Dr. Hernandez planning to arrange with the anesthesiologist. Pulmonary: Hypoxic respiratory failure; chronic obstructive pulmonary disease/emphysema; interstitial lung disease; consolidation of the right upper lobe, likely community-acquired. Question aspiration given bilateral involvement, rule out malignancy. Infectious Disease: Right upper lobe consolidation, on antibiotic, improved but still with significant respiratory insufficiency, likely related to chronic obstructive pulmonary disease and interstitial lung disease. CARDIAC: History of coronary artery disease, status post stent; on aspirin; on Lovenox. We will hold Lovenox as per Dr. Hernandez and nothing per mouth from midnight for possible procedure tomorrow. Hematology: Mild leukocytosis, improved considerably from before, on steroid. RENAL: No electrolyte abnormalities. BUN and creatinine stable. ENDOCRINOLOGY: Stable. Keep the head of bed 30 degrees up, aspiration questions. Out of bed to chair as tolerated. Moses Herrera MD MTDD
[2019-03-09] MEDS: Clindamycin 600mg/50ml NS 600 MG/50 ML BAG IVPB SCH ×3 (00:12→16:27)
[2019-03-09] MEDS: Albuterol-Ipratrop 3 mg / 0.5 (3 ml) UD INH SCH ×6 (03:58→23:14)
[2019-03-09 05:59] LABS: HEMOGLOBIN 8.4 g/dL (12.0-16.0); MEAN CELL VOLUME 88.2 fl (81.0-99.0); MEAN CORPUSCULAR HEMOGLOBIN 28.9 pg (27.0-31.0); MEAN CORPUSCULAR HGB CONC 32.8 g/dL (33.0-37.0); RBC 2.91 Mil/uL (3.80-5.20); RED CELL DISTRIBUTION WIDTH 14.8 % (11.5-14.5); WHITE BLOOD COUNT 12.7 K/uL (4.8-10.8)
[2019-03-09 06:19] LABS: ALB/GLOB RATIO 0.9 (1.0-2.1); ALT/SGPT 97 U/L (9-52); AST/SGOT 86 U/L (14-36); BLOOD UREA NITROGEN 11 mg/dl (7-17); CALCIUM 8.7 mg/dL (8.4-10.2); GFR NON-AFRICAN AMERICAN > 60
--- NOTE | 2019-03-09 07:56 | RAD ---
Date of service: 03/09/2019 HISTORY: PNEUMONIA COMPARISON: Portable chest 03/06/2019. TECHNIQUE: 1 view obtained. FINDINGS: LUNGS: A COPD pattern reiterated with extensive opacification of the entire right upper lobe including cavitary changes. Apparent resolution of prior left basilar atelectasis or infiltrate with linear atelectasis or fibrosis noted in the retrocardiac left lower lobe. PLEURA: No pneumothorax bilaterally. No right pleural effusion trace left pleural effusion evident. CARDIOVASCULAR: No aortic atherosclerotic calcification present. Normal cardiac size. No pulmonary vascular congestion. OSSEOUS STRUCTURES: No significant abnormalities. VISUALIZED UPPER ABDOMEN: Normal. OTHER FINDINGS: None. IMPRESSION: Improved aeration in the left base including retrocardiac left lower lobe with only limited linear atelectasis or fibrosis remaining. Trace of pleural effusion evident. No interval change in dense right upper lobe infiltrate with cavitary changes. COPD changes underlying bilateral lung boone reiterated.
[2019-03-09 09:29] LABS: INR 1.4; PROTHROMBIN TIME 15.9 Seconds (9.8-13.1)
--- NOTE | 2019-03-09 09:30 | CP.PCM.PN ---
Subjective - Date & Time of Evaluation Date of Evaluation: 03/09/19 Time of Evaluation: 09:30 - Subjective Subjective: STILL COUGHING UP MUCOID SPUTUM Objective - Vital Signs/Intake and Output Vital Signs (last 24 hours): Temp Pulse Resp BP Pulse Ox 98.5 F 78 16 90/57 L 98 03/09/19 07:52 03/09/19 07:52 03/09/19 07:54 03/09/19 07:52 03/09/19 07:52 Intake and Output: 03/09/19 03/09/19 06:59 18:59 Intake Total 50 Output Total 780 Balance -730 - Medications Medications: Current Medications Acetaminophen (Tylenol 325mg Tab) 650 mg PO Q4 PRN PRN Reason: Fever >100.4 F Albuterol/Ipratropium (Duoneb 3 Mg/0.5 Mg (3 Ml) Ud) 3 ml INH RQ4 DANY Last Admin: 03/09/19 07:54 Dose: 3 ml Alprazolam (Xanax) 1 mg PO HS PRN PRN Reason: Anxiety Last Admin: 03/07/19 21:49 Dose: 1 mg Atorvastatin Calcium (Lipitor) 10 mg PO HS DANY Last Admin: 03/08/19 21:18 Dose: 10 mg Clindamycin Phosphate (Cleocin 600mg/50ml Ns) 600 mg in 50 mls @ 50 mls/hr IVPB Q8 DANY; Protocol Last Admin: 03/09/19 00:12 Dose: 50 mls/hr Levofloxacin/Dextrose (Levaquin 750mg) 750 mg in 150 mls @ 100 mls/hr IVPB DAILY COUNTS INCLUDE 234 BEDS AT THE [facility] Last Admin: 03/08/19 11:05 Dose: 100 mls/hr Ondansetron HCl (Zofran Inj) 4 mg IVP Q4 PRN PRN Reason: Nausea/Vomiting Potassium Chloride (K-Dur 20 Meq Er Tab) 40 meq PO DAILY COUNTS INCLUDE 234 BEDS AT THE [facility] Last Admin: 03/08/19 09:54 Dose: 40 meq Prednisone (Prednisone Tab) 40 mg PO DAILY COUNTS INCLUDE 234 BEDS AT THE [facility] - Labs Labs: 03/09/19 05:15 03/09/19 05:15 PT 17.9 Seconds (9.8-13.1) H 03/06/19 12:37 INR 1.6 03/06/19 12:37 APTT 35.4 Seconds (25.6-37.1) 03/06/19 12:37 - Constitutional Appears: Cachectic - Head Exam Head Exam: ATRAUMATIC, NORMAL INSPECTION, NORMOCEPHALIC - Eye Exam Eye Exam: EOMI, Normal appearance, PERRL Pupil Exam: NORMAL ACCOMODATION, PERRL - ENT Exam ENT Exam: Mucous Membranes Moist, Normal Exam - Neck Exam Neck Exam: Full ROM, Normal Inspection. absent: Lymphadenopathy - Respiratory Exam Respiratory Exam: Prolonged Expiratory Phase, Rales, Wheezes Additional comments: ON HIGH FLOW O2 - Cardiovascular Exam Cardiovascular Exam: REGULAR RHYTHM, +S1, +S2. absent: Murmur - GI/Abdominal Exam GI & Abdominal Exam: Soft, Normal Bowel Sounds. absent: Tenderness - Rectal Exam Rectal Exam: NORMAL INSPECTION - Extremities Exam Extremities Exam: Full ROM, Normal Capillary Refill, Normal Inspection. absent: Joint Swelling, Pedal Edema - Back Exam Back Exam: NORMAL INSPECTION - Neurological Exam Neurological Exam: Alert, Awake, CN II-XII Intact, Normal Gait, Oriented x3 - Psychiatric Exam Psychiatric exam: Normal Affect, Normal Mood - Skin Skin Exam: Dry, Intact, Normal Color, Warm Assessment and Plan - Assessment and Plan (Free Text) Assessment: COPD EXAC PNEUMONIA Plan: PT NOW REFUSES LUNG BIOPSY BY IR/BRONCHOSCOPY BECAUSE HER FAMILY FRIEND WHO IS A PHYSICIAN TOLD HER NOT TO WILL CONTINUE IV ANTIBIOTIC RX
[2019-03-09] MEDS: levoFLOXacin 750 mg in D5W 750 MG/150 ML BAG IVPB SCH (11:24)
--- NOTE | 2019-03-09 12:52 | PCM.PCON ---
History of Present Illness - History of Present Illness History of Present Illness: Patient is a 63 year old female who came to the ED on 02/26 with cough x1 month associated with fevers and daily chest pains. In ER, Patient was found to be hypoxic, hypotensive, and with elevated lactic acid levels. She was then admitted to ICU. She is pending a bronchoscopy for tissue biopsy PMH: CAD s/p PCI, HTN Soc hx: Former smoker (still vapes), denies etoh and drug use Fam hx: Unknown 02/26 CT chest: Severe emphysema, right upper lobe pneumonia 03/[address]: Rapid progression of consolidative changes Review of Systems - Respiratory Respiratory: Dyspnea, Dyspnea on Exertion Physical Exam - Constitutional Appears: No Acute Distress, Chronically Ill - Head Exam Head Exam: ATRAUMATIC, NORMAL INSPECTION - Eye Exam Eye Exam: Normal appearance, PERRL - ENT Exam ENT Exam: Mucous Membranes Moist - Respiratory Exam Respiratory Exam: Decreased Breath Sounds Additional comments: on high flow O2 - Cardiovascular Exam Cardiovascular Exam: REGULAR RHYTHM - Neurological Exam Neurological exam: Alert, Oriented x3 - Psychiatric Exam Psychiatric exam: Anxious - Skin Skin Exam: Dry, Pallor, Warm Palliative Care Assessment - Modified MRC Dyspnea Scale Modified MRC Dyspnea Scale: Too breathless to leave the house,or breathless dressing or undressing Grade: 5 - Pain Scale Pain Score: 0 (Reports no pain at this time ) Pain Scale Used: Numeric - Jonathan Scale Sensory Perception: No Impairment Moisture: Rarely Moist Activity: Chairfast Mobility: Slightly Impaired Nutrition: Probably Inadequate Friction & Shear: No Apparent Problem Total Score - Skin Risk Assessment: 18 - Psychosocial Distress Patient screened for psychosocial distress: Yes Palliative Care - Goals Goal(s) of care: I reviewed medical records, diagnostic tests, examined and interviewed the patient and her sister Dorota at the bedside. Palliative Performance Scale 40% Goals of Care discussed with patient. She verbalized understanding of her current medical condition. She states that she is agreeable to all workup and procedures as it relates to her condition and says she did not refuse any procedures. She would like full treatment at this time. She states that if ever she loses her decision making capacity, she designates her sister Dorota Rico ([phone]) as her decision maker. Code Status: Full Code Treatment Goal(s): Improve ADLs, Improve quality of life End of life care discussed: Yes Assessment & Plan - Assessment and Plan (Free Text) Assessment: Impression Respiratory Failure Anxiety Decrease Mobility Needs continued goals of Care planning Suggestion Consider rescheduling bronchoscopy if patient agreeable continue xanax 1mg continue PT, Assist with ambulation Will continue Goals of care discussions as needed Palliative Care will remain on board as needed Time spent with patient 55 min
[2019-03-09] MEDS ORDERED: Midazolam 2 MG/2 ML VIAL ONE (13:03)
[2019-03-09] MEDS ORDERED: Lidocaine 1% Inj (20ml) ONE ×2 (13:20→13:22)
--- NOTE | 2019-03-09 13:33 | PCM.SURG1 ---
Surgeon's Initial Post Op Note - Surgeon's Notes Surgeon: Kee Howard MD [employer] Supervisor: NONE Type of Anesthesia: IV Sedation Pre-Operative Diagnosis: Lung consolidation/mass Operative Findings: Right upper lobe cosolidation Post-Operative Diagnosis: LUng consolidation Operation Performed: CT guided core biopsy. 18 g core needle advanced into the lung parenchyma and FOUR 18-g core specimen obtained. Specimen/Specimens Removed: 18 g core x 4 Estimated Blood Loss: EBL {In ML}: 0 Blood Products Given: N/A Drains Used: No Drains Post-Op Condition: Fair Date of Surgery/Procedure: 03/09/19 Time of Surgery/Procedure: 13:30
--- NOTE | 2019-03-09 13:48 | CT ---
PROCEDURE: Date of procedure: 03/09/2019 Procedure: 1. CT-guided lung mass biopsy, Radiation: 602.50 MGy-cm Medications: The patient was sedated by anesthesiologist along with physiologic monitoring. HISTORY: Right upper lobe consolidation. TECHNIQUE: Following informed consent, the Pt's chest was marked. The Pt was placed supine on the CT table and procedure time out was performed. A noncontrast CT scan was performed. Noncontrast CT scan confirmed consolidation of the right upper lung. A skin localizer was placed on the patient's right chest and a repeat CT scan was performed. The skin was marked, prepped, and draped in the usual sterile fashion. After the skin was anesthetized with lidocaine and the patient sedated by the anesthesiologist, an 18 gauge core needle was advanced percutaneously under direct CT guidance into the mass. Upon confirmation of needle position, four 18-gauge core specimens were obtained and sent for routine pathology and culture. The needle was removed and a xeroform dressing was applied. A post biopsy CT scan showed no pneumothorax. IMPRESSION: CT guided core biopsy right upper lobe consolidation.
[2019-03-09] MEDS: Potassium Chloride 20 mEq ER Tab PO SCH (16:23)
--- NOTE | 2019-03-09 16:32 | RAD ---
Date of service: 03/09/2019 PROCEDURE: CHEST RADIOGRAPH, 1 VIEW HISTORY: Status post right lung biopsy. COMPARISON: March 08, 2019. 03:45. FINDINGS: LUNGS: Stable findings right upper lobe. PLEURA: No pneumothorax following CT-guided right upper lobe biopsy. CARDIOVASCULAR: No aortic atherosclerotic calcification present. Normal. OSSEOUS STRUCTURES: No significant abnormalities. VISUALIZED UPPER ABDOMEN: Normal. OTHER FINDINGS: None. IMPRESSION: No pneumothorax status post right upper lobe biopsy. Stable infiltrate right lung.
--- NOTE | 2019-03-09 16:51 | CP.PCM.PN ---
Subjective - Date & Time of Evaluation Date of Evaluation: 03/09/19 Time of Evaluation: 16:48 - Subjective Subjective: I D NOTE HAD BIOPSY TODAY ,AWAIT RESULTS QUANTIFERON GOLD IS INDETERMINATE X 3 ON CLINDAMYCIN/LEVOFLOXIN WILL ADD DOXYCYCLINE Objective - Vital Signs/Intake and Output Vital Signs (last 24 hours): Temp Pulse Resp BP Pulse Ox 97.5 F L 96 H 16 97/57 L 94 L 03/09/19 16:02 03/09/19 16:02 03/09/19 16:02 03/09/19 16:02 03/09/19 16:02 Intake and Output: 03/09/19 03/09/19 06:59 18:59 Intake Total 50 470 Output Total 780 200 Balance -730 270 - Medications Medications: Current Medications Acetaminophen (Tylenol 325mg Tab) 650 mg PO Q4 PRN PRN Reason: Fever >100.4 F Albuterol/Ipratropium (Duoneb 3 Mg/0.5 Mg (3 Ml) Ud) 3 ml INH RQ4 DANY Last Admin: 03/09/19 15:12 Dose: 3 ml Alprazolam (Xanax) 1 mg PO HS PRN PRN Reason: Anxiety Last Admin: 03/07/19 21:49 Dose: 1 mg Atorvastatin Calcium (Lipitor) 10 mg PO HS DANY Last Admin: 03/08/19 21:18 Dose: 10 mg Clindamycin Phosphate (Cleocin 600mg/50ml Ns) 600 mg in 50 mls @ 50 mls/hr IVPB Q8 DANY; Protocol Last Admin: 03/09/19 16:27 Dose: 50 mls/hr Levofloxacin/Dextrose (Levaquin 750mg) 750 mg in 150 mls @ 100 mls/hr IVPB DAILY DANY Last Admin: 03/09/19 11:24 Dose: 100 mls/hr Ondansetron HCl (Zofran Inj) 4 mg IVP Q4 PRN PRN Reason: Nausea/Vomiting Potassium Chloride (K-Dur 20 Meq Er Tab) 40 meq PO DAILY DANY Last Admin: 03/09/19 16:23 Dose: 40 meq Prednisone (Prednisone Tab) 40 mg PO DAILY DANY Last Admin: 03/09/19 16:23 Dose: 40 mg - Labs Labs: 03/09/19 05:15 03/09/19 05:15 PT 15.9 Seconds (9.8-13.1) H 03/09/19 08:30 INR 1.4 03/09/19 08:30 APTT 35.4 Seconds (25.6-37.1) 03/06/19 12:37
--- NOTE | 2019-03-09 20:22 | PN ---
DATE: 03/09/2019 LOCATION: The patient in ICU, bed 433. TIME SPENT: 35 minutes. The patient is seen and evaluated at the bedside. Past medical, surgical, family, social history reviewed. SUBJECTIVE: A 63-year-old female with centrilobular emphysema, admitted with shortness of breath, oxygen desaturation. Noted to have a right upper lobe of consolidation, likely postobstructive pneumonia versus community-acquired, sputum for AFB x3 negative. Initially started on anti-TB medications, subsequently discontinued. Currently on high-flow oxygen, being weaned off. Status post CT-guided needle biopsy. Postprocedure, no pneumothorax. PHYSICAL EXAMINATION: VITAL SIGNS: Temperature 99.3, heart rate 89 regular, blood pressure 90/64, mean arterial pressure 72, respiratory rate of 19, oxygen saturation 100%, end-tidal CO2 of 30. Intake 1524, output of 1400, positive balance 124. Weight 96 pounds. HEAD, EYES, EARS, NOSE AND THROAT: Pupils are reactive. Conjunctivae pink. Sclerae white. NECK: Supple. Trachea slight deviation to the right. LUNGS: Expiration prolonged, diminished in breath sounds, diminished in intensity. HEART: Rhythm regular. S1, S2 normal. ABDOMEN: Bowel sounds present. Soft. Liver and spleen not palpable. Bladder not distended. EXTREMITIES: No clubbing, cyanosis. NEUROLOGIC: Nonfocal. CURRENT MEDICATIONS: Include Tylenol 650 p.o. every 4 hours p.r.n., DuoNeb 3 mL via nebulizer every 4 hours, Xanax 1 mg p.o. h.s., Lipitor 10 mg p.o. h.s., clindamycin 600 mg IV every 8 hours, levofloxacin 750 mg IV daily, Zofran 4 mg IV every 4 hours p.r.n., potassium chloride 40 mEq p.o. daily, prednisone 40 mg p.o. daily for another three more days. LABORATORY DATA: WBC 12.7, hemoglobin 8.4, hematocrit 25.6, platelet count of 401. PT 15.9, INR 1.4. SMA-7; sodium 138, potassium 4, chloride 97, CO2 of 31, blood urea nitrogen 11, creatinine 0.4, AST 86, ALT 97, alkaline phosphatase 108, total protein 6.2, albumin 3. Urinalysis negative. Toxicology, alcohol level less than 10. Serology, QuantiFERON-TB test indeterminate. HIV test nonreactive. Microbiology, urine culture positive for yeast. Chest x-ray this morning, improved aeration in the left base including retrocardiac left lower lobe with only limited linear atelectasis or fibrosis, remaining trace pleural effusion. No interval change in dense right upper lobe infiltrate with cavitary changes. IMPRESSION: 1. Neurologic: Alert and awake. Follows commands appropriate. Seen by Palliative Care. Understands the patient is willing to undergo procedure as needed and treatment required. 2. Pulmonary: Hypoxic respiratory failure, chronic obstructive pulmonary disease/emphysema, interstitial lung disease, consolidation of the right upper lobe. On high-flow oxygen, being weaned off. 3. Cardiac: History of coronary artery disease, status post stent in the past, on aspirin. 4. Renal: No electrolyte abnormalities. BUN and creatinine is stable. 5. Endocrinology: No acute issues. 6.ID: right upper lobe pneumonia. Cap vs obstructive . AFBx 3 negative.continue antibiotics as per ID consult. 7.Hematology coagulopathy improved/ Vitamin K defficiency.Vitamin K 5 mg x1 Keep head of bed 30 degrees up. Aspiration precautions. Out of bed to chair as needed. No need for GI prophylaxis. Moses Herrera MD MTDD
[2019-03-10] MEDS: Clindamycin 600mg/50ml NS 600 MG/50 ML BAG IVPB SCH ×3 (00:14→17:07)
--- NOTE | 2019-03-10 01:07 | PN ---
DATE: 03/09/2019 SUBJECTIVE: She is status post CT guided biopsy of the lung exam. PHYSICAL EXAMINATION: VITAL SIGNS: Blood pressure is 97/57, temperature 97.5, respiratory rate 16, and pulse 96. HEENT: Pupils are equal and reactive to light. Normal appearing mucosa of the conjunctivae, oropharynx, and nasal membrane mucosa. NECK: Supple. No JVD. No carotid bruits. No lymph nodes. No thyromegaly. CHEST AND LUNGS: Bilateral symmetrical expansion. Good air exchange. No rales. No rhonchi. The patient has decreased air entry in the right side compared to the left. CARDIOVASCULAR SYSTEM: PMI is not localized. S1 and S2. No additional sounds. ABDOMEN: Normoactive bowel sounds. No tenderness. No organomegaly. No masses. EXTREMITIES: No cyanosis. No clubbing. No edema. CENTRAL NERVUS SYSTEM: Alert, awake, and oriented x2. No neurological deficits could be appreciated. ASSESSMENT: 1. Right upper lobe infiltration versus mass, status post CT guided biopsy. 2. Coronary artery disease. 3. Hypertension. PLAN: Continue current IV antibiotics, DVT prophylaxis. Follow the CT guided biopsy. Guarded prognosis. Rekha Bedoya MD
[2019-03-10] MEDS ORDERED: Lactated Ringer's 1,000 ML IV SCH (04:00)
[2019-03-10] MEDS: Albuterol-Ipratrop 3 mg / 0.5 (3 ml) UD INH SCH ×2 (05:00→08:33)
[2019-03-10 05:04] LABS: HEMOGLOBIN 8.3 g/dL (12.0-16.0); MEAN CELL VOLUME 87.8 fl (81.0-99.0); MEAN CORPUSCULAR HGB CONC 34.2 g/dL (33.0-37.0); RBC 2.77 Mil/uL (3.80-5.20); RED CELL DISTRIBUTION WIDTH 14.3 % (11.5-14.5); WHITE BLOOD COUNT 9.8 K/uL (4.8-10.8)
[2019-03-10 05:22] LABS: BLOOD UREA NITROGEN 16 mg/dl (7-17); CALCIUM 8.7 mg/dL (8.4-10.2); GFR NON-AFRICAN AMERICAN > 60
[2019-03-10 09:02] LABS: ABG ALLEN TEST YES; ARTERIAL BLOOD GAS HCO3 31.3 mmol/L (21-28); ARTERIAL BLOOD GAS HEMOGLOBIN 8.4 g/dL (11.7-17.4); ARTERIAL BLOOD GAS O2 CAPACITY 11.9 mL/dL (16-24); ARTERIAL BLOOD GAS O2 CONTENT 11.9 ML/dL (15-23); ARTERIAL BLOOD GAS O2 SAT 100.4 % (95-98); ARTERIAL BLOOD GAS PCO2 41 mm/Hg (35-45); ARTERIAL BLOOD GAS PO2 125 mm/Hg (80-100); ARTERIAL BLOOD GAS TCO2 33.3 mmol/L (22-28)
[2019-03-10] MEDS: Potassium Chloride 20 mEq ER Tab PO SCH (09:32)
[2019-03-10] MEDS: Enoxaparin 40 mg Syringe SC SCH (09:32)
[2019-03-10] MEDS: levoFLOXacin 750 mg in D5W 750 MG/150 ML BAG IVPB SCH (11:37)
--- NOTE | 2019-03-10 12:36 | RAD ---
Date of service: 03/10/2019 PROCEDURE: CHEST RADIOGRAPH, 1 VIEW HISTORY: Right Lung Consolidation COMPARISON: 03/09/2019. FINDINGS: LUNGS: There is redemonstration of consolidation in the right upper lobe with few areas of lucency which may represent cystic/cavitary changes. There is redemonstration of diffuse interstitial thickening. There is also pulmonary hyperinflation with peribronchial thickening. The left lung is clear. PLEURA: No pneumothorax or pleural effusion. CARDIOVASCULAR: The heart is normal in size. No aortic atherosclerotic calcifications present. OSSEOUS STRUCTURES: Within normal limits for the patient's age. VISUALIZED UPPER ABDOMEN: Normal. OTHER FINDINGS: None. IMPRESSION: Little interval change in consolidation in the right upper lobe with internal cystic/cavitary changes. Background of COPD and interstitial lung disease.
--- NOTE | 2019-03-10 14:53 | PN ---
DATE: 03/10/2019 SUBJECTIVE: She is status post CT-guided biopsy. The patient's appetite is improving. PHYSICAL EXAMINATION: VITAL SIGNS: Blood pressure 91/53, temperature 98.2, respiratory rate 22, and pulse 84. HEENT: Pupils equal, reactive to light. Normal-appearing mucosa of the conjunctivae, oropharynx, and nasal membrane mucosa. NECK: Supple. No JVD. No carotid bruit. No lymph node. No thyromegaly. CHEST AND LUNGS: Bilateral symmetrical expansion, decreased air entry right side. CARDIOVASCULAR: PMI not localized. S1, S2. No additional sounds. ABDOMEN: Normoactive bowel sounds. No tenderness, no organomegaly, no masses. EXTREMITIES: No cyanosis, no clubbing, no edema. CENTRAL NERVOUS SYSTEM: Alert, awake, oriented x2. No neurological deficit could be appreciated. ASSESSMENT: 1. Right upper lobe pneumonia versus mass. 2. Coronary artery disease. PLAN: Continue current IV antibiotics. Discussed with Dr. 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 We will wait for the pathology report. Continue current antibiotics. Guarded prognosis. Rekha Bedoya MD
--- NOTE | 2019-03-10 16:11 | PN ---
DATE: 03/10/2019 CRITICAL CARE PROGRESS NOTE LOCATION: The patient in ICU bed 433. TIME SPENT: 35 minutes. The patient is seen, evaluated at the bedside. Case was discussed with in multidisciplinary ICU rounds this morning. Past medical, surgical, family, social history reviewed. SUBJECTIVE: A 63-year-old female with lobar centrilobular emphysema admitted with shortness of breath and oxygen desaturation. Chest x-rays showed a right upper lobe consolidation likely post obstructive pneumonia versus community-acquired sputum for AFB x3 negative. Initially started on anti-TB medications, subsequently discontinued. Currently on high-flow nasal oxygen, being weaned off. Status post CT-guided biopsy procedure showed no pneumothorax. Noted to have [id number] cough with blood tinged expectoration, improving with time. PHYSICAL EXAMINATION: VITAL SIGNS: Temperature 98.3; heart rate of 71; blood pressure 91/53; mean arterial pressure 65; respiratory rate 15, thoracoabdominal; saturation 99% on high-flow nasal oxygen 30 liters with 60% FIO2. Intake 1582, output 900, positive balance 682. Weight 83 pounds. HEAD, EYES, EARS, NOSE AND THROAT: Pupils are reactive. Conjunctivae pink. Sclerae are white. NECK: Supple. No nystagmus. No jugular venous distention. Trachea mildly deviated to the right. CHEST: Bilateral breath sounds, diminished in intensity. Expiration prolonged. No audible wheezing. HEART: Rhythm regular. S1, S2 normal intensity. No S3, S4 gallop. No audible murmur. ABDOMEN: Bowel sounds are present. Soft. Liver and spleen not palpable. Bladder not distended. EXTREMITIES: No clubbing, cyanosis, trace edema. DP palpable. Capillary refill less than 2 seconds. SKIN: Without rash. CURRENT MEDICATIONS: Tylenol 650 every 4 hours p.r.n., aspirin 81 mg p.o. daily, Lipitor 10 mg p.o. h.s., clindamycin 610 mg IV every 8 hours, doxycycline 100 mg IV every 12 hours, Lovenox 40 mg subcu daily, status post ringer's lactate at 1 liter overnight, levofloxacin 750 mg IV daily, Zofran 4 mg IV every 4 hours p.r.n., K-Dur 20 mEq daily, prednisone 40 mg p.o. daily day 3. LABORATORY DATA: WBC trending down, currently 9.8; hemoglobin and 8.3; hematocrit 24.3; platelet count 482. PT 15.9 and INR 1.4. ABG done this morning on high-flow nasal oxygen 60% with 30 liters shows pH 7.50, pCO2 of 41, pO2 125, bicarb of 31.3, and oxygen saturation 98.7 improved from previous blood gas done on 03/04. SMA-7; sodium 140, potassium 4.1, chloride 101, CO2 of 32, blood urea nitrogen 16, creatinine 0.4, albumin 3. Microbiology, urine culture positive for yeast. Tissue culture done on 03/09 no organism seen. Stool ova and parasite negative. AFB x3 negative for mycobacterium tuberculosis. Nasal smear MRSA negative. Chest x-ray from this morning right upper lobe consolidation remains same without change, possible interstitial lung disease. IMPRESSION AND PLAN: 1. Neurologic: Alert and awake, appears anxious, and follows commands appropriate. 2. Pulmonary: Hypoxic respiratory failure secondary to centrilobular emphysema/chronic obstructive pulmonary disease, interstitial lung disease, consolidation of the right upper lobe status post CT-guided biopsy. Histopathology pending. Clinically improving. Suggestive of possible pneumonia, community-acquired; however, post obstructive pneumonia with underlying malignancy needs to be ruled out. 3. Cardiac: History of coronary artery disease status post stent in the past, on aspirin, low to normal systolic blood pressure status post intravenous bolus last night due to drop in systolic blood pressure, however, remains stable now. 4. Renal: No electrolyte abnormalities. BUN and creatinine remains stable. 5. Endocrinology: No acute issues noted. 6. ID: Right upper lobe pneumonia, community-acquired pneumonia versus obstructive. AFB x3 negative. Continue antibiotic as recommended by ID consult. Appreciated followup. 7. Hematology: Coagulopathy improved. Vitamin K deficiency status post vitamin K 5 mg p.o. Keep head of bed 30 degrees up. Aspiration precautions. Out of bed to chair as tolerated. No need for gastrointestinal prophylaxis. Increase p.o. intake. Moses Herrera MD
[2019-03-11] MEDS: Clindamycin 600mg/50ml NS 600 MG/50 ML BAG IVPB SCH ×3 (01:00→17:09)
[2019-03-11 05:12] LABS: HEMOGLOBIN 8.2 g/dL (12.0-16.0); MEAN CELL VOLUME 88.3 fl (81.0-99.0); RBC 2.73 Mil/uL (3.80-5.20); RED CELL DISTRIBUTION WIDTH 14.4 % (11.5-14.5); WHITE BLOOD COUNT 7.3 K/uL (4.8-10.8)
[2019-03-11 05:23] LABS: BLOOD UREA NITROGEN 17 mg/dl (7-17); CALCIUM 8.5 mg/dL (8.4-10.2); GFR NON-AFRICAN AMERICAN > 60
--- NOTE | 2019-03-11 10:04 | CP.PCM.PN ---
Subjective - Date & Time of Evaluation Date of Evaluation: 03/11/19 Time of Evaluation: 10:03 - Subjective Subjective: SOB IMPROVING ON 02 VIA IA LUNG PATHOLOGY REPORT PENDING Objective - Vital Signs/Intake and Output Vital Signs (last 24 hours): Temp Pulse Resp BP Pulse Ox 98.8 F 75 22 89/59 L 96 03/11/19 08:08 03/11/19 08:08 03/11/19 08:08 03/11/19 08:08 03/11/19 08:08 Intake and Output: 03/11/19 03/11/19 06:59 18:59 Intake Total 250 Output Total 750 Balance -500 - Medications Medications: Current Medications Acetaminophen (Tylenol 325mg Tab) 650 mg PO Q4 PRN PRN Reason: Fever >100.4 F Last Admin: 03/09/19 17:57 Dose: 650 mg Alprazolam (Xanax) 1 mg PO ONCE PRN PRN Reason: Anxiety Stop: 03/17/19 22:54 Last Admin: 03/10/19 23:00 Dose: 1 mg Aspirin (Ecotrin) 81 mg PO DAILY [facility] Last Admin: 03/10/19 09:31 Dose: 81 mg Atorvastatin Calcium (Lipitor) 10 mg PO HS [facility] Last Admin: 03/10/19 22:00 Dose: 10 mg Enoxaparin Sodium (Lovenox) 40 mg SC DAILY [facility]; Protocol Last Admin: 03/10/19 09:32 Dose: 40 mg Clindamycin Phosphate (Cleocin 600mg/50ml Ns) 600 mg in 50 mls @ 50 mls/hr IVPB Q8 [facility]; Protocol Last Admin: 03/11/19 01:00 Dose: 50 mls/hr Levofloxacin/Dextrose (Levaquin 750mg) 750 mg in 150 mls @ 100 mls/hr IVPB DAILY [facility] Last Admin: 03/10/19 11:37 Dose: 100 mls/hr Doxycycline Hyclate 100 mg/ (Sodium Chloride) 100 mls @ 100 mls/hr IVPB Q12 [facility]; Protocol Last Admin: 03/10/19 20:51 Dose: 100 mls/hr Lactated Ringer's (Lactated Ringer's) 1,000 mls @ 999 mls/hr IV .Q1H1M [facility] Last Admin: 03/10/19 04:09 Dose: 999 mls/hr Ondansetron HCl (Zofran Inj) 4 mg IVP Q4 PRN PRN Reason: Nausea/Vomiting Potassium Chloride (K-Dur 20 Meq Er Tab) 40 meq PO DAILY [facility] Last Admin: 03/10/19 09:32 Dose: 40 meq Prednisone (Prednisone Tab) 40 mg PO DAILY [facility] Last Admin: 03/10/19 09:33 Dose: 40 mg - Labs Labs: 03/11/19 04:29 03/11/19 04:29 PT 15.9 Seconds (9.8-13.1) H 03/09/19 08:30 INR 1.4 03/09/19 08:30 APTT 35.4 Seconds (25.6-37.1) 03/06/19 12:37 - Constitutional Appears: Chronically Ill - Head Exam Head Exam: ATRAUMATIC, NORMAL INSPECTION, NORMOCEPHALIC - Eye Exam Eye Exam: EOMI, Normal appearance, PERRL Pupil Exam: NORMAL ACCOMODATION, PERRL - ENT Exam ENT Exam: Mucous Membranes Moist, Normal Exam - Neck Exam Neck Exam: Full ROM, Normal Inspection. absent: Lymphadenopathy - Respiratory Exam Respiratory Exam: Decreased Breath Sounds, Prolonged Expiratory Phase, Rales, NORMAL BREATHING PATTERN - Cardiovascular Exam Cardiovascular Exam: REGULAR RHYTHM, +S1, +S2. absent: Murmur - GI/Abdominal Exam GI & Abdominal Exam: Soft, Normal Bowel Sounds. absent: Tenderness - Rectal Exam Rectal Exam: NORMAL INSPECTION - Extremities Exam Extremities Exam: Full ROM, Normal Capillary Refill, Normal Inspection. absent: Joint Swelling, Pedal Edema - Back Exam Back Exam: NORMAL INSPECTION - Neurological Exam Neurological Exam: Alert, Awake, CN II-XII Intact, Normal Gait, Oriented x3 - Psychiatric Exam Psychiatric exam: Normal Affect, Normal Mood - Skin Skin Exam: Dry, Intact, Normal Color, Warm Assessment and Plan - Assessment and Plan (Free Text) Assessment: RESP FAILURE IMPROVING MAY TRANSFER TO TELE AWAIT PATH REPORT
[2019-03-11] MEDS: Potassium Chloride 20 mEq ER Tab PO SCH (10:34)
[2019-03-11] MEDS: levoFLOXacin 750 mg in D5W 750 MG/150 ML BAG IVPB SCH (10:35)
[2019-03-11] MEDS: Enoxaparin 40 mg Syringe SC SCH (10:36)
[2019-03-11] MEDS: Albuterol-Ipratrop 3 mg / 0.5 (3 ml) UD INH SCH ×4 (13:19→23:25)
--- NOTE | 2019-03-11 16:42 | CP.PCM.PN ---
Subjective - Date & Time of Evaluation Date of Evaluation: 03/11/19 Time of Evaluation: 16:38 - Subjective Subjective: I D NOTE PATH.REPORT: LUNG CONSOLIDATION : ORGANIZING PNEUMONIA NO BACTERIAL GROWTH RX AT PRESENT:LEVOFLOXIN/DOXYCYCLINE/CLINDAMYCIN PATIENT HAS IMPROVED SOMEWHAT WILL NOT CHANGE ANTIBIOTIC COVERAGE AT THIS TIME Objective - Vital Signs/Intake and Output Vital Signs (last 24 hours): Temp Pulse Resp BP Pulse Ox 98.7 F 99 H 12 86/50 L 90 L 03/11/19 16:00 03/11/19 16:00 03/11/19 16:00 03/11/19 16:00 03/11/19 16:00 Intake and Output: 03/11/19 03/11/19 06:59 18:59 Intake Total 250 700 Output Total 750 401 Balance -500 299 - Medications Medications: Current Medications Acetaminophen (Tylenol 325mg Tab) 650 mg PO Q4 PRN PRN Reason: Fever >100.4 F Last Admin: 03/09/19 17:57 Dose: 650 mg Albuterol/Ipratropium (Duoneb 3 Mg/0.5 Mg (3 Ml) Ud) 3 ml INH RQ4 [facility] Last Admin: 03/11/19 15:26 Dose: 3 ml Alprazolam (Xanax) 1 mg PO ONCE PRN PRN Reason: Anxiety Stop: 03/17/19 22:54 Last Admin: 03/10/19 23:00 Dose: 1 mg Aspirin (Ecotrin) 81 mg PO DAILY [facility] Last Admin: 03/11/19 10:34 Dose: 81 mg Atorvastatin Calcium (Lipitor) 10 mg PO HS [facility] Last Admin: 03/10/19 22:00 Dose: 10 mg Enoxaparin Sodium (Lovenox) 40 mg SC DAILY [facility]; Protocol Last Admin: 03/11/19 10:36 Dose: 40 mg Clindamycin Phosphate (Cleocin 600mg/50ml Ns) 600 mg in 50 mls @ 50 mls/hr IVPB Q8 [facility]; Protocol Last Admin: 03/11/19 10:33 Dose: 50 mls/hr Levofloxacin/Dextrose (Levaquin 750mg) 750 mg in 150 mls @ 100 mls/hr IVPB DAILY [facility] Last Admin: 03/11/19 10:35 Dose: 100 mls/hr Doxycycline Hyclate 100 mg/ (Sodium Chloride) 100 mls @ 100 mls/hr IVPB Q12 [facility]; Protocol Last Admin: 03/11/19 10:37 Dose: 100 mls/hr Levofloxacin/Dextrose (Levaquin 750mg) 750 mg in 150 mls @ 100 mls/hr IVPB DAILY [facility]; Protocol Potassium Chloride (K-Dur 20 Meq Er Tab) 40 meq PO DAILY [facility] Last Admin: 03/11/19 10:34 Dose: 40 meq Prednisone (Prednisone Tab) 40 mg PO DAILY [facility] Last Admin: 03/11/19 10:37 Dose: 40 mg - Labs Labs: 03/11/19 04:29 03/11/19 04:29 PT 15.9 Seconds (9.8-13.1) H 03/09/19 08:30 INR 1.4 03/09/19 08:30 APTT 35.4 Seconds (25.6-37.1) 03/06/19 12:37
--- NOTE | 2019-03-11 21:25 | PN ---
DATE: 03/11/2019 DAILY PROGRESS NOTE SUBJECTIVE: The patient is seen today, 03/11/2019. Pathology report showed organizing pneumonia and repeated chest x-ray showed interval changes with some cystic and cavitary changes in the right upper lobe consolidation. PHYSICAL EXAMINATION: VITAL SIGNS: Currently, the patient is 4 L nasal cannula and O2 saturation in the range of 91, blood pressure 86/50, temperature 98.7, respiratory rate 12, and pulse 99. HEENT: Pupils equal, reactive to light. Normal-appearing mucosa of the conjunctivae, oropharynx and nasal membrane mucosa. NECK: Supple. No JVD. No carotid bruit. No lymph node. No thyromegaly. CHEST AND LUNGS: Bilateral symmetrical expansion. Good air exchange. No rales. Decreased air entry. CARDIOVASCULAR SYSTEM: PMI not localized. S1 and S2. No additional sounds. ABDOMEN: Normoactive bowel sounds. No tenderness. No organomegaly. No masses. EXTREMITIES: No cyanosis, no clubbing, no edema. CENTRAL NERVOUS SYSTEM: Alert, awake, oriented x2. No neurological deficit could be appreciated. ASSESSMENT: 1. Right upper lobe organizing pneumonia with cavitation and cystic changes. 2. Chronic obstructive pulmonary disease. 3. Hypoxemic respiratory failure. 4. Coronary artery disease, status post percutaneous coronary intervention. 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 DVT prophylaxis. Rekha Bedoya MD
[2019-03-12] MEDS: Clindamycin 600mg/50ml NS 600 MG/50 ML BAG IVPB SCH ×3 (00:27→17:07)
[2019-03-12] MEDS: Albuterol-Ipratrop 3 mg / 0.5 (3 ml) UD INH SCH ×6 (04:40→23:58)
[2019-03-12 06:37] LABS: MEAN CELL VOLUME 87.6 fl (81.0-99.0); MEAN CORPUSCULAR HEMOGLOBIN 29.3 pg (27.0-31.0); MEAN CORPUSCULAR HGB CONC 33.5 g/dL (33.0-37.0); RBC 2.73 Mil/uL (3.80-5.20); RED CELL DISTRIBUTION WIDTH 14.6 % (11.5-14.5); WHITE BLOOD COUNT 7.8 K/uL (4.8-10.8)
[2019-03-12 06:54] LABS: BLOOD UREA NITROGEN 16 mg/dl (7-17); CALCIUM 8.3 mg/dL (8.4-10.2); GFR NON-AFRICAN AMERICAN > 60
[2019-03-12 06:55] LABS: ALB/GLOB RATIO 0.9 (1.0-2.1); ALT/SGPT 117 U/L (9-52); AST/SGOT 100 U/L (14-36)
[2019-03-12] MEDS: Potassium Chloride 20 mEq ER Tab PO SCH (09:39)
--- NOTE | 2019-03-12 09:39 | CP.PCM.PN ---
Subjective - Date & Time of Evaluation Date of Evaluation: 03/12/19 Time of Evaluation: 09:39 - Subjective Subjective: PATH REPORT FROM CT GUIDED BX--ORGANIZING PNEUMONIA WILL CONTINUE RX ORDERED WILL CONTINUE TO FOLLOW Objective - Vital Signs/Intake and Output Vital Signs (last 24 hours): Temp Pulse Resp BP Pulse Ox 98.3 F 90 12 81/58 L 91 L 03/12/19 08:17 03/12/19 08:17 03/12/19 08:17 03/12/19 08:17 03/12/19 08:17 Intake and Output: 03/12/19 03/12/19 06:59 18:59 Intake Total 228 Output Total 500 Balance -272 - Medications Medications: Current Medications Acetaminophen (Tylenol 325mg Tab) 650 mg PO Q4 PRN PRN Reason: Fever >100.4 F Last Admin: 03/09/19 17:57 Dose: 650 mg Albuterol/Ipratropium (Duoneb 3 Mg/0.5 Mg (3 Ml) Ud) 3 ml INH RQ4 [facility] Last Admin: 03/12/19 08:26 Dose: 3 ml Alprazolam (Xanax) 1 mg PO ONCE PRN PRN Reason: Anxiety Stop: 03/17/19 22:54 Last Admin: 03/11/19 23:07 Dose: 1 mg Aspirin (Ecotrin) 81 mg PO DAILY [facility] Last Admin: 03/11/19 10:34 Dose: 81 mg Atorvastatin Calcium (Lipitor) 10 mg PO HS [facility] Last Admin: 03/11/19 21:20 Dose: 10 mg Enoxaparin Sodium (Lovenox) 40 mg SC DAILY [facility]; Protocol Last Admin: 03/11/19 10:36 Dose: 40 mg Clindamycin Phosphate (Cleocin 600mg/50ml Ns) 600 mg in 50 mls @ 50 mls/hr IVPB Q8 [facility]; Protocol Last Admin: 03/12/19 00:27 Dose: 50 mls/hr Levofloxacin/Dextrose (Levaquin 750mg) 750 mg in 150 mls @ 100 mls/hr IVPB DAILY [facility] Last Admin: 03/11/19 10:35 Dose: 100 mls/hr Doxycycline Hyclate 100 mg/ (Sodium Chloride) 100 mls @ 100 mls/hr IVPB Q12 [facility]; Protocol Last Admin: 05/08/19 21:20 Dose: 100 mls/hr Levofloxacin/Dextrose (Levaquin 750mg) 750 mg in 150 mls @ 100 mls/hr IVPB DA [facility]; Protocol Potassium Chloride (K-Dur 20 Meq Er Tab) 40 meq PO DAILY [facility] Last Admin: 03/11/19 10:34 Dose: 40 meq Prednisone (Prednisone Tab) 40 mg PO DAILY [facility] Last Admin: 03/11/19 10:37 Dose: 40 mg - Labs Labs: 03/12/19 05:20 03/12/19 05:20 PT 15.9 Seconds (9.8-13.1) H 03/09/19 08:30 INR 1.4 03/09/19 08:30 APTT 35.4 Seconds (25.6-37.1) 03/06/19 12:37
[2019-03-12] MEDS: Enoxaparin 40 mg Syringe SC SCH (09:40)
[2019-03-12] MEDS: levoFLOXacin 750 mg in D5W 750 MG/150 ML BAG IVPB SCH (11:47)
--- NOTE | 2019-03-12 23:57 | PN ---
DATE: 03/12/2019 SUBJECTIVE: The patient is seen today, 03/12/2019. She is tolerating nasal cannula with O2 saturation about 91%. PHYSICAL EXAMINATION: VITAL SIGNS: Blood pressure 88/53, temperature 98.4, respiratory rate 24, and pulse of 84. HEENT: Pupils equal and reactive to light. Normal-appearing mucosa of the conjunctivae, oropharynx, and nasal membrane mucosa. NECK: Supple. No JVD. No carotid bruit. No lymph node. No thyromegaly. CHEST AND LUNGS: Bilateral symmetrical expansion. Good air exchange. No rales, no rhonchi. CARDIOVASCULAR SYSTEM: PMI not localized. S1, S2. No additional sounds. ABDOMEN: Normoactive bowel sounds. No tenderness. No organomegaly. No masses. EXTREMITIES: No cyanosis, no clubbing, no edema. CENTRAL NERVOUS SYSTEM: Alert, awake, oriented x2. No neurological deficit could be appreciated. ASSESSMENT: 1. Right upper lobe pneumonia. 2. Anemia, multifactorial. 3. Coronary artery disease. PLAN: Follow ID and pulmonary recommendations regarding treating of pneumonia. Continue current medications. Continue oxygen supplement. [facility] MD Aureliano
[2019-03-13] MEDS: Clindamycin 600mg/50ml NS 600 MG/50 ML BAG IVPB SCH ×2 (00:39→08:42)
[2019-03-13] MEDS: Albuterol-Ipratrop 3 mg / 0.5 (3 ml) UD INH SCH ×6 (03:57→23:17)
[2019-03-13 05:03] LABS: HEMOGLOBIN 8.3 g/dL (12.0-16.0); MEAN CORPUSCULAR HEMOGLOBIN 29.8 pg (27.0-31.0); MEAN CORPUSCULAR HGB CONC 33.5 g/dL (33.0-37.0); RBC 2.8 Mil/uL (3.80-5.20); RED CELL DISTRIBUTION WIDTH 14.8 % (11.5-14.5); WHITE BLOOD COUNT 6.6 K/uL (4.8-10.8)
[2019-03-13 05:18] LABS: BLOOD UREA NITROGEN 19 mg/dl (7-17); CALCIUM 8.8 mg/dL (8.4-10.2); GFR NON-AFRICAN AMERICAN > 60
[2019-03-13] MEDS: Potassium Chloride 20 mEq ER Tab PO SCH (08:43)
[2019-03-13] MEDS: levoFLOXacin 750 mg in D5W 750 MG/150 ML BAG IVPB SCH (08:44)
[2019-03-13] MEDS: Enoxaparin 40 mg Syringe SC SCH (08:44)
--- NOTE | 2019-03-13 12:36 | CP.PCM.PN ---
Subjective - Date & Time of Evaluation Date of Evaluation: 03/13/19 Time of Evaluation: 12:38 - Subjective Subjective: SOB IMPROVING COUGH LESS NO CHEST PAINS Objective - Vital Signs/Intake and Output Vital Signs (last 24 hours): Temp Pulse Resp BP Pulse Ox 97 F L 82 12 91/59 L 98 03/13/19 08:00 03/13/19 08:00 03/13/19 08:00 03/13/19 08:00 03/13/19 08:00 - Medications Medications: Current Medications Albuterol/Ipratropium (Duoneb 3 Mg/0.5 Mg (3 Ml) Ud) 3 ml INH RQ4 [facility] Last Admin: 03/13/19 12:30 Dose: 3 ml Alprazolam (Xanax) 1 mg PO ONCE PRN PRN Reason: Anxiety Stop: 03/17/19 22:54 Last Admin: 03/11/19 23:07 Dose: 1 mg Alprazolam (Xanax) 1 mg PO HS PRN PRN Reason: Insomnia Last Admin: 03/12/19 22:06 Dose: 1 mg Aspirin (Ecotrin) 81 mg PO DAILY [facility] Last Admin: 03/13/19 08:43 Dose: 81 mg Atorvastatin Calcium (Lipitor) 10 mg PO HS [facility] Last Admin: 03/12/19 21:23 Dose: 10 mg Clindamycin Phosphate (Cleocin 600mg/50ml Ns) 600 mg in 50 mls @ 50 mls/hr IVPB Q8 [facility]; Protocol Last Admin: 03/13/19 08:42 Dose: 50 mls/hr Doxycycline Hyclate 100 mg/ (Sodium Chloride) 100 mls @ 100 mls/hr IVPB Q12 [facility]; Protocol Last Admin: 03/13/19 08:45 Dose: 100 mls/hr Levofloxacin/Dextrose (Levaquin 750mg) 750 mg in 150 mls @ 100 mls/hr IVPB DAILY [facility]; Protocol Last Admin: 03/13/19 08:44 Dose: 100 mls/hr Potassium Chloride (K-Dur 20 Meq Er Tab) 40 meq PO DAILY [facility] Last Admin: 03/13/19 08:43 Dose: 40 meq Prednisone (Prednisone Tab) 40 mg PO DAILY [facility] Last Admin: 03/13/19 08:44 Dose: 40 mg - Labs Labs: 03/13/19 04:56 03/13/19 04:56 PT 15.9 Seconds (9.8-13.1) H 03/09/19 08:30 INR 1.4 03/09/19 08:30 APTT 35.4 Seconds (25.6-37.1) 03/06/19 12:37 - Constitutional Appears: No Acute Distress - Head Exam Head Exam: ATRAUMATIC, NORMAL INSPECTION, NORMOCEPHALIC - Eye Exam Eye Exam: EOMI, Normal appearance, PERRL Pupil Exam: NORMAL ACCOMODATION, PERRL - ENT Exam ENT Exam: Mucous Membranes Moist, Normal Exam - Neck Exam Neck Exam: Full ROM, Normal Inspection. absent: Lymphadenopathy - Respiratory Exam Respiratory Exam: Decreased Breath Sounds, Prolonged Expiratory Phase, Rales, Wheezes, NORMAL BREATHING PATTERN - Cardiovascular Exam Cardiovascular Exam: REGULAR RHYTHM, +S1, +S2. absent: Murmur - GI/Abdominal Exam GI & Abdominal Exam: Soft, Normal Bowel Sounds. absent: Tenderness - Rectal Exam Rectal Exam: NORMAL INSPECTION - Extremities Exam Extremities Exam: Full ROM, Normal Capillary Refill, Normal Inspection. absent: Joint Swelling, Pedal Edema - Back Exam Back Exam: NORMAL INSPECTION - Neurological Exam Neurological Exam: Alert, Awake, CN II-XII Intact, Normal Gait, Oriented x3 - Psychiatric Exam Psychiatric exam: Normal Affect, Normal Mood - Skin Skin Exam: Dry, Intact, Normal Color, Warm Assessment and Plan - Assessment and Plan (Free Text) Assessment: ACUTE RESPIRATORY FAILURE WITH PNEUMONIA--IMPROVING SEVERE HYPOXEMIA WITH O2 SAT OF 83% OFF OXYGEN COPD EXAC Plan: CONTINUE ANTIBIOTIC THERAPY WILL BENEFIT FROM HOME O2 ON D/C HOME
[2019-03-13] MEDS: Pantoprazole 40 mg EC Tab PO SCH (16:28)
[2019-03-14] MEDS: Albuterol-Ipratrop 3 mg / 0.5 (3 ml) UD INH SCH ×6 (03:33→23:05)
[2019-03-14] MEDS: levoFLOXacin 750 MG TAB PO SCH (08:51)
[2019-03-14] MEDS: Potassium Chloride 20 mEq ER Tab PO SCH (08:51)
[2019-03-14] MEDS: Pantoprazole 40 mg EC Tab PO SCH (08:52)
--- NOTE | 2019-03-14 10:28 | CP.PCM.PN ---
Subjective - Date & Time of Evaluation Date of Evaluation: 03/14/19 Time of Evaluation: 10:28 - Subjective Subjective: FEELS BETTER SOB IMPROVED NO CHEST PAINS COUGH LESS Objective - Vital Signs/Intake and Output Vital Signs (last 24 hours): Temp Pulse Resp BP Pulse Ox 98.7 F 54 L 18 89/54 L 97 03/14/19 08:27 03/14/19 08:27 03/14/19 08:27 03/14/19 08:27 03/14/19 08:27 - Medications Medications: Current Medications Albuterol/Ipratropium (Duoneb 3 Mg/0.5 Mg (3 Ml) Ud) 3 ml INH RQ4 [facility] Last Admin: 03/14/19 08:02 Dose: 3 ml Alprazolam (Xanax) 1 mg PO ONCE PRN PRN Reason: Anxiety Stop: 03/17/19 22:54 Last Admin: 03/11/19 23:07 Dose: 1 mg Alprazolam (Xanax) 1 mg PO HS PRN PRN Reason: Insomnia Last Admin: 03/13/19 22:03 Dose: 1 mg Aspirin (Ecotrin) 81 mg PO DAILY [facility] Last Admin: 03/14/19 08:51 Dose: 81 mg Atorvastatin Calcium (Lipitor) 10 mg PO HS [facility] Last Admin: 03/13/19 21:53 Dose: 10 mg Clindamycin HCl (Cleocin) 300 mg PO Q8 [facility]; Protocol Last Admin: 03/14/19 08:50 Dose: 300 mg Doxycycline Hyclate (Doryx) 100 mg PO Q12 [facility]; Protocol Last Admin: 03/14/19 08:50 Dose: 100 mg Levofloxacin (Levaquin) 750 mg PO DAILY [facility]; Protocol Last Admin: 03/14/19 08:51 Dose: 750 mg Pantoprazole Sodium (Protonix Ec Tab) 40 mg PO DAILY [facility] Last Admin: 03/14/19 08:52 Dose: 40 mg Potassium Chloride (K-Dur 20 Meq Er Tab) 40 meq PO DAILY [facility] Last Admin: 03/14/19 08:51 Dose: 40 meq Prednisone (Prednisone Tab) 40 mg PO DAILY [facility] Last Admin: 03/14/19 09:16 Dose: 40 mg - Labs Labs: 03/13/19 04:56 03/13/19 04:56 PT 15.9 Seconds (9.8-13.1) H 03/09/19 08:30 INR 1.4 03/09/19 08:30 APTT 35.4 Seconds (25.6-37.1) 03/06/19 12:37 - Constitutional Appears: No Acute Distress, Chronically Ill - Head Exam Head Exam: ATRAUMATIC, NORMAL INSPECTION, NORMOCEPHALIC - Eye Exam Eye Exam: EOMI, Normal appearance, PERRL Pupil Exam: NORMAL ACCOMODATION, PERRL - ENT Exam ENT Exam: Mucous Membranes Moist, Normal Exam - Neck Exam Neck Exam: Full ROM, Normal Inspection. absent: Lymphadenopathy - Respiratory Exam Respiratory Exam: Prolonged Expiratory Phase, Rales, NORMAL BREATHING PATTERN - Cardiovascular Exam Cardiovascular Exam: REGULAR RHYTHM, +S1, +S2. absent: Murmur - GI/Abdominal Exam GI & Abdominal Exam: Soft, Normal Bowel Sounds. absent: Tenderness - Rectal Exam Rectal Exam: NORMAL INSPECTION - Extremities Exam Extremities Exam: Full ROM, Normal Capillary Refill, Normal Inspection. absent: Joint Swelling, Pedal Edema - Back Exam Back Exam: NORMAL INSPECTION - Neurological Exam Neurological Exam: Alert, Awake, CN II-XII Intact, Normal Gait, Oriented x3 - Psychiatric Exam Psychiatric exam: Normal Affect, Normal Mood - Skin Skin Exam: Dry, Intact, Normal Color, Warm Assessment and Plan - Assessment and Plan (Free Text) Assessment: RESPIRATORY FAILURE IMPROVED HYPOXEMIA--IMPROVED PNEUMONIA--CLINICALLY IMPROVED COPD EXAC--IMPROVED Plan: CXR TODAY INCREASE ACTIVITY
--- NOTE | 2019-03-14 12:28 | PN ---
DATE: 03/13/2019 SUBJECTIVE: The patient was seen on 03/13/2019. PHYSICAL EXAMINATION: VITAL SIGNS: Blood pressure 102/67, temperature 98.1, respiratory rate 19, and pulse 90. HEENT: Pupils are equal and reactive to light. Normal-appearing mucosa of the conjunctivae, oropharynx, and nasal membrane mucosa. NECK: Supple. No JVD. No carotid bruit. No lymph node. No thyromegaly. CHEST AND LUNGS: Bilateral symmetrical expansion. Good air exchange. No rales. No rhonchi. The patient has decreased air entry in right lung. CARDIOVASCULAR SYSTEM: PMI not localized. S1 and S2. No additional sounds. ABDOMEN: Normoactive bowel sounds. No tenderness, no organomegaly and no masses. EXTREMITIES: No cyanosis, no clubbing, no edema. CENTRAL NERVOUS SYSTEM: Alert, awake, and oriented x2. No neurological deficit could be appreciated. ASSESSMENT: 1. Right upper lobe cavitary/cystic infiltration. 2. Chronic obstructive pulmonary disease. 3. Coronary artery disease. PLAN: Switch the patient's antibiotics to p.o. as her IV line is out. The patient so far is tolerating nasal cannula with intermittent removal of the nasal cannula and O2 saturation is around 90-92%. Discussed with the qualified craft worker electrician, Dr. Scott Dillard and with Dr. Hernandez. We will try sending the patient to medical floor and encourage ambulation and decide regarding discharge, on p.o. antibiotics and home oxygen. Rekha Bedoya MD
--- NOTE | 2019-03-14 17:45 | RAD ---
Date of service: 03/14/2019 HISTORY: PNEUMONIA COMPARISON: Frontal chest radiograph 03/10/2019. TECHNIQUE: Chest PA and lateral views FINDINGS: LUNGS: No left-sided infiltrate. Diminished infiltrate right upper lobe with underlying cavitation not completely excluded. PLEURA: No significant pleural effusion identified. No pneumothorax apparent. CARDIOVASCULAR: No aortic atherosclerotic calcification present. Normal cardiac size. No pulmonary vascular congestion. OSSEOUS STRUCTURES: No significant abnormalities. VISUALIZED UPPER ABDOMEN: Normal. OTHER FINDINGS: None. IMPRESSION: Diminishing right upper lobe infiltrate with questionable cavitation developing though this is not definite. Remaining lung boone are clear and well aerated. No pulmonary vascular congestion.
[2019-03-15] MEDS: Albuterol-Ipratrop 3 mg / 0.5 (3 ml) UD INH SCH ×6 (03:19→23:04)
[2019-03-15] MEDS: Potassium Chloride 20 mEq ER Tab PO SCH (09:29)
[2019-03-15] MEDS: levoFLOXacin 750 MG TAB PO SCH (09:29)
[2019-03-15] MEDS: Pantoprazole 40 mg EC Tab PO SCH (09:30)
--- NOTE | 2019-03-15 09:58 | CP.PCM.PN ---
Subjective - Date & Time of Evaluation Date of Evaluation: 03/15/19 Time of Evaluation: 10:01 - Subjective Subjective: CLINICALLY IMPROVED SOB IMPROVED AMBULATING HART WAY WITHOUT OXYGEN COUGH IMPROVED Objective - Vital Signs/Intake and Output Vital Signs (last 24 hours): Temp Pulse Resp BP Pulse Ox 97.7 F 92 H 20 91/58 L 96 03/15/19 09:19 03/15/19 09:19 03/15/19 09:19 03/15/19 09:03/15/19 09:19 - Medications Medications: Current Medications Albuterol/Ipratropium (Duoneb 3 Mg/0.5 Mg (3 Ml) Ud) 3 ml INH RQ4 DANY Last Admin: 03/15/19 08:30 Dose: 3 ml Alprazolam (Xanax) 1 mg PO ONCE PRN PRN Reason: Anxiety Stop: 03/17/19 22:54 Last Admin: 03/11/19 23:07 Dose: 1 mg Alprazolam (Xanax) 1 mg PO HS PRN PRN Reason: Insomnia Last Admin: 03/14/19 23:34 Dose: 1 mg Aspirin (Ecotrin) 81 mg PO DAILY DANY Last Admin: 03/15/19 09:29 Dose: 81 mg Atorvastatin Calcium (Lipitor) 10 mg PO HS DANY Last Admin: 03/14/19 21:11 Dose: 10 mg Clindamycin HCl (Cleocin) 300 mg PO Q8 DANY; Protocol Last Admin: 03/15/19 09:28 Dose: 300 mg Doxycycline Hyclate (Doryx) 100 mg PO Q12 DANY; Protocol Last Admin: 03/15/19 09:28 Dose: 100 mg Levofloxacin (Levaquin) 750 mg PO DAILY [facility]; Protocol Last Admin: 03/15/19 09:29 Dose: 750 mg Pantoprazole Sodium (Protonix Ec Tab) 40 mg PO DAILY [facility] Last Admin: 03/15/19 09:30 Dose: 40 mg Potassium Chloride (K-Dur 20 Meq Er Tab) 40 meq PO DAILY DANY Last Admin: 03/15/19 09:29 Dose: 40 meq Prednisone (Prednisone Tab) 40 mg PO DAILY [facility] Last Admin: 03/15/19 09:29 Dose: 40 mg - Labs Labs: 03/13/19 04:56 03/13/19 04:56 PT 15.9 Seconds (9.8-13.1) H 03/09/19 08:30 INR 1.4 03/09/19 08:30 APTT 35.4 Seconds (25.6-37.1) 03/06/19 12:37 - Constitutional Appears: No Acute Distress - Head Exam Head Exam: ATRAUMATIC, NORMAL INSPECTION, NORMOCEPHALIC - Eye Exam Eye Exam: EOMI, Normal appearance, PERRL Pupil Exam: NORMAL ACCOMODATION, PERRL - ENT Exam ENT Exam: Mucous Membranes Moist, Normal Exam - Neck Exam Neck Exam: Full ROM, Normal Inspection. absent: Lymphadenopathy - Respiratory Exam Respiratory Exam: Decreased Breath Sounds, Prolonged Expiratory Phase, Rales, NO RMAL BREATHING PATTERN Additional comments: OFF O2 - Cardiovascular Exam Cardiovascular Exam: REGULAR RHYTHM, +S1, +S2. absent: Murmur - GI/Abdominal Exam GI & Abdominal Exam: Soft, Normal Bowel Sounds. absent: Tenderness - Rectal Exam Rectal Exam: NORMAL INSPECTION - Extremities Exam Extremities Exam: Full ROM, Normal Capillary Refill, Normal Inspection. absent: Joint Swelling, Pedal Edema - Back Exam Back Exam: NORMAL INSPECTION - Neurological Exam Neurological Exam: Alert, Awake, CN II-XII Intact, Normal Gait, Oriented x3 - Psychiatric Exam Psychiatric exam: Normal Affect, Normal Mood - Skin Skin Exam: Dry, Intact, Normal Color, Warm - Additional Findings Additional findings: CXR--IMPROVEMENT OF CAVITARY INFILTERATE RUL Assessment and Plan - Assessment and Plan (Free Text) Assessment: RESPIRATORY FAILURE IMPROVED PNEUMONIA IMPROVED COPD-IMPROVED ASHD Plan: CONTINUE CURRENT RX WILL OBTAIN ABGS ON RA IN AM TO DETERMINE NEED FOR HOME O2 WILL PROBABLY NEED PO ANTIBIOTICS X 2 MORE WEEKS,THEN REPEAT CXR TO RE EVALUATE PROGRESS OF PNEUMONIA OUT PT
--- NOTE | 2019-03-15 12:43 | PN ---
DATE: 03/14/2019 SUBJECTIVE: There is no cardiopulmonary distress and the patient is able to walk without oxygen for more than 200 feet with O2 saturation 95%. PHYSICAL EXAMINATION: VITAL SIGNS: Blood pressure 90/60, temperature 98.4, respiratory rate 18 and pulse 85. HEENT: Pupils equal, reactive to light. Normal-appearing mucosa of the conjunctivae, oropharynx and nasal membrane mucosa. NECK: Supple. No JVD. No carotid bruit. No lymph node. No thyromegaly. CHEST AND LUNGS: Bilateral symmetrical expansion. Good air exchange. No rales, no rhonchi. CARDIOVASCULAR SYSTEM: PMI not localized. S1, S2. No additional sounds. ABDOMEN: Normoactive bowel sounds. No tenderness, no organomegaly. No masses. EXTREMITIES: No cyanosis, no clubbing, no edema. CENTRAL NERVOUS SYSTEM: Alert, awake, oriented x2. NEUROLOGIC: No neurological deficit could be appreciated. ASSESSMENT: Improving right upper lobe pneumonia, chronic obstructive pulmonary disease, coronary artery disease. PLAN: Continue current p.o. antibiotics and if the patient continued to improve, we will plan to discharge on 03/16/2019. Mervin MD Aureliano
[2019-03-16] MEDS: Albuterol-Ipratrop 3 mg / 0.5 (3 ml) UD INH SCH ×3 (03:50→15:11)
[2019-03-16 07:19] LABS: ABG ALLEN TEST YES; ARTERIAL BLOOD GAS HCO3 30.3 mmol/L (21-28); ARTERIAL BLOOD GAS HEMOGLOBIN 9.3 g/dL (11.7-17.4); ARTERIAL BLOOD GAS O2 CAPACITY 12.7 mL/dL (16-24); ARTERIAL BLOOD GAS O2 CONTENT 12.5 ML/dL (15-23); ARTERIAL BLOOD GAS O2 SAT 98.1 % (95-98); ARTERIAL BLOOD GAS PCO2 37 mm/Hg (35-45); ARTERIAL BLOOD GAS PH 7.52 (7.35-7.45); ARTERIAL BLOOD GAS PO2 72 mm/Hg (80-100); ARTERIAL BLOOD GAS TCO2 31.3 mmol/L (22-28)
[2019-03-16 08:22] VITALS: RESP 18
--- NOTE | 2019-03-16 09:11 | CP.PCM.PN ---
Subjective - Date & Time of Evaluation Date of Evaluation: 03/16/19 Time of Evaluation: 09:14 - Subjective Subjective: FEELS BETTER NO CHEST PAINS/SOB COUGH IMPROVED AMBULATES WITHOUT ASSISTANCE OR SOB 02 SAT--96% ON RA PO2 72 ON ABD--RA Objective - Vital Signs/Intake and Output Vital Signs (last 24 hours): Temp Pulse Resp BP Pulse Ox 97.6 F 83 18 101/68 96 03/16/19 08:22 03/16/19 08:22 03/16/19 08:22 03/16/19 08:22 03/16/19 08:22 - Medications Medications: Current Medications Albuterol/Ipratropium (Duoneb 3 Mg/0.5 Mg (3 Ml) Ud) 3 ml INH RQ4 DANY Last Admin: 03/16/19 07:31 Dose: 3 ml Alprazolam (Xanax) 1 mg PO ONCE PRN PRN Reason: Anxiety Stop: 03/17/19 22:54 Last Admin: 03/11/19 23:07 Dose: 1 mg Alprazolam (Xanax) 1 mg PO HS PRN PRN Reason: Anxiety Last Admin: 03/15/19 22:27 Dose: 1 mg Aspirin (Ecotrin) 81 mg PO DAILY DANY Last Admin: 03/15/19 09:29 Dose: 81 mg Atorvastatin Calcium (Lipitor) 10 mg PO HS DANY Last Admin: 03/15/19 21:14 Dose: 10 mg Clindamycin HCl (Cleocin) 300 mg PO Q8 DANY; Protocol Last Admin: 03/16/19 01:47 Dose: 300 mg Doxycycline Hyclate (Doryx) 100 mg PO Q12 DANY; Protocol Last Admin: 03/15/19 21:14 Dose: 100 mg Levofloxacin (Levaquin) 750 mg PO DAILY [facility]; Protocol Last Admin: 03/15/19 09:29 Dose: 750 mg Pantoprazole Sodium (Protonix Ec Tab) 40 mg PO DAILY [facility] Last Admin: 03/15/19 09:30 Dose: 40 mg Potassium Chloride (K-Dur 20 Meq Er Tab) 40 meq PO DAILY DANY Last Admin: 03/15/19 09:29 Dose: 40 meq Prednisone (Prednisone Tab) 40 mg PO DAILY DANY Last Admin: 03/15/19 09:29 Dose: 40 mg - Labs Labs: 03/13/19 04:56 03/13/19 04:56 PT 15.9 Seconds (9.8-13.1) H 03/09/19 08:30 INR 1.4 03/09/19 08:30 APTT 35.4 Seconds (25.6-37.1) 03/06/19 12:37 - Constitutional Appears: No Acute Distress - Head Exam Head Exam: ATRAUMATIC, NORMAL INSPECTION, NORMOCEPHALIC - Eye Exam Eye Exam: EOMI, Normal appearance, PERRL Pupil Exam: NORMAL ACCOMODATION, PERRL - ENT Exam ENT Exam: Mucous Membranes Moist, Normal Exam - Neck Exam Neck Exam: Full ROM, Normal Inspection. absent: Lymphadenopathy - Respiratory Exam Respiratory Exam: Clear to Ausculation Bilateral, Prolonged Expiratory Phase, NORMAL BREATHING PATTERN - Cardiovascular Exam Cardiovascular Exam: REGULAR RHYTHM, +S1, +S2. absent: Murmur - GI/Abdominal Exam GI & Abdominal Exam: Soft, Normal Bowel Sounds. absent: Tenderness - Rectal Exam Rectal Exam: NORMAL INSPECTION - Extremities Exam Extremities Exam: Full ROM, Normal Capillary Refill, Normal Inspection. absent: Joint Swelling, Pedal Edema - Back Exam Back Exam: NORMAL INSPECTION - Neurological Exam Neurological Exam: Alert, Awake, CN II-XII Intact, Normal Gait, Oriented x3 - Psychiatric Exam Psychiatric exam: Normal Affect, Normal Mood - Skin Skin Exam: Dry, Intact, Normal Color, Warm Assessment and Plan - Assessment and Plan (Free Text) Assessment: RESPIRATORY FAILURE--IMPROVED NECROTIZING PNEUMONIAMPROVED COPD-IMPROVED Plan: NO NEED FOR HOME O2 REPEAT CXR IN 2 WEEKS TO EVALUATE PROGRESS OF PULMONARY INFILTERATE CONTINUE ORAL ANTIBIOTIC RX UNTIL PNEUMONIA COMPLETELY RESOLVES NO FURTHER PULMONARY INTERVENTION FOR NOW WILL SIGN OFF CASE AND SEE AGAIN AT YOUR REQUEST
[2019-03-16] MEDS: levoFLOXacin 750 MG TAB PO SCH (09:29)
[2019-03-16] MEDS: Pantoprazole 40 mg EC Tab PO SCH (09:29)
[2019-03-16] MEDS: Potassium Chloride 20 mEq ER Tab PO SCH (09:29)
[2019-03-16 15:55] VITALS: BP 101/57; PULSE 95; TEMP 97.7; O2SAT 95
--- NOTE | 2019-03-17 06:12 | DS ---
REASON FOR ADMISSION: This is a 63-year-old female with significant past medical history for coronary artery disease, status post PCI who was admitted for right-sided multilobar pneumonia. COURSE OF HOSPITALIZATION: The patient was admitted initially to intensive care unit due to hypoxic respiratory failure. The patient had a pulmonary consult done by Dr. Hernandez and infectious disease consult done by Dr. Soriano. The patient was started on multiple antibiotics, and eventually she got better. Oxygenation was better and the patient was transferred to medical floor where she was switched to p.o. antibiotics. The patient was able to have an O2 saturation 95% on room air after exertion. The patient was discharged on current p.o. antibiotics and to follow with her primary care physician and advised that she would need a repeat CAT scan of the chest in two weeks to follow up until resolution of pneumonia. FINAL DIAGNOSES: Multilobar right-sided pneumonia, history of coronary artery disease, chronic obstructive pulmonary disease. Rekha Bedoya MD
== END 2019-03-16 16:05 | disposition home or self-care (01) | DRG 584 ==
LOC: H.ER 21:45 → H.ERHOLD 02-26 01:03 → H.ICU/CCU 02-26 04:24 → H.MEDSURG1 03-13 17:55
PROVIDERS: ADMIT Internal Medicine; ATTEND Internal Medicine
PROC: 0BBC3ZX Excision of Right Upper Lung Lobe, Percutaneous Approach, Diagnostic (ICD-10-PCS; principal; 2019-03-09 12:00)
DX: A41.9 Sepsis, unspecified organism (principal); J18.1 Lobar pneumonia, unspecified organism; R65.21 Severe sepsis with septic shock; J96.01 Acute respiratory failure with hypoxia; N17.9 Acute kidney failure, unspecified; J43.2 Centrilobular emphysema; E87.6 Hypokalemia; Z79.82 Long term (current) use of aspirin; Z87.891 Personal history of nicotine dependence; Z95.5 Presence of coronary angioplasty implant and graft; I25.10 Atherosclerotic heart disease of native coronary artery without angina pectoris; R79.1 Abnormal coagulation profile; D64.9 Anemia, unspecified; I25.2 Old myocardial infarction; F41.9 Anxiety disorder, unspecified; J84.89 Other specified interstitial pulmonary diseases; Z91.041 Radiographic dye allergy status; Z91.040 Latex allergy status; Z88.0 Allergy status to penicillin; Z91.018 Allergy to other foods